=== PATIENT | female | born 1945 | race Caucasian/White ===

== ENCOUNTER → 2017-08-25 11:45 | Outpatient (CLI) | payer MEDICARE, SELFPAY ==
[2017-08-25 12:35] LABS: Absolute Neutrophil Count 2.8 X10^3/uL (2.0-7.7); Basophil# 0.02 X10^3/uL; Basophil% 0.4 % (0-1); Eosinophil# 0.05 X10^3/uL; Eosinophils% 1.1 % (0-5); Hematocrit 34.9 % (37-47); Hemoglobin 11.8 g/dl (12.0-15.0); Lymphocyte % 28.5 % (19-41); Mean Corp Hgb Conc 33.8 g/gl (32-36); Mean Corpuscular Hgb 28.6 pg (27.0-32.0); Mean Corpuscular Volume 84.5 fL (81-99); Mean Platelet Vol. 9.6 fl (6.2-12.0); Monocyte# 0.43 X10^3/uL; Monocyte% 9.4 % (0-10); Neutrophil # 2.75 X10^3/uL (2.7-7.7); Neutrophil % 60.4 % (47-70); Platelet Count 302 K/mm3 (150-450); RBC Distribution Width CV 12.3 % (11.6-14.6); RBC Distribution Width SD 37.3 fl (35.1-43.9); Red Blood Count 4.13 M/mm3 (4.2-5.4); White Blood Count 4.6 K/mm3 (4.4-11.0)
[2017-08-25 12:36] LABS: POSITIVE COUNT NO; POSITIVE DIFFERENTIAL NO; POSITIVE MORPHOLOGY NO
[2017-08-25 12:56] LABS: AST(SGOT) 15 U/L (15-37); Alanine Aminotransfer ALT/SGPT 18 U/L (13-56); Albumin, Serum 3.6 g/dL (3.2-5.0); Alkaline Phosphatase 109 U/L (45-117); Anion Gap 7 (5-15); BUN 15 mg/dL (7-18); BUN/Creat Ratio 21.2 RATIO (10-20); Chloride 100 mmol/L (98-107); Creatinine, Serum 0.71 mg/dL (0.55-1.02); EST Glomerular Filtration Rate 87 mL/min (>60); Est Glom Filt Rate - Afr Amer 105 mL/min (>60); Globulin 3.6 g/dL (2.2-4.2); Glucose 95 mg/dL (74-106); Potassium 4.2 mmol/L (3.5-5.1); Protein, Total 7.2 g/dL (6.4-8.2); Sodium Level 135 mmol/L (136-145)
== END ==
PROVIDERS: Family Provider Nurse Practitioner; PCP Nurse Practitioner; Visit Provider Internal Medicine Rheumatology
DX: M05.70 Rheumatoid arthritis with rheumatoid factor of unspecified site without organ or systems involvement (principal); M65.331 Trigger finger, right middle finger; M65.332 Trigger finger, left middle finger; G40.802 Other epilepsy, not intractable, without status epilepticus; I10 Essential (primary) hypertension; M35.00 Sjogren syndrome, unspecified
CPT/HCPCS: 36415; 80053; 85025

== ENCOUNTER → 2017-09-26 09:19 | Outpatient (CLI) | payer MEDICARE, SELFPAY ==
--- NOTE | 2017-09-26 09:22 | BI_ITS ---
MAMMOGRAPHY - BILATERAL SCREENING 3-D [place] SYNTHESIS REASON FOR EXAM: Female, 71 years old. Bilateral Screening 3-D tomosynthesis PERTINENT HISTORY: Aunt with breast cancer.. TECHNIQUE: 2-D mammograms and 3-D [place] synthesis of the breast (s) were performed. CAD was performed. COMPARISON: 09/21/2016 FINDINGS: The breast composition is composed of scattered fibroglandular density. Scattered benign calcifications are seen. No dense spiculated masses or suspicious microcalcifications are identified. No architectural distortion is identified. There is no skin thickening or retraction. There has been no significant change since the prior study. BI/SCREENING MAMM (CAD), BILAT IMPRESSION: No mammographic signs of malignancy. Routine yearly mammograms recommended. ASSESSMENT CATEGORY: BIRADS Category 2: Benign. A letter regarding these results will be sent to the patient by the facility within 30 days. FOLLOW UP RECOMMENDATION: Yearly follow up mammogram recommended. (A) Approximately 10% of breast cancers are not detected by mammography. A normal mammogram should not delay biopsy of a clinically suspicious abnormality. Electronically Signed: Jordan Gutierrez MD at 8:53 EDT , Service support ,
--- NOTE | 2017-09-26 09:27 | BD_ITS ---
STUDY: DUAL ENERGY X-RAY ABSORPTIOMETRY / DXA REASON FOR EXAM: Female, 71 years old. Postmenopausal screening TECHNIQUE: Bone Mineral Density (BMD) measurements of lumbar spine and bilateral hips were obtained. COMPARISON: 2014 FINDINGS: Lumbar Spine (L1-L4): g/cm2 (0.973) / T-score (-1.6) / Z-score (0.1) Findings are suggestive of osteopenia with a moderate fracture risk. Left Femur Total: g/cm2 (0.952) / T-score (-0.4) / Z-score (1.1) Left Femoral Neck: g/cm2 (0.949) / T-score (-0.6) / Z-score (1.1) Right Femur Total: g/cm2 (0.881) / T-score (-1.0) / Z-score (0.6) Right Femoral Neck: g/cm2 (0.923) / T-score (-0.8) / Z-score (0.9) The T-Scores on the most recent prior examination were: Lumbar Spine (L1-L4): There has been no significant change of bone density since the previous examination. BD/Dexa Bone Density Study IMPRESSION: The patient is considered osteopenic as outlined below according to World Connor Organization (WHO) criteria with a moderate fracture risk. There has been no significant change of bone density since the previous examination. Reference Information: The T-score is the number of standard deviations above or below the standard which is normal for young adults at their peak bone mineral density. The World Health Organization (WHO) interprets the T-scores as follows: Above -1 Normal bone density Between -1 and -2.5 Osteopenia Equal to / or below -2.5 Osteoporosis As a practical clinical guideline, osteopenia may be graded as follows: Mild -1 through -1.5 Moderate -1.6 through -2.0 Severe -2.1 through -2.4 The Z-score is the number of standard deviations above or below age-matched controls. A Z-score of less than -1.5 would be considered abnormal. References: 1. NIH Osteoporosis and Related Bone Diseases http://www.osteo.org 2. International Society for Clinical Densitometry http://www.iscd.org 3. National Osteoporosis Foundation http://www.nof.org Electronically Signed: Jordan Gutierrez MD at 12:30 EDT , Service support ,
== END ==
PROVIDERS: Family Provider Nurse Practitioner; PCP Nurse Practitioner; Visit Provider Nurse Practitioner
DX: Z12.31 Encounter for screening mammogram for malignant neoplasm of breast (principal); Z78.0 Asymptomatic menopausal state; M85.80 Other specified disorders of bone density and structure, unspecified site
CPT/HCPCS: 77063; 77067; 77080

== ENCOUNTER 2017-11-01 22:53 | Observation (INO) | payer MEDICARE, SELFPAY ==
[2017-11-01 22:53] VITALS: BP 178/85; PULSE 68; RESP 18; TEMP 36.4; O2SAT 99; BMI 31.7
--- NOTE | 2017-11-01 23:09 | ED.VISSUMM ---
- ER Visit Summary Date of Service: 11/01/17 Chief Complaint: [] Chest ache History of Present Illness: The patient is a 72 F left-sided chest ache for last 2 days at rest gradual onset lasting several hours of the time. Most of today she has felt it. It was intermittent yesterday but more constant today. To achiness. Current severity is mild. Worsened or relieved by nothing. No injury. No associated symptoms. She takes a baby aspirin. She has never had a stress test or heart cath. Cardiovascular risk factors are hypertension and hypercholesterolemia only. No PE or dissection risk factors. She does have rheumatoid arthritis. Not significantly movement related. No injury Physical Examination: [] Vital signs reviewed General: Well-nourished well-developed Head: Normocephalic atraumatic Eyes: Pupils equal round and reactive to light extraocular movements intact ENT: TMs clear no hemotympanum no trauma Neck: Nontender full range of motion Cardiovascular: Regular rate rhythm no murmurs normal S1-S2 Respiratory: No distress clear to auscultation bilaterally chest nontender Abdomen: Soft nontender nondistended normal bowel sounds no masses Back: Nontender no CVA tenderness Extremities: Nontender active range of motion ?4 extremities no trauma Skin: Normal color no trauma Neuro alert oriented cranial nerves II through XII intact normal strength sensation reflexes Test Results: [] Emergency Department Course and Treatment: [] EKG shows sinus rhythm with a primary heart block. No ischemic findings. No STEMI. T-wave flattening inferior lead III only rate is 62. Lab work unremarkable including troponin. Hemoglobin slightly low at 10.8 which is chronic for the patient. Chronically low white blood cell count as well. Chest x-ray negative. On reevaluation the patient's resting comfortably. No significant discomfort. At this time her heart score is a 5 moderate risk. She will be admitted for further cardiac rule out. I have a low suspicion for PE or dissection Treatment Plan: [] Disposition: [] Impression: [] Left-sided chest pain This note was generated with [employer] dictation software. It may contain incorrect words, spelling, and punctuation that were not noted in review of the chart prior to signing ED Disposition - Plan for ED Patient: Chief Complaint: Chest Pain Referrals: Estrellita Cortez [Primary Care Provider] -
[2017-11-01 23:12] VITALS: O2SAT 98
[2017-11-01] MEDS: Aspirin 81 MG TAB.CHEW 324 MG PO (23:14)
[2017-11-01 23:40] LABS: Absolute Lymphocyte Count 1.27 X10^3/ul (0.83-4.51); Basophil# 0.02 X10^3/uL; Basophil% 0.5 % (0-1); Eosinophil# 0.04 X10^3/uL; Eosinophils% 1.1 % (0-5); Hematocrit 30.8 % (37-47); Hemoglobin 10.8 g/dl (12.0-15.0); Lymphocyte # 1.27 X10^3/ul (4.0); Lymphocyte % 34.1 % (19-41); Mean Corp Hgb Conc 35.1 g/gl (32-36); Mean Corpuscular Hgb 29.3 pg (27.0-32.0); Mean Corpuscular Volume 83.7 fL (81-99); Mean Platelet Vol. 9.1 fl (6.2-12.0); Monocyte# 0.36 X10^3/uL; Monocyte% 9.7 % (0-10); Neutrophil # 2.02 X10^3/uL (2.7-7.7); Neutrophil % 54.3 % (47-70); POSITIVE COUNT NO; POSITIVE DIFFERENTIAL NO; POSITIVE MORPHOLOGY NO; Platelet Count 225 K/mm3 (150-450); RBC Distribution Width CV 12.2 % (11.6-14.6); RBC Distribution Width SD 36.3 fl (35.1-43.9); Red Blood Count 3.68 M/mm3 (4.2-5.4); White Blood Count 3.7 K/mm3 (4.4-11.0)
[2017-11-01 23:49] LABS: Anion Gap 9 (5-15); BUN 16 mg/dL (7-18); BUN/Creat Ratio 19.1 RATIO (10-20); Calcium,Total 8.4 mg/dL (8.5-10.1); Chloride 98 mmol/L (98-107); Creatinine, Serum 0.84 mg/dL (0.55-1.02); EST Glomerular Filtration Rate 71 mL/min (>60); Est Glom Filt Rate - Afr Amer 86 mL/min (>60); Estimated Creatinine Clearance 61.07 ml/min; Glucose 96 mg/dL (74-106); Potassium 3.8 mmol/L (3.5-5.1); Sodium Level 136 mmol/L (136-145)
[2017-11-02 00:29] VITALS: BP 139/73; PULSE 81; RESP 16; O2SAT 96
--- NOTE | 2017-11-02 00:32 | PCM.HP.STD ---
Problem List (1) Chest pain Status: Acute Qualifiers: Chest pain type: unspecified Qualified Code(s): R07.9 - Chest pain, unspecified (2) Leukopenia Status: Chronic Qualifiers: Leukopenia type: neutropenia Neutropenia type: unspecified Qualified Code(s): D70.9 - Neutropenia, unspecified (3) Anemia Status: Chronic Qualifiers: Anemia type: unspecified type Qualified Code(s): D64.9 - Anemia, unspecified (4) Rheumatoid arthritis Status: Chronic Qualifiers: Rheumatoid arthritis location: unspecified site Rheumatoid factor presence: unspecified presence Qualified Code(s): M06.9 - Rheumatoid arthritis, unspecified (5) Epilepsy Status: Chronic Qualifiers: Epilepsy type: unspecified Intractability: not intractable Status epilepticus: without status epilepticus Qualified Code(s): G40.909 - Epilepsy, unspecified, not intractable, without status epilepticus (6) Hyperlipidemia Status: Chronic Qualifiers: Hyperlipidemia type: pure hypercholesterolemia Qualified Code(s): E78.00 - Pure hypercholesterolemia, unspecified; E78.0 - Pure hypercholesterolemia (7) Hypertension Status: Chronic Qualifiers: Hypertension type: essential hypertension Qualified Code(s): I10 - Essential (primary) hypertension History of Present Illness Date of Admission: 11/02/17 Chief Complaint: Chest pain The patient is a 72 y/o F w/ PMHx: Chronic Leukopenia, Chronic Normocytic Anemia, Epilepsy, Rheumatoid Arthritis, HTN, HLD, Obesity who presents to the [facility] ED on 11/02/17 with history of onset of left sided chest aching starting the day prior, intermittent, rated 4/10 when present with no associated symptoms including nausea, emesis, diaphoresis or dyspnea, but noted to be worse with certain activities, i.e. bending over. Upon evaluation upon admission the patient noted currently resolution of chest pain. In the ED work-up included T 97.6, HR 68, BP 178/85-->139/73, RR 18, 99% on RA, CBC w/ WBC 3.7, Hgb 10.8, Plts 225 without shift, unremarkable BMP, trop < 0.015, CXR without acute process, EKG w/ chronic inferior lead III T wave flattening w/ 1AVB otherwise unremarkable. In the ED patient administered ASA. Past Medical History Past Medical History (Chronic Problems): Chronic Problems Leukopenia (Chronic) Anemia (Chronic) Pancytopenia (Chronic) Rheumatoid arthritis (Chronic) Epilepsy (Chronic) Hyperlipidemia (Chronic) Hypertension (Chronic) Allergies No Known Allergies Allergy (Verified 11/01/17 22:56) Home Medications: Ambulatory Orders Medication Instructions Recorded Aspirin [Aspirin, Baby] 81 mg PO DAILY@0800 03/25/13 Citalopram [Celexa] 20 mg PO DAILY 03/25/13 Hydroxychloroquine [Plaquenil] 200 mg PO DAILYCM 03/25/13 Losartan/Hydrochlorothiazide 1 tab PO DAILY 03/25/13 [Hyzaar 50-12.5 Tablet] Triamcinolone Acetonide [Nasacort 1 spray NASAL DAILY PRN 03/25/13 Aq Nasal [place]] Tegretol Xr 400 mg PO BID 03/26/13 Cholecalciferol (Vitamin D3) 1,000 unit PO DAILY 11/01/17 [Vitamin D3] Surgical History: - - C-sestion x 3, Cholecystectomy, Mastoid surgery, Ear Tubes, T+A. Psychiatric History: Depression BALLISTICIAN History: No pertinent BALLISTICIAN history Lives: Spouse/ Significant Other Smoking Status: Never smoker Tobacco Use: Non-smoker Alcohol: None Drugs: None - *Family History Maternal History Items: Cancer, Heart Disease Paternal History Items: Cancer Review of Systems Constitutional: Reports: Fatigue. Denies: Chills, Fever, Weight Change HEENT: Denies: Head Aches, Sinus Congestion, Sinus Drainage Cardiovascular: Reports: Chest Pain. Denies: Chest Pressure, Chest Tightness, Light Headedness, Orthopnea, Palpitations, Syncope Respiratory: Denies: Cough, Shortness of Breath, Shortness of breath at rest, Shortness of breath upon exertion, Sputum production Gastrointestinal: Denies: Abdominal Pain, Nausea, Vomiting Genitourinary: Denies: Dysuria Musculoskeletal: Reports: Joint stiffness. Denies: Joint Pain, Joint Tenderness Skin: Denies: Rash, Wounds Neurological: Denies: Numbness, Tingling, Focal weakness Psychiatric: Denies: Anxiety, Depression, Homicidal Ideations, Suicidal Ideations Hematologic/ Lymphatic: Reports: Anemia. Denies: Easy Bruising, Easy Bleeding VTE Information - Inpt Only VTE Present on Admission: No VTE Mechan Device Prophylaxis: SCD's VTE Pharm Prophylaxis ordered?: Yes Patient Problems: Active and Suspected Problems Chest pain (Acute) Subjective: Seated upright in the bed, NAD, notes currently chest pain resolved. Objective: Physical Examination: General: awake, alert, oriented x 3 and cooperative, seated upright in bed in no apparent distress. Skin: normal color, turgor, no icterus, cyanosis. HEENT: AT/NC, EOMI, PERRLA, MMM, no carotid bruits or JVD noted. Lungs: CTA bilaterally, moderate effort, mild decrease BL bases, no rales, ronchi or wheezing. Heart: Regular rate and rhythm; no gallop, rub audible. Abdomen: soft, obese, NTTP, ND, normal BS, no HSM. Extremities: no cyanosis, clubbing, or edema. Neurological: patient awake, alert, oriented x 3; cognitive function intact; pupils equally reactive to light and accomodation; cranial nerves II-XII grossly normal, moving all 4 extremities, no focal deficits, strength preserved. Psychiatric: affect appears normal, no acute evidence of depressive or anxiety feelings. - Physical Exam Vital Signs Temp Pulse Resp BP Pulse Ox 97.6 F L 81 16 139/73 H 96 11/01/17 22:53 11/02/17 00:29 11/02/17 00:29 11/02/17 00:29 11/02/17 00:29 Oxygen Flow Rate (L/min) 2 Oxygen Delivery Method Room Air Weight: 208 lb 12.444 oz Body Mass Index (BMI) 31.7 Laboratory Tests Past 24 Hrs 11/01/17 11/01/17 23:05 23:05 WBC 3.7 L RBC 3.68 L Hgb 10.8 L Hct 30.8 L MCV 83.7 MCH 29.3 MCHC 35.1 RDW 12.2 RDW Differential 36.3 Plt Count 225 MPV 9.1 Immature Gran % (Auto) 0.300 Neut % (Auto) 54.3 Lymph % (Auto) 34.1 [place] % (Auto) 9.7 Eos % (Auto) 1.1 Baso % (Auto) 0.5 Absolute Neuts (auto) 2.0 Absolute Lymphs (auto) 1.27 Total Counted Not Reportable Sodium 136 Potassium 3.8 Chloride 98 Carbon Dioxide 29.0 Anion Gap 9 BUN 16 Creatinine 0.84 Estim Creat Clear Calc 61.07 Est GFR (MDRD) Af Amer 86 Est GFR (MDRD) Non-Af 71 BUN/Creatinine Ratio 19.1 Glucose 96 Calcium 8.4 L Troponin I < 0.015 Assessment/Plan All Active Problems Chest pain (Acute) Flu-like symptoms (Acute) Neutropenic fever (Acute) The patient is a 72 y/o F w/ PMHx: Chronic Leukopenia, Chronic Normocytic Anemia, Epilepsy, Rheumatoid Arthritis, HTN, HLD, Obesity who presents to the [facility] ED on 11/02/17 with history of onset of left sided chest aching starting the day prior, intermittent, rated 4/10 when present with no associated symptoms including nausea, emesis, diaphoresis or dyspnea, but noted to be worse with certain activities, i.e. bending over. (1) Chest Pain: In the ED work-up included T 97.6, HR 68, BP 178/85-->139/73, RR 18, 99% on RA, CBC w/ WBC 3.7, Hgb 10.8, Plts 225 without shift, unremarkable BMP, trop < 0.015, CXR without acute process, EKG w/ chronic inferior lead III T wave flattening w/ 1AVB otherwise unremarkable. In the ED patient administered ASA. Will admit to PCU, place on a monitored bed to assure no acute myocardial infarction with serial cardiac enzymes and EKGs. Given patient age and underlying history of RA suspect limited exercise ability thus will proceed with AM nuclear stress testing. ASA, NG, morphine. FLP in AM. Mag pending. (2) Chronic Normocytic Anemia, Leukopenia: Admission CBC w/ WBC 3.7, Hgb 10.8, Plts 225 without shift, stable compared to baseline, previously also had thrombocytopenia. Unclear specific etiology but suspect likely to her chronic usage of AED specifically tegretol. (3) Rheumatoid Arthritis: Maintain on home plaquenil regimen. (4) Seizure Disorder: Continue home tegretol regimen. (5) Hypertension: Will maintain on losartan/HCTZ, PRN hydralazine. (6) Hyperlipidemia: Not on regimen, obtain FLP in AM. (7) Obesity: Weight loss and lifestyle changes encouraged. (8) DVT Prophylaxis: SCDs, lovenox. Code Visit OBSV E&M: 03473 Initial observation care L3
--- NOTE | 2017-11-02 00:40 | NURSING ---
Er litigation attorney aware pt ok for floor at this time.
[2017-11-02 01:17] VITALS: BP 151/68; PULSE 56; PULSE 58; RESP 16; TEMP 36.6; O2SAT 99
[2017-11-02 01:19] VITALS: BMI 31.6
[2017-11-02 01:32] VITALS: BMI 31.6
[2017-11-02] MEDS: 0.9% Normal Saline 1,000 ML 100 ML IV (01:48)
[2017-11-02 03:03] VITALS: PULSE 58
[2017-11-02 03:18] LABS: Hematocrit 28.5 % (37-47); Hemoglobin 10.2 g/dl (12.0-15.0); Mean Corp Hgb Conc 35.8 g/gl (32-36); Mean Corpuscular Hgb 29.7 pg (27.0-32.0); Mean Corpuscular Volume 82.8 fL (81-99); Mean Platelet Vol. 9.1 fl (6.2-12.0); Platelet Count 211 K/mm3 (150-450); RBC Distribution Width CV 12.1 % (11.6-14.6); RBC Distribution Width SD 35.6 fl (35.1-43.9); Red Blood Count 3.44 M/mm3 (4.2-5.4); White Blood Count 3.8 K/mm3 (4.4-11.0)
[2017-11-02 03:32] LABS: AST(SGOT) 16 U/L (15-37); Alanine Aminotransfer ALT/SGPT 15 U/L (13-56); Albumin, Serum 3.1 g/dL (3.2-5.0); Alkaline Phosphatase 93 U/L (45-117); Anion Gap 10 (5-15); BUN 15 mg/dL (7-18); BUN/Creat Ratio 21.8 RATIO (10-20); Calcium,Total 8.1 mg/dL (8.5-10.1); Chloride 99 mmol/L (98-107); Cholesterol 159 mg/dL (200); Creatinine, Serum 0.69 mg/dL (0.55-1.02); EST Glomerular Filtration Rate 89 mL/min (>60); Est Glom Filt Rate - Afr Amer 108 mL/min (>60); Globulin 3.2 g/dL (2.2-4.2); Glucose 98 mg/dL (74-106); High Density Lipoprotein 65 mg/dL; Potassium 4.1 mmol/L (3.5-5.1); Protein, Total 6.3 g/dL (6.4-8.2); Sodium Level 135 mmol/L (136-145); Triglycerides 98 mg/dL; Very Low Density Lipoprotein 20 mg/dL (5-40)
[2017-11-02 03:50] LABS: Scan Indicated on CBC? Y/N NO
[2017-11-02 05:28] LABS: International Normalized Ratio 1.1; Prothrombin Time (Protime)PT. 13.8 SECONDS (11.7-14.9)
[2017-11-02 05:29] LABS: Partial Thromboplast Time 28.8 Seconds (24.1-36.2)
[2017-11-02 05:38] VITALS: O2SAT 95
[2017-11-02 06:04] VITALS: BP 163/70; PULSE 61; RESP 16; TEMP 36.9; O2SAT 95
[2017-11-02] MEDS: Aspirin 81 MG TAB.CHEW PO (06:07)
[2017-11-02 08:30] VITALS: PULSE 56
[2017-11-02] MEDS: Hydroxychloroquine 200 MG Tablet PO (09:09)
[2017-11-02] MEDS: HYDROCHLOROTHIAZIDE 12.5 MG CAPSULE PO (09:10)
[2017-11-02] MEDS: Losartan Potassium 50 MG Tablet PO (09:10)
[2017-11-02] MEDS: Citalopram 20 MG Tablet PO (09:10)
[2017-11-02] MEDS: Famotidine 20 MG Tablet PO (09:11)
--- NOTE | 2017-11-02 09:51 | STRESSREP ---
Stress Test Report Date: 11/02/2017 Procedure: Exercise tolerance test/imaging study Indications: Chest pain Consent: Per the patient Procedure: The patient exercised on a Osman protocol for 4 minutes completing Stage I and 1 minute of Stage II achieving a peak heart rate of 127 bpm (85 % predicted maximal heart rate) with a peak blood pressure 172/60 mmHg and a peak MET capacity of 5 METs. The baseline ECG demonstrated sinus bradycardia. The peak exercise ECG demonstrated somatic/motion artifact with no obvious ECG changes. There were no cardiac dysrhythmias pretest, during exercise, or recovery. The functional capacity was considered average. There was no complaint of chest discomfort during exercise or recovery. The examination was discontinued secondary to dyspnea. Impression: 1. Technically adequate (percent predicted maximal heart rate greater than 85%) exercise tolerance test 2. Peak exercise ECG demonstrated somatic/motion artifact with no obvious ECG changes 3. There were no cardiac dysrhythmias pretest, during exercise, or recovery. 4. Nuclear images pending Myocardial perfusion imaging study: Technique: The patient was injected with 11.9 mCi of technetium 99m Cardiolite and subsequently rest SPECT Cardiolite nuclear imaging was obtained in the horizontal long, vertical long, and short axis views. The patient exercised on a Osman protocol for 4 minutes completing Stage I and 1 minute of Stage II achieving a peak heart rate of 127 bpm (85 % predicted maximal heart rate) with a peak blood pressure 172/60 mmHg and a peak MET capacity of 5 METs. The patient was injected with 33.6 mCi of technetium 99m Cardiolite and subsequently stress SPECT Cardiolite nuclear imaging was obtained in the horizontal long, vertical long, and short axis views. A gated Cardiolite study at peak stress was obtained. Interpretation: Rest and stress SPECT Cardiolite nuclear imaging status post realignment, normalization, and attenuation correction, demonstrates the appearance of relative uniform tracer uptake and myocardial perfusion appearing within normal limits. There is end systolic thickening and brightening. The gated Cardiolite study demonstrates myocardial thickening and inward wall motion. The reported LVEF is 74 %. Impression: 1. Rest and stress SPECT Cardiolite nuclear imaging demonstrate relative uniform tracer uptake and myocardial perfusion appearing within normal limits. 2. The gated Cardiolite study reports an LVEF of 74 %. This note was generated with [employer] software. It may contain incorrect words, spelling, and punctuation that were not noted in checking the note before signing.
--- NOTE | 2017-11-02 10:07 | PCM.DC ---
- Discharge Diagnoses Current Active Problems: Current Active and Chronic Problems Leukopenia (Chronic) Anemia (Chronic) Chest pain (Acute) You will use the following diet at home:: Cardiac Discharge Activity: Return to Normal Activity Call your doctor if you observe: Shortness of breath, Dizziness, Fainting spells, Chest pain Additional Instructions: Your blood pressure was above goal during admission. Recommned checking your blood pressure twice daily and documenting findings to report to primary care provider. You may need to increase your losartan/HCTZ regimen to twice daily if blood pressure remains elevated. Allergies/Adverse Reactions: Allergies No Known Allergies Allergy (Verified 11/01/17 22:56) Medications to take at Discharge Aspirin [Aspirin, Baby] 81 mg PO DAILY@0800 03/25/13 Citalopram [Celexa] 20 mg PO DAILY 03/25/13 Hydroxychloroquine [Plaquenil] 200 mg PO DAILYCM 03/25/13 Losartan/Hydrochlorothiazide [Hyzaar 50-12.5 Tablet] 1 tab PO DAILY 03/25/13 Triamcinolone Acetonide [Nasacort Aq Nasal [place]] 1 spray NASAL DAILY PRN 03/25/13 Tegretol Xr 400 mg PO BID 03/26/13 Cholecalciferol (Vitamin D3) [Vitamin D3] 1,000 unit PO DAILY 11/01/17 Primary Care Physician: Estrellita Cortez [Primary Care Provider] - Please follow up with your Primary Care Physician in: 1 Week Test Results: Test results from this visit will be discussed in further detail at your follow-up appointment, if applicable. Proposed Discharge Date: 11/02/17
--- NOTE | 2017-11-02 10:11 | PCM.DC.SUM ---
<Chely Carrera - Last Filed: 11/02/17 10:23> Discharge Date and Diagnosis Date of Admission: 11/02/17 Date of Discharge: 11/02/17 - Primary Discharge Diagnosis Active and Suspected Problems 1. Noncardiac chest pain - Secondary Discharge Diagnosis Chronic Problems Leukopenia (Chronic) Anemia (Chronic) Pancytopenia (Chronic) Rheumatoid arthritis (Chronic) Epilepsy (Chronic) Hyperlipidemia (Chronic) Hypertension (Chronic) Hospital Course and Treatment Imaging Results: Operations: None Procedures: Stress test Summary of Care Provided: The patient is a 72 year old F admitted 11/02/2017 due to chest pain. She has a past medical history of chronic leukopenia, chronic normocytic anemia, epilepsy, rheumatoid arthritis, hypertension, hyperlipidemia, obesity. Patient denies further chest pain during admission. Troponin negative. Chest x-ray without acute process. EKG with chronic inferior lead III T-wave flattening. Patient underwent nuclear stress test which was negative for ischemia. Blood pressure mildly elevated during admission. Patient notes she checks her blood pressure at home and is typically 130s systolically. Recommend patient check blood pressure twice daily at home and document findings to report to primary care physician. If her blood pressure remains above goal, recommend increasing losartan/HCT regimen to twice daily. Follow-up with primary care physician in 1 week. Other chronic medical conditions as noted above are stable at this time. Patient seen exam prior to discharge. Alert, oriented, no acute distress. Lungs clear. Heart rate regular rate and rhythm, no murmur. Abdomen soft, nontender. No edema. Neuro grossly intact. Normal affect. Patient seen exam prior to discharge. Physical assessment as noted above. Patient is stable for discharge home with a follow-up recommendations as noted above. This patient was seen by DEJAH Mcneill under the supervision of Dr. Mitchell. Discharge Diet: Low fat/ Low Cholesterol Discharge Activity: Return to Normal Activity Call your doctor if you observe: Shortness of breath, Dizziness, Fainting spells, Chest pain Home Medications: Medications to take at Discharge Aspirin [Aspirin, Baby] 81 mg PO DAILY@0800 03/25/13 Citalopram [Celexa] 20 mg PO DAILY 03/25/13 Hydroxychloroquine [Plaquenil] 200 mg PO DAILYCM 03/25/13 Losartan/Hydrochlorothiazide [Hyzaar 50-12.5 Tablet] 1 tab PO DAILY 03/25/13 Triamcinolone Acetonide [Nasacort Aq Nasal [place]] 1 spray NASAL DAILY PRN 03/25/13 Tegretol Xr 400 mg PO BID 03/26/13 Cholecalciferol (Vitamin D3) [Vitamin D3] 1,000 unit PO DAILY 11/01/17 Primary Care Physician: Estrellita Cortez [Primary Care Provider] - Please follow up with your Primary Care Physician in: 1 Week Additional Instructions: Your blood pressure was above goal during admission. Recommned checking your blood pressure twice daily and documenting findings to report to primary care provider. You may need to increase your losartan/HCTZ regimen to twice daily if blood pressure remains elevated. Disposition: Home Minutes spent on discharge:: 35 Patient Condition:: Stable Medical Necessity - Tobacco Use Smoking Status: Never smoker Tobacco Use: Non-smoker Meaningful Use Info Meaningful Use Diagnoses (Choose all that apply): None applicable <StephenVeronica Mariya - Last Filed: 11/02/17 11:50> Discharge Date and Diagnosis - Secondary Discharge Diagnosis Chronic Problems Leukopenia (Chronic) Anemia (Chronic) Pancytopenia (Chronic) Rheumatoid arthritis (Chronic) Epilepsy (Chronic) Hyperlipidemia (Chronic) Hypertension (Chronic) Hospital Course and Treatment Imaging Results: 11/02/17 05:55 Nuclear Stress Test - Treadmil [NM] Routine Summary of Care Provided: Patient seen by Chely POND under my supervision. The patient is a 72 year old F with past medical history as documented above. She was admitted on 11/02/2017 with a complaint of left-sided chest aching of one day duration which was intermittent and rated about 4/10. She had no associated nausea, lightheadedness, dizziness, nausea or vomiting. Troponins were negative chest x-ray showed no acute cardiopulmonary process and EKG showed no acute ST changes. Chest pain had resolved at time of review and didnt recur. She was admitted and managed for chest pain, to rule out ACS. She had a stress test on 11/02/17 which was negative. Seen and examined. Agree with above assessment and plan by Chely POND. Blood pressure was noted to be mildly elevated during admission being in the 150s and 160s systolic. However according to patient blood pressure at home is usually in the 130s systolic. Patient was discharged to continue her home medications and check her blood pressure at home and documented. She is present a log of her blood pressure to her primary care doctor. [] Code Visit Inpatient E&M: 22163 Disch Hosp
== END 2017-11-02 10:08 | disposition home or self-care (01) ==
LOC: ED 23:30 → PCU 11-02 00:38
PROVIDERS: Admitting Provider Family Medicine; Emergency Provider Emergency Medicine; Family Provider Nurse Practitioner; PCP Nurse Practitioner; Visit Provider Student in an Organized Health Care Education/Training Program
DX: R07.89 Other chest pain (principal); I10 Essential (primary) hypertension; M06.9 Rheumatoid arthritis, unspecified; Z79.82 Long term (current) use of aspirin; E78.5 Hyperlipidemia, unspecified; G40.909 Epilepsy, unspecified, not intractable, without status epilepticus; D64.9 Anemia, unspecified; E66.9 Obesity, unspecified; Z68.31 Body mass index [BMI] 31.0-31.9, adult; Z71.3 Dietary counseling and surveillance; Z79.899 Other long term (current) drug therapy
CPT/HCPCS: 36415; 71046; 78452; 80048; 80053; 80061; 83735; 84484; 85025; 85027; 85610; 85730; 93005; 93017; 96360; 96361; 99218; 99283; A9500; J7030; A4216; G0378; J2785

== ENCOUNTER → 2018-02-07 09:31 | Outpatient (CLI) | payer MEDICARE, SELFPAY ==
[2018-02-07 10:13] LABS: Absolute Lymphocyte Count 0.84 X10^3/ul (0.83-4.51); Basophil# 0.01 X10^3/uL; Basophil% 0.3 % (0-1); Eosinophil# 0.05 X10^3/uL; Eosinophils% 1.6 % (0-5); Hematocrit 31.8 % (37-47); Hemoglobin 10.8 g/dl (12.0-15.0); Lymphocyte # 0.84 X10^3/ul (4.0); Lymphocyte % 27.3 % (19-41); Mean Corpuscular Hgb 28.6 pg (27.0-32.0); Mean Corpuscular Volume 84.4 fL (81-99); Mean Platelet Vol. 9.1 fl (6.2-12.0); Monocyte# 0.22 X10^3/uL; Monocyte% 7.1 % (0-10); Neutrophil # 1.95 X10^3/uL (2.7-7.7); Neutrophil % 63.4 % (47-70); Platelet Count 256 K/mm3 (150-450); RBC Distribution Width CV 12.4 % (11.6-14.6); RBC Distribution Width SD 37.2 fl (35.1-43.9); Red Blood Count 3.77 M/mm3 (4.2-5.4); White Blood Count 3.1 K/mm3 (4.4-11.0)
[2018-02-07 10:15] LABS: Color, Urine Yellow (Yellow); Glucose, Dipstick Normal (Normal); Ketone-Dipstick Negative (Negative); Leukocyte Esterase-Dipstick 100 /ul (Negative); Nitrite-Dipstick Negative (Negative); Occult Blood-Urine Negative /ul (Negative); Protein-Dipstick 15 mg/dl (Negative); Urine Bilirubin Dipstick Negative (Negative); Urine Clarity Clear (Clear); Urine Urobilinogen Normal (Normal)
[2018-02-07 10:18] LABS: POSITIVE COUNT NO; POSITIVE DIFFERENTIAL NO; POSITIVE MORPHOLOGY NO
[2018-02-07 10:33] LABS: Microalbumin,Random Urine 8.1 mg/L (NO RANGE EST.); Microalbumin:Creatinine Ratio 6.8 mg/g CRE (<30 mg/g CRE)
[2018-02-07 10:46] LABS: Carbamazepine (Tegretol) 8.4 ug/mL (4.0-12.0)
[2018-02-07 10:47] LABS: Vitamin B12 951 pg/mL (211-911); Vitamin D,25 Hydroxy 53.8 ng/mL (29.95-100.01)
[2018-02-07 10:52] LABS: ALB/GLOB Ratio 0.9 RATIO (0.9-2.4); AST(SGOT) 17 U/L (15-37); Alanine Aminotransfer ALT/SGPT 19 U/L (13-56); Albumin, Serum 3.3 g/dL (3.2-5.0); Alkaline Phosphatase 109 U/L (45-117); Anion Gap 9 (5-15); BUN 15 mg/dL (7-18); BUN/Creat Ratio 21.5 RATIO (10-20); Calcium,Total 8.8 mg/dL (8.5-10.1); Chloride 101 mmol/L (98-107); Cholesterol 189 mg/dL (200); EST Glomerular Filtration Rate 88 mL/min (>60); Est Glom Filt Rate - Afr Amer 106 mL/min (>60); Globulin 3.7 g/dL (2.2-4.2); Glucose 83 mg/dL (74-106); High Density Lipoprotein 67 mg/dL; Potassium 4.3 mmol/L (3.5-5.1); Sodium Level 139 mmol/L (136-145); Triglycerides 118 mg/dL; Very Low Density Lipoprotein 24 mg/dL (5-40)
== END ==
PROVIDERS: Family Provider Nurse Practitioner; PCP Nurse Practitioner; Referring Provider Nurse Practitioner; Visit Provider Nurse Practitioner
DX: I10 Essential (primary) hypertension (principal); R56.9 Unspecified convulsions; D72.819 Decreased white blood cell count, unspecified; E53.8 Deficiency of other specified B group vitamins; E55.9 Vitamin D deficiency, unspecified
CPT/HCPCS: 36415; 80053; 80061; 80156; 81002; 82043; 82306; 82570; 82607; 82746; 85025

== ENCOUNTER → 2018-05-25 07:34 | Outpatient (CLI) | payer MEDICARE, SELFPAY ==
--- NOTE | 2018-05-25 07:37 | ECHOD_ITS ---
Reason For Study: Murmur Procedure This was a 2D Doppler, Color Flow transthoracic echocardiogram. Exam performed in department. Left Ventricle Normal LV size. The estimated ejection fraction is 60 %. Left ventricular systolic function is normal. Stage 2 diastolic dysfunction. No regional wall motion abnormalities noted. Right Ventricle Normal RV size. Normal systolic function. Atria The left atrium is mildly enlarged. Normal right atrium. Mitral Valve Normal mitral valve. Mild (1+) mitral valve insufficiency. Tricuspid Valve Normal tricuspid valve. Mild (1+) tricuspid valve insufficiency. Pulmonary artery systolic pressure is 30 mmHg. Aortic Valve Trisinus/trileaflet aortic valve. Mild focal aortic valve calcification. Pulmonic Valve Normal pulmonic valve. Great Vessels Normal aortic root. The pulmonary artery is normal size. Normal inferior vena cava. Pericardium/Pleural No pericardial effusion. MMode/2D Measurements & Calculations LVIDd: 4.5 cm IVSd: 1.2 cm Ao root diam: 3.2 cm LVIDs: 2.7 cm LVPWd: 1.1 cm LA dimension: 3.6 cm RVDd: 3.6 cm FS: 39.4 % LAV(MOD-sp4): 71.1 ml LA A4 area: 23.1 cm2 RA A4 area: 14.2 cm2 Time Measurements MV dec time: 0.28 sec Doppler Measurements & Calculations MV E max nayan: 89.5 cm/sec Lat Peak E' Nayan: 5.9 cm/sec Med Peak E' Nayan: 5.7 cm/sec MV A max nayan: 118.6 cm/sec E/E' lat: 15.2 E/E' med: 15.6 MV E/A: 0.75 MV V2 max: 128.1 cm/sec MV P1/2t max nayan: 103.0 cm/sec Ao V2 max: 161.3 cm/sec MV max P.6 mmHg MV P1/2t: 115.0 msec Ao max P.4 mmHg MV V2 mean: 70.6 cm/sec MV dec slope: 262.5 cm/sec2 Ao V2 mean: 104.0 cm/sec MV mean P.3 mmHg MVA(P1/2t): 1.9 cm2 Ao mean P.9 mmHg MV V2 VTI: 40.9 cm Ao V2 VTI: 36.8 cm LV V1 max: 114.2 cm/sec PA V2 max: 111.7 cm/sec PI end-d nayan: 105.9 cm/sec LV V1 max P.2 mmHg LV V1 mean P.1 mmHg LV V1 mean: 65.2 cm/sec LV V1 VTI: 25.3 cm TR max nayan: 250.8 cm/sec TR max P.2 mmHg Interpretation Summary Normal LV size. The estimated ejection fraction is 60 %. Left ventricular systolic function is normal. Stage 2 diastolic dysfunction. The left atrium is mildly enlarged. Ordering Physician: Estrellita Cortez Referring Physician: Estrellita Cortez Performed By: Dominic Greene RCS
== END ==
PROVIDERS: Family Provider Nurse Practitioner; PCP Nurse Practitioner; Referring Provider Nurse Practitioner; Visit Provider Nurse Practitioner
DX: R01.1 Cardiac murmur, unspecified (principal)
CPT/HCPCS: 93306

== ENCOUNTER → 2018-08-07 11:08 | Outpatient (CLI) | payer MEDICARE, SELFPAY ==
[2018-08-07 11:39] LABS: Absolute Lymphocyte Count 0.97 X10^3/ul (0.83-4.51); Absolute Neutrophil Count 1.9 X10^3/uL (2.0-7.7); Eosinophil# 0.05 X10^3/uL; Eosinophils% 1.5 % (0-5); Hematocrit 29.6 % (37-47); Lymphocyte # 0.97 X10^3/ul (4.0); Lymphocyte % 29.8 % (19-41); Mean Corp Hgb Conc 33.8 g/gl (32-36); Mean Corpuscular Volume 82.9 fL (81-99); Monocyte% 9.2 % (0-10); Neutrophil # 1.92 X10^3/uL (2.7-7.7); Neutrophil % 58.9 % (47-70); POSITIVE COUNT NO; POSITIVE DIFFERENTIAL NO; POSITIVE MORPHOLOGY NO; Platelet Count 249 K/mm3 (150-450); RBC Distribution Width CV 12.2 % (11.6-14.6); RBC Distribution Width SD 36.1 fl (35.1-43.9); Red Blood Count 3.57 M/mm3 (4.2-5.4); White Blood Count 3.3 K/mm3 (4.4-11.0)
[2018-08-07 12:05] LABS: ALB/GLOB Ratio 0.9 RATIO (0.9-2.4); AST(SGOT) 14 U/L (15-37); Alanine Aminotransfer ALT/SGPT 15 U/L (13-56); Albumin, Serum 3.1 g/dL (3.2-5.0); Alkaline Phosphatase 106 U/L (45-117); Anion Gap 8 (5-15); BUN 13 mg/dL (7-18); BUN/Creat Ratio 18.4 RATIO (10-20); Calcium,Total 8.3 mg/dL (8.5-10.1); Chloride 99 mmol/L (98-107); Creatinine, Serum 0.71 mg/dL (0.55-1.02); EST Glomerular Filtration Rate 86 mL/min (>60); Est Glom Filt Rate - Afr Amer 105 mL/min (>60); Globulin 3.4 g/dL (2.2-4.2); Glucose 90 mg/dL (74-106); Potassium 3.9 mmol/L (3.5-5.1); Protein, Total 6.5 g/dL (6.4-8.2); Sodium Level 134 mmol/L (136-145)
== END ==
PROVIDERS: Family Provider Nurse Practitioner; PCP Nurse Practitioner; Referring Provider Internal Medicine Rheumatology; Visit Provider Internal Medicine Rheumatology
DX: M05.70 Rheumatoid arthritis with rheumatoid factor of unspecified site without organ or systems involvement (principal); M35.00 Sjogren syndrome, unspecified; M65.331 Trigger finger, right middle finger; M65.332 Trigger finger, left middle finger; I10 Essential (primary) hypertension; G40.802 Other epilepsy, not intractable, without status epilepticus
CPT/HCPCS: 36415; 80053; 85025

== ENCOUNTER → 2018-09-28 10:48 | Outpatient (CLI) | payer MEDICARE, SELFPAY ==
--- NOTE | 2018-09-28 10:49 | BI_ITS ---
MAMMOGRAPHY - BILATERAL SCREENING 3-D TOMOSYNTHESIS REASON FOR EXAM: Female, 72 years old. Bilateral Screening 3-D tomosynthesis PERTINENT HISTORY: Aunt with breast cancer.. TECHNIQUE: 2-D mammograms and 3-D Tomosynthesis of the breast (s) were performed. CAD was performed. COMPARISON: None. FINDINGS: The breast composition is composed of scattered fibroglandular density. Scattered benign calcifications are seen. No dense spiculated masses or suspicious microcalcifications are identified. No architectural distortion is identified. There is no skin thickening or retraction. There has been no significant change since the prior study. BI/SCREEN MAMM (CAD) W/CHINO BILAT IMPRESSION: No mammographic signs of malignancy. Routine yearly mammograms recommended. ASSESSMENT CATEGORY: BIRADS Category 1: Negative. A letter regarding these results will be sent to the patient by the facility within 30 days. FOLLOW UP RECOMMENDATION: Yearly follow up mammogram recommended. (A) Approximately 10% of breast cancers are not detected by mammography. A normal mammogram should not delay biopsy of a clinically suspicious abnormality. Electronically Signed: Jordan Gutierrez MD at 13:04 EDT , Service support ,
== END ==
PROVIDERS: Family Provider Nurse Practitioner; PCP Nurse Practitioner; Referring Provider Nurse Practitioner; Visit Provider Nurse Practitioner
DX: Z12.31 Encounter for screening mammogram for malignant neoplasm of breast (principal)
CPT/HCPCS: 77063; 77067

== ENCOUNTER 2018-10-23 21:40 | Emergency (ER) | payer MEDICARE, SELFPAY ==
[2018-10-23 21:42] VITALS: BP 160/75; PULSE 70; RESP 16; TEMP 35.8; O2SAT 97; BMI 30.2
--- NOTE | 2018-10-23 21:53 | EKG12_ITS ---
Test Reason : HTN Blood Pressure : / mmHG Vent. Rate : 063 BPM Atrial Rate : 063 BPM P-R Int : 218 ms QRS Dur : 110 ms QT Int : 436 ms P-R-T Axes : 077 -09 049 degrees QTc Int : 446 ms Sinus rhythm with 1st degree A-V block Minimal voltage criteria for LVH, may be normal variant Borderline ECG Confirmed by DEMARIO GREENE ([id number]), videotape editor VIRIDIANA COREA ([id number]) on 10/29/2018 2:15:55 PM Referred By: SEVEN Confirmed By:DEMARIO GREENE
--- NOTE | 2018-10-23 21:53 | CT_ITS ---
HISTORY:CEPHALGIA, HTN CEPHALGIA, HTN TECHNIQUE: Multiple axial images were obtained of the brain without intravenous contrast. A radiation dose optimization technique was used for this scan. IV Contrast dosage and agent: None. COMPARISON: None FINDINGS: # of images incl. paperwork: 247 INFARCT: None HEMORRHAGE: None PARENCHYMAL ATTENUATION:Normal for age MASS: None MIDLINE SHIFT: None BASAL CISTERNS: Patent VENTRICLES: Normal in size and configuration for age PARANASAL SINUSES:Mucous retention cystin the bilateral maxillary sinuses MASTOID AIR CELLS: Clear ORBITS:No acute pathology CALVARIUM: No acute pathology OTHER TISSUES: No acute pathology ASPECTS Score for Acute Strokes: 10 CT/Brain/Head without Contrast IMPRESSION: No acute intracranial pathology. If symptoms persist consider mri for further evaluation if clinically indicated. Individualized dose optimization techniques were used for this CT. at 2239 Reported and signed by: Alycia Zapata DO Electronically Signed: Alycia Zapata DO at 22:38 EDT Tel , Service support ,
--- NOTE | 2018-10-23 21:54 | ED.DCSUM_ITS ---
History of Present Illness Chief Complaint: Hypertension Detail of Chief Complaint: Headache and cold sensation across chest Informant: Patient, Family Onset: Today Current Severity: Mild Maximum Severity: Moderate Narrative: Patient presents stating that she just did not feel well all day and felt tired. 45 minutes prior to arrival she had sharp pain in the left scalp region. She then had a cold sensation down her chest into her legs. The bottoms of her feet but they were tingling. She had a second episode that was less severe. She did take baby aspirin this morning and took 1 extra tab this evening. Patient does have a history of hypertension. Within the last 1 to 4 weeks she has had 2 medication adjustments to try to better control her blood pressure. Past Medical History - Allergies and Home Meds Allergies/Adverse Reactions: Allergies No Known Allergies Allergy (Verified 11/01/17 22:56) Primary Care Physician: Estrellita Cortez NP-C [Primary Care Provider] - Prior records reviewed: Yes Past Medical History: - - Reviewed Surgical History: - - C-sestion x 3, Cholecystectomy, Mastoid surgery, Ear Tubes, T+A. Lives: Spouse/ Significant Other Smoking Status: Never smoker - Family History Maternal Family History: Reports: Cancer, Heart Disease Paternal Family History: Reports: Cancer Review of Systems General: Denies: Chills, Fever Eyes: Reports: - - Brief vision change in left eye, now resolved ENT: Denies: Bilateral ear pain Cardiovascular: Reports: - - Cold chill across the chest.. Denies: Chest pain Respiratory: Denies: Dyspnea, Cough Gastrointestinal: Denies: Abdominal pain, Nausea, Vomiting Neurological: Reports: Headache - Sharp pain around left scalp., Parasthesia. Denies: Weakness Endocrine: Denies: Polyuria, Polydipsia Hematologic: Denies: Easy bruising Allergy: Denies: Uticaria Physical Exam Vital Signs/Narrative: Vital Signs Temp Pulse Resp BP Pulse Ox 10/23/18 21:42 96.5 F L 70 16 160/75 H 97 Inital Vital Signs reviewed: Yes General: Well nourished, Well developed Head: Normocephalic Eyes: Perrl, EOMI ENT: Moist mucous membranes, Dry mucous membranes Neck: Supple, - - No C-spine tenderness. Cardiovascular: Regular rate, Regular rhythm Respiratory: No distress, CTA bilaterally Abdomen: Soft, Nontender Extremities: Nontender Skin: Normal color, No rash Neurological: Alert, Oriented x3, Normal Strength Psychological: Normal affect Diagnostic/Tx/Re-eval Impressions Brain CT 10/23/18 21:53 IMPRESSION: No acute intracranial pathology. If symptoms persist consider mri for further evaluation if clinically indicated. Individualized dose optimization techniques were used for this CT. at 2239 Reported and signed by: Alycia Zapata DO Electronically Signed: Alycia Zapata DO at 22:38 EDT Tel , Service support , Chest X-Ray 10/23/18 21:55 IMPRESSION: No radiographic evidence of acute cardiopulmonary disease. at 2206 Reported and signed by: Alycia Zapata DO Electronically Signed: Alycia Zapata DO at 22:05 EDT Tel , Service support , 10/23/18 21:53 Brain/Head without Contrast [CT] Stat 10/23/18 21:55 Chest 1 View (Portable) [RAD] Stat Laboratory Results 10/23/18 10/23/18 22:05 22:05 WBC 4.1 L RBC 3.63 L Hgb 10.6 L Hct 30.1 L MCV 82.9 MCH 29.2 MCHC 35.2 RDW Std Deviation 37.1 RDW Coeff of Pennie 12.1 Plt Count 230 MPV 8.8 Immature Gran % (Auto) 0.200 Neut % (Auto) 62.7 Lymph % (Auto) 24.9 [place] % (Auto) 10.7 H Eos % (Auto) 1.0 Baso % (Auto) 0.5 Absolute Neuts (auto) 2.6 Absolute Lymphs (auto) 1.03 Nucleated RBC % 0 Sodium 129 L Potassium 3.4 L Chloride 95 L Carbon Dioxide 30.0 Anion Gap 4 L BUN 13 Creatinine 0.93 Estim Creat Clear Calc 54.35 Est GFR (MDRD) Af Amer 76 Est GFR (MDRD) Non-Af 63 BUN/Creatinine Ratio 14.0 Glucose 97 Calcium 8.6 Troponin I < 0.015 - EKG Initial EKG Interpretation: Sinus Rhythm - Sinus at 63 with first-degree AV block. No acute ST change. - Medical Decision Making Patient presents with atypical symptoms. CT head is unremarkable. Blood work reveals mild hyponatremia and hypokalemia, likely secondary to recent increase in her hydrochlorothiazide component of losartan. Patient be given a 500 cc fluid bolus and given potassium replacement. She has had no further symptoms here. Blood pressure is currently 125/65. Patient will follow up with PCP for repeat labs. ED Disposition - Plan for ED Patient: Disposition: Home or Assisted Living Diagnosis: Cephalgia, Hyponatremia, Hypokalemia Instructions: Potassium, Hyponatremia Prescriptions: Potassium Chloride [K-Dur] 20 meq PO BID #6 tablet Referrals: Estrellita Cortez, KEYANA-C [Primary Care Provider] - 5-7 Days
--- NOTE | 2018-10-23 21:55 | RAD_ITS ---
HISTORY:C/O HURT, HYPERTENSION WITH CHANGES IN MEDICATION OVER TWO WEEKS, COLD SENSATION DOWN CHEST, TINGLING IN FEET C/O HURT, HYPERTENSION WITH CHANGES IN MEDICATION OVER TWO WEEKS, COLD SENSATION DOWN CHEST, TINGLING IN FEET EXAM: XR Chest 1 View: COMPARISON: November 01, 2017 FINDINGS: # of images incl. paperwork: 1 LINES/DEVICES: None. LUNGS: Radiographically clear. No consolidation, edema or effusion. No pneumothorax. MEDIASTINUM AND CARDIOVASCULAR STRUCTURES: Cardiac silhouette not enlarged. BONES AND SOFT TISSUES: Unremarkable. RAD/Chest 1 View (Portable) IMPRESSION: No radiographic evidence of acute cardiopulmonary disease. at 2206 Reported and signed by: Alycia Zapata DO Electronically Signed: Alycia Zapata DO at 22:05 EDT Tel , Service support ,
[2018-10-23 22:09] VITALS: BP 146/78; PULSE 62; RESP 13; O2SAT 97
[2018-10-23 22:17] LABS: Absolute Lymphocyte Count 1.03 X10^3/uL (0.83-4.51); Absolute Neutrophil Count 2.6 X10^3/uL (2.0-7.7); Basophil# 0.02 X10^3/uL; Basophil% 0.5 % (0-1); Eosinophil# 0.04 X10^3/uL; Hematocrit 30.1 % (37-47); Hemoglobin 10.6 g/dL (12.0-15.0); Lymphocyte # 1.03 X10^3/ul (4.0); Lymphocyte % 24.9 % (19-41); Mean Corp Hgb Conc 35.2 g/dL (32-36); Mean Corpuscular Hgb 29.2 pg (27.0-32.0); Mean Corpuscular Volume 82.9 fL (81-99); Mean Platelet Vol. 8.8 fl (6.2-12.0); Monocyte# 0.44 X10^3/uL; Monocyte% 10.7 % (0-10); NRBC Flagged by Analyzer 0 % (0-5); Neutrophil # 2.59 X10^3/uL (2.7-7.7); Neutrophil % 62.7 % (47-70); Platelet Count 230 K/mm3 (150-450); RBC Distribution Width CV 12.1 % (11.6-14.6); RBC Distribution Width SD 37.1 fl (35.1-43.9); Red Blood Count 3.63 M/mm3 (4.2-5.4); White Blood Count 4.1 K/mm3 (4.4-11.0)
[2018-10-23 22:36] LABS: Anion Gap 4 (5-15); BUN 13 mg/dL (7-18); Calcium,Total 8.6 mg/dL (8.5-10.1); Chloride 95 mmol/L (98-107); Creatinine, Serum 0.93 mg/dL (0.55-1.02); EST Glomerular Filtration Rate 63 mL/min (>60); Est Glom Filt Rate - Afr Amer 76 mL/min (>60); Estimated Creatinine Clearance 54.35 ml/min; Glucose 97 mg/dL (74-106); Potassium 3.4 mmol/L (3.5-5.1); Sodium Level 129 mmol/L (136-145)
[2018-10-23 22:43] VITALS: BP 125/65; PULSE 60; RESP 12; O2SAT 95
[2018-10-23 23:38] VITALS: BP 151/72; PULSE 56; RESP 16; O2SAT 96
== END 2018-10-23 23:38 | disposition home or self-care (01) ==
PROVIDERS: Emergency Provider Emergency Medicine; Family Provider Nurse Practitioner; PCP Nurse Practitioner
DX: R51 Headache (principal); E87.1 Hypo-osmolality and hyponatremia; E87.6 Hypokalemia; R20.2 Paresthesia of skin; I10 Essential (primary) hypertension; I44.0 Atrioventricular block, first degree; Z79.82 Long term (current) use of aspirin; Z79.899 Other long term (current) drug therapy
CPT/HCPCS: 70450; 71045; 80048; 84484; 85025; 93005; 96360; 99285; J7040; A4216

== ENCOUNTER → 2018-10-29 16:17 | Outpatient (CLI) | payer MEDICARE, SELFPAY ==
[2018-10-23 21:42] VITALS: BMI 30.2
[2018-10-29 17:09] LABS: ALB/GLOB Ratio 0.9 RATIO (0.9-2.4); AST(SGOT) 21 U/L (15-37); Alanine Aminotransfer ALT/SGPT 19 U/L (13-56); Albumin, Serum 3.5 g/dL (3.2-5.0); Alkaline Phosphatase 124 U/L (45-117); Anion Gap 9 (5-15); BUN 10 mg/dL (7-18); BUN/Creat Ratio 13.7 RATIO (10-20); Calcium,Total 9.2 mg/dL (8.5-10.1); Chloride 93 mmol/L (98-107); Creatinine, Serum 0.73 mg/dL (0.55-1.02); EST Glomerular Filtration Rate 83 mL/min (>60); Est Glom Filt Rate - Afr Amer 101 mL/min (>60); Globulin 3.9 g/dL (2.2-4.2); Glucose 100 mg/dL (74-106); Potassium 3.7 mmol/L (3.5-5.1); Protein, Total 7.4 g/dL (6.4-8.2); Sodium Level 131 mmol/L (136-145)
== END ==
PROVIDERS: Family Provider Nurse Practitioner; PCP Nurse Practitioner; Referring Provider Nurse Practitioner; Visit Provider Nurse Practitioner
DX: I10 Essential (primary) hypertension (principal); R56.9 Unspecified convulsions
CPT/HCPCS: 36415; 80053; 80156

== ENCOUNTER → 2019-02-07 07:43 | Outpatient (CLI) | payer MEDICARE, SELFPAY ==
[2019-02-07 08:11] LABS: Absolute Lymphocyte Count 0.96 X10^3/uL (0.83-4.51); Absolute Neutrophil Count 2.5 X10^3/uL (2.0-7.7); Basophil# 0.01 X10^3/uL; Basophil% 0.3 % (0-1); Eosinophil# 0.04 X10^3/uL; Hematocrit 31.7 % (37-47); Hemoglobin 10.4 g/dL (12.0-15.0); Lymphocyte # 0.96 X10^3/ul (4.0); Lymphocyte % 24.8 % (19-41); Mean Corp Hgb Conc 32.8 g/dL (32-36); Mean Corpuscular Volume 85.2 fL (81-99); Mean Platelet Vol. 9.1 fl (6.2-12.0); Monocyte# 0.34 X10^3/uL; Monocyte% 8.8 % (0-10); NRBC Flagged by Analyzer 0 % (0-5); Neutrophil # 2.51 X10^3/uL (2.7-7.7); Neutrophil % 64.8 % (47-70); Platelet Count 238 K/mm3 (150-450); RBC Distribution Width CV 12.3 % (11.6-14.6); Red Blood Count 3.72 M/mm3 (4.2-5.4); White Blood Count 3.9 K/mm3 (4.4-11.0)
[2019-02-07 08:43] LABS: ALB/GLOB Ratio 0.9 RATIO (0.9-2.4); AST(SGOT) 14 U/L (15-37); Alanine Aminotransfer ALT/SGPT 14 U/L (13-56); Albumin, Serum 3.1 g/dL (3.2-5.0); Alkaline Phosphatase 113 U/L (45-117); Anion Gap 2 (5-15); BUN 15 mg/dL (7-18); BUN/Creat Ratio 22.8 RATIO (10-20); Calcium,Total 8.7 mg/dL (8.5-10.1); Chloride 104 mmol/L (98-107); Creatinine, Serum 0.66 mg/dL (0.55-1.02); EST Glomerular Filtration Rate 94 mL/min (>60); Est Glom Filt Rate - Afr Amer 113 mL/min (>60); Globulin 3.5 g/dL (2.2-4.2); Glucose 75 mg/dL (74-106); Potassium 3.9 mmol/L (3.5-5.1); Protein, Total 6.6 g/dL (6.4-8.2); Sodium Level 136 mmol/L (136-145)
== END ==
PROVIDERS: Family Provider Nurse Practitioner; PCP Nurse Practitioner; Referring Provider Internal Medicine Rheumatology; Visit Provider Internal Medicine Rheumatology
DX: M05.70 Rheumatoid arthritis with rheumatoid factor of unspecified site without organ or systems involvement (principal); M35.00 Sjogren syndrome, unspecified; M65.331 Trigger finger, right middle finger; M65.332 Trigger finger, left middle finger; I10 Essential (primary) hypertension; G40.802 Other epilepsy, not intractable, without status epilepticus
CPT/HCPCS: 36415; 80053; 85025

== ENCOUNTER 2019-03-23 19:48 | Observation (INO) | payer MEDICARE, SELFPAY ==
[2019-03-23 19:49] VITALS: BP 155/91; BP 178/58; PULSE 60; PULSE 70; RESP 15; RESP 16; TEMP 36.6; O2SAT 98; O2SAT 99; BMI 30.8
[2019-03-23 20:27] VITALS: BP 171/52; BP 178/58; BP 201/74; PULSE 60; PULSE 62; PULSE 71
--- NOTE | 2019-03-23 20:27 | EKG12_ITS ---
Test Reason : HTN Blood Pressure : / mmHG Vent. Rate : 061 BPM Atrial Rate : 061 BPM P-R Int : 218 ms QRS Dur : 104 ms QT Int : 446 ms P-R-T Axes : 073 -02 009 degrees QTc Int : 448 ms Sinus rhythm with 1st degree A-V block Otherwise normal ECG Confirmed by YOGESH NGUYEN, VITALY ([id number]), editor greeting card VIRIDIANA COREA ([id number]) on 03/26/2019 11:21:34 AM Referred By: ROSETTA Confirmed By:VITALY ZUÑIGA MD
--- NOTE | 2019-03-23 20:27 | CT_ITS ---
STUDY: CT BRAIN WITHOUT CONTRAST REASON FOR EXAM: Female, 73 years old. Dizziness, elevated BP -- HX:HTN,SEIZURES-ON Meds, prior MASTOID SURGERY RADIATION DOSAGE (If Supplied By Facility): CTDIvol = ( 44.99 ) mGy, DLP = ( 863.60 ) mGycm TECHNIQUE: Transaxial CT imaging of the brain was performed without administration of intravenous contrast material. Individualized dose optimization techniques were used for this CT. COMPARISON: 10/23/2018. FINDINGS: Normal soft tissue structures. Normal calvarium. Normal size ventricles and extra-axial spaces for the patient''s age. There are areas of decreased attenuation within the white matter tracts of the supratentorial brain, consistent with microvascular disease changes. There is no intracranial hemorrhage. There are no findings of an acute ischemic infarction. Moderate mucosal thickening in the maxillary sinuses bilaterally. Status post left mastoidectomy. Mastoidectomy site contains soft tissue density. No change from the prior study. CT/Brain/Head without Contrast IMPRESSION: 1. No acute intracranial abnormality. 2. Mild microvascular ischemic changes. 3. Chronic sinusitis. Electronically Signed: Kathie Chamberlain MD at 22:30 EST Tel , Service support ,
[2019-03-23] MEDS: 0.9% Normal Saline 1,000 ML 150 ML IV (21:14)
[2019-03-23] MEDS: Meclizine HCl 25 MG Tablet PO (21:14)
[2019-03-23 21:48] LABS: Absolute Lymphocyte Count 0.96 X10^3/uL (0.83-4.51); Absolute Neutrophil Count 4.2 X10^3/uL (2.0-7.7); Anion Gap 5 (5-15); BUN 17 mg/dL (7-18); BUN/Creat Ratio 23.8 RATIO (10-20); Basophil# 0.03 X10^3/uL; Basophil% 0.5 % (0-1); Chloride 105 mmol/L (98-107); Creatinine, Serum 0.71 mg/dL (0.55-1.02); EST Glomerular Filtration Rate 85 mL/min (>60); Eosinophil# 0.05 X10^3/uL; Eosinophils% 0.9 % (0-5); Est Glom Filt Rate - Afr Amer 103 mL/min (>60); Estimated Creatinine Clearance 48.72 ml/min; Glucose 99 mg/dL (74-106); Hematocrit 33.2 % (37-47); Hemoglobin 10.7 g/dL (12.0-15.0); Lymphocyte # 0.96 X10^3/ul (4.0); Lymphocyte % 17.1 % (19-41); Mean Corp Hgb Conc 32.2 g/dL (32-36); Mean Corpuscular Volume 83.8 fL (81-99); Mean Platelet Vol. 9.4 fl (6.2-12.0); Monocyte# 0.38 X10^3/uL; Monocyte% 6.8 % (0-10); NRBC Flagged by Analyzer 0 % (0-5); Neutrophil # 4.17 X10^3/uL (2.7-7.7); Neutrophil % 74.3 % (47-70); Platelet Count 225 K/mm3 (150-450); Potassium 3.7 mmol/L (3.5-5.1); RBC Distribution Width CV 12.7 % (11.6-14.6); RBC Distribution Width SD 38.6 fl (35.1-43.9); Red Blood Count 3.96 M/mm3 (4.2-5.4); Sodium Level 138 mmol/L (136-145); White Blood Count 5.6 K/mm3 (4.4-11.0)
--- NOTE | 2019-03-23 22:09 | ED.VISSUMM ---
- ER Visit Summary Date of Service: 03/23/19 Chief Complaint: [Dizziness and hypertension] History of Present Illness: The patient is a 73 F [to the emergency department complaining of feeling dizzy today that started around 5 PM. Patient states that she felt very lightheaded with turning of her head and felt off balance. Patient states that she try to walk and started stumbling. Patient then began feeling hot and nauseated. Patient checked her blood pressure and it was 200/100. Patient denies any headache. She denies any falls or head injuries. She denies recent illness. Patient has had vertigo in the past initially felt like this might be different. Patient has a history of hypertension, high cholesterol, rheumatoid arthritis, and epilepsy.] Physical Examination: [HEENT-PERRLA, EOMI. Cranial nerves II through XII grossly intact. TMs clear. Mucous membranes moist. No adenopathy. Cardiovascular-regular rate and rhythm without murmur or ectopy Lungs-clear to auscultation, chest wall stable without crepitus or subcu emphysema Abdomen-normoactive bowel sounds, soft, nontender, no rebound or rigidity, no peritoneal signs. Neuro dehw-blwwua-dwag and heel curiel testing within normal limits, negative Romberg, negative , Fundi benign. Chambers Bacon maneuver performed and I was not able to elicit any nystagmus and patient was not really symptomatic. Extremities-intact ?4, normal range of motion, normal pulses, atraumatic] Test Results: [EKG obtained arrival shows sinus rhythm with a ventricular rate of 61 bpm with first-degree AV block. CBC with differential showing a 5.6, hemoglobin 10.7, hematocrit 33, placed 223. Chemistries unremarkable. Troponin is less than 0.015. Orthostatic vital signs were negative.] Urinalysis was unremarkable. CT scan of the brain without contrast showed mild microvascular ischemic changes. Emergency Department Course and Treatment: [Patient had an IV line established. She was placed on senior regulatory affairs specialist. Patient was medicated with Antivert 25 mg IV. She continued complaint of dizziness with standing she was given Ativan 0.5 mg IV. Patient still feels off balance] Treatment Plan: [Admit] Disposition: [Admit] Impression: [Dizziness-suspect benign positional vertigo] This note was generated with [employer] software. It may contain incorrect words, spelling, and punctuation that were not noted in review of the chart prior to signing ED Disposition - Plan for ED Patient: Referrals: Estrellita Cortez, EXECUTIVE TEAM LEADER-C [Primary Care Provider] -
[2019-03-23 22:19] LABS: Bacteria 0 SEEN /hpf (None Seen); Mucous, Urine 0 SEEN /hpf (<or=2+); Red Blood Cells-Urine 0 SEEN /hpf (0-5)
[2019-03-23 22:21] LABS: Color, Urine Yellow (Yellow); Glucose, Dipstick Normal (Normal); Ketone-Dipstick Negative (Negative); Leukocyte Esterase-Dipstick 100 /ul (Negative); Nitrite-Dipstick Negative (Negative); Occult Blood-Urine Negative /ul (Negative); Protein-Dipstick Negative (Negative); Specific Gravity, Urine 1.015 (1.002-1.030); Urine Bilirubin Dipstick Negative (Negative); Urine Clarity Sl. Cloudy (Clear); Urine Urobilinogen Normal (Normal)
[2019-03-23 22:28] LABS: Squamous Epithelial Cells - UA 0-5 SEEN /hpf (5-10); White Blood Cells 5-10 SEEN /hpf (0-5)
--- NOTE | 2019-03-23 23:04 | HP.PCM_ITS ---
Problem List (1) Vertigo Status: Acute (2) Anemia Status: Chronic Qualifiers: Anemia type: unspecified type Qualified Code(s): D64.9 - Anemia, unspecified (3) Rheumatoid arthritis Status: Chronic Qualifiers: Rheumatoid arthritis location: unspecified site Rheumatoid factor presence: unspecified presence Qualified Code(s): M06.9 - Rheumatoid arthritis, unspecified (4) Epilepsy Status: Chronic Qualifiers: Epilepsy type: unspecified Intractability: not intractable Status epilepticus: without status epilepticus Qualified Code(s): G40.909 - Epilepsy, unspecified, not intractable, without status epilepticus (5) Hyperlipidemia Status: Chronic Qualifiers: Hyperlipidemia type: pure hypercholesterolemia Qualified Code(s): E78.00 - Pure hypercholesterolemia, unspecified; E78.0 - Pure hypercholesterolemia (6) Hypertension Status: Chronic Qualifiers: Hypertension type: essential hypertension Qualified Code(s): I10 - Essential (primary) hypertension History of Present Illness Date of Admission: 03/23/19 Chief Complaint: Dizziness The patient is a 73 y/o F w/ PMHx: Chronic normocytic anemia, Anxiety and Depression, Seizure disorder, HTN, HLD, Rheumatoid Arthritis, Obesity who presents to the [facility] ED on 03/23/19 with history of onset at ~ 5 pm, turned her head and had sudden onset dizziness, notes felt off balance, notes different than her prior vertigo, worse with attempted walking, nauseated without emesis with SBP 200 upon home evaluation of BP. In the ED no nystagmus reproduced on DHM attempts. Patient noted ongoing dizziness w/ meclizine and valium but improved since initial presentation. Work-up in the ED included T 97.9, heart rate 70, BP 155/91 with negative orthostatics however patient did have notable change from laying to sitting, respiratory rate 16, 99% on room air, CBC with WBC 5.6, hemoglobin 10.7, platelet 225 without market shift, BMP unremarkable, troponin less than 0.015, urinalysis with cloudy appearance, specific gravity mildly elevated 1.015, negative nitrite, 100 leukocyte esterase, WBC 5-10, no urine bacteria identified, pending carbamazepine level, CT head with no acute intracranial findings, mild microvascular ischemic changes as well as chronic sinusitis, EKG was sinus rhythm with first-degree AV block with no acute evidence of ischemia. Past Medical History Past Medical History (Chronic Problems): Chronic Problems Leukopenia (Chronic) Anemia (Chronic) Pancytopenia (Chronic) Rheumatoid arthritis (Chronic) Epilepsy (Chronic) Hyperlipidemia (Chronic) Hypertension (Chronic) Allergies No Known Allergies Allergy (Verified 03/23/19 19:49) Home Medications: Ambulatory Orders Medication Instructions Recorded Aspirin [Aspirin, Baby] 81 mg PO DAILY@0800 03/25/13 Citalopram [Celexa] 20 mg PO DAILY 03/25/13 Hydroxychloroquine [Plaquenil] 200 mg PO BID 03/25/13 Triamcinolone Acetonide [Nasacort 1 spray NASAL DAILY PRN 03/25/13 Aq Nasal [place]] Tegretol Xr 400 mg PO BID 03/26/13 Amlodipine Besylate 10 mg PO DAILY 10/23/18 Losartan/Hydrochlorothiazide 100 mg PO DAILY 10/23/18 [Losartan-Hctz 100-25 mg Tab] Surgical History: - - C-sestion x 3, Cholecystectomy, Mastoid surgery, Ear Tubes, T+A. Psychiatric History: Depression INFECTION CONTROL RN History: No pertinent INFECTION CONTROL RN history Lives: Spouse/ Significant Other Smoking Status: Never smoker Tobacco Use: Non-smoker Alcohol: None Drugs: None - *Family History Maternal History Items: Cancer, Heart Disease Paternal History Items: Cancer Review of Systems Constitutional: Reports: Malaise, Weakness, Fatigue. Denies: Anorexia, Chills, Fever, Weight Change HEENT: Denies: Head Aches, Sinus Congestion, Sinus Drainage Cardiovascular: Denies: Chest Pain, Palpitations Respiratory: Denies: Cough, Shortness of breath at rest, Sputum production Gastrointestinal: Reports: Nausea. Denies: Abdominal Pain, Vomiting Genitourinary: Denies: Dysuria Musculoskeletal: Denies: Joint Pain, Joint Tenderness Skin: Denies: Rash, Wounds Neurological: Reports: - - Vertiginous symptoms.. Denies: Focal weakness, Numbness, Tingling Psychiatric: Reports: Anxiety, Depression. Denies: Homicidal Ideations, Suicidal Ideations Hematologic/ Lymphatic: Reports: Anemia. Denies: Easy Bruising, Easy Bleeding VTE Information - Inpt Only VTE Present on Admission: No VTE Mechan Device Prophylaxis: SCD's VTE Pharm Prophylaxis ordered?: Yes Patient Problems: Active and Suspected Problems Vertigo (Acute) Subjective: Seated upright in ED bed, fatigued appearance, notes feeling improved since ED regimen. Objective: Physical Examination: General: awake, alert, oriented x 3 and cooperative, seated upright in the ED bed, improved appearance, fatigued. Skin: normal color, turgor, no icterus, cyanosis. HEENT: AT/NC, EOMI, PERRLA, mildly dry MM, no carotid bruits or JVD noted. Lungs: CTA bilaterally, moderate effort, mild decrease BL bases, no rales, ronchi or wheezing. Heart: Regular rate and rhythm; no gallop, rub audible. Abdomen: soft, obese, NTTP, ND, normal BS, no HSM. Extremities: no cyanosis, clubbing, or edema. Neurological: patient awake, alert, oriented x 3; cognitive function intact; pupils equally reactive to light and accomodation; cranial nerves II-XII grossly normal, moving all 4 extremities, no focal deficits, strength moderately global decrease secondary to acute presentation, no market nystagmus but able to track now with no recurrent onset vertiginous symptoms, notes more pronounced when she attempts to get up. Psychiatric: affect appears fatigued, no acute evidence of depressive or anxiety feelings. - Physical Exam Vitals/I&O's: Vital Signs Temp Pulse Resp BP Pulse Ox 97.9 F 62 15 171/52 H 98 03/23/19 19:49 03/23/19 20:27 03/23/19 19:49 03/23/19 20:27 03/23/19 19:49 Oxygen Delivery Method Room Air Weight: 197 lb Body Mass Index (BMI) 30.8 Laboratory Results 03/23/19 21:05: WBC 5.6, RBC 3.96 L, Hgb 10.7 L, Hct 33.2 L, MCV 83.8, MCH 27.0, MCHC 32.2, RDW Std Deviation 38.6, RDW Coeff of Pennie 12.7, Plt Count 225, MPV 9.4, Immature Gran % (Auto) 0.400, Neut % (Auto) 74.3 H, Lymph % (Auto) 17.1 L, [place] % (Auto) 6.8, Eos % (Auto) 0.9, Baso % (Auto) 0.5, Absolute Neuts (auto) 4.2, Absolute Lymphs (auto) 0.96, Nucleated RBC % 0 03/23/19 21:05: Sodium 138, Potassium 3.7, Chloride 105, Carbon Dioxide 28.0, An ion Gap 5, BUN 17, Creatinine 0.71, Estim Creat Clear Calc 48.72, Est GFR (MDRD) Af Amer 103, Est GFR (MDRD) Non-Af 85, BUN/Creatinine Ratio 23.8 H, Glucose 99, Calcium 9.0, Troponin I < 0.015 03/23/19 22:13: Urine Color Yellow, Urine Clarity Sl. Cloudy, Urine pH 6.0, Ur Specific [place] 1.015, Urine Protein Negative, Urine Glucose (UA) Normal, Urine Ketones Negative, Urine Occult Blood Negative, Urine Nitrite Negative, Urine Bilirubin Negative, Urine Urobilinogen Normal, Ur Leukocyte Esterase 100 H, Urine RBC 0 SEEN, Urine WBC 5-10 SEEN, Ur Squamous Epith Cells 0-5 SEEN, Urine Bacteria 0 SEEN, Urine Mucus 0 SEEN 03/23/19 22:48: Carbamazepine Pending Current Medications Sodium Chloride () 1,000 mls @ 150 mls/hr IV .Q6H40M [facility] Last Admin: 03/23/19 21:14 Dose: 150 mls/hr Documented by: Assessment/Plan All Active Problems Vertigo (Acute) Chest pain (Acute) Flu-like symptoms (Acute) Neutropenic fever (Acute) The patient is a 73 y/o F w/ PMHx: Chronic normocytic anemia, Anxiety and Depression, Seizure disorder, HTN, HLD, Rheumatoid Arthritis, Obesity who presents to the [facility] ED on 03/23/19 with history of onset at ~ 5 pm, turned her head and had sudden onset dizziness, notes felt off balance, notes different than her prior vertigo, worse with attempted walking, nauseated without emesis with SBP 200 upon home evaluation of BP. 1. Lightheadedness, dizziness, unclear etiology, ? BPPV w/ Hx prior: EKG in ED w/ sinus rhythm without evidence of acute ischemia, CT not marked, initial trop normal. Will admit to [facility] given more suspicious for BPPV, maintain on fall precautions, continue treatment with scheduled meclizine, PRN zofran, IVFs, PT/OT consultation to ascertain stability and discharge needs. If ongoing vertiginous symptoms may need to consider in AM MRI Brain if improvement does not continue. Concurrently, may also consider carotid ultrasound. As noted carbamazepine level pending, if supratherapeutic may be contributing and will alter or hold regimen as needed. 2. Anxiety and depression: We will continue patient home citalopram regimen. 3. Hypertension: She notes that previously had been well controlled however over the last month it has been labile as she had been having issues with electrolytes and her primary care physician had discontinued hydrochlorothiazide but upon repeat BP check she had elevated blood pressure with recent now addition of Norvasc. Continue home regimen including losartan, Norvasc, PRN hydralazine. 4. Hyperlipidemia: Not on agent per current list, clarifying, will defer to outpatient. 5. Seizure disorder: We will continue patient home Tegretol once level obtained. 6. Rheumatoid arthritis: We will continue patient home Plaquenil regimen. 7. Chronic normocytic anemia: Admission hemoglobin 10.7, baseline appears 10- 11, stable, trend. 8. DVT prophylaxis: DVT, Lovenox. Code Visit OBSV E&M: 08664 Initial observation care L3
[2019-03-23 23:10] VITALS: PULSE 60; RESP 15; O2SAT 98
[2019-03-23] MEDS: LORazepam 2 MG/ML Syringe 0.5 MG IV (23:25)
[2019-03-23 23:27] VITALS: BP 166/48; PULSE 60; RESP 18; O2SAT 94
[2019-03-23 23:36] LABS: Carbamazepine (Tegretol) 12.5 ug/mL (4.0-12.0)
[2019-03-24 00:20] VITALS: BMI 31.0
[2019-03-24 00:21] VITALS: BP 159/55; PULSE 54; RESP 14; TEMP 36.4; O2SAT 98
[2019-03-24 00:28] VITALS: BMI 31.0
[2019-03-24 00:48] LABS: Magnesium 2.3 mg/dL (1.6-2.6)
[2019-03-24] MEDS: 0.9% Normal Saline 1,000 ML 100 ML IV ×2 (04:25→15:20)
[2019-03-24] MEDS: Meclizine 12.5 MG Tablet PO (05:45)
[2019-03-24 05:47] VITALS: BP 130/60; PULSE 56; RESP 16; TEMP 36.6; O2SAT 96
[2019-03-24 06:03] VITALS: RESP 18; O2SAT 96
[2019-03-24 07:01] LABS: Absolute Lymphocyte Count 0.87 X10^3/uL (0.83-4.51); Absolute Neutrophil Count 1.6 X10^3/uL (2.0-7.7); Basophil# 0.01 X10^3/uL; Basophil% 0.4 % (0-1); Eosinophil# 0.04 X10^3/uL; Eosinophils% 1.5 % (0-5); Hematocrit 26.3 % (37-47); Hemoglobin 8.5 g/dL (12.0-15.0); Lymphocyte # 0.87 X10^3/ul (4.0); Lymphocyte % 31.6 % (19-41); Mean Corp Hgb Conc 32.3 g/dL (32-36); Mean Corpuscular Hgb 26.8 pg (27.0-32.0); Mean Platelet Vol. 9.5 fl (6.2-12.0); Monocyte# 0.27 X10^3/uL; Monocyte% 9.8 % (0-10); NRBC Flagged by Analyzer 0 % (0-5); Neutrophil # 1.55 X10^3/uL (2.7-7.7); Neutrophil % 56.3 % (47-70); Platelet Count 198 K/mm3 (150-450); RBC Distribution Width CV 12.8 % (11.6-14.6); RBC Distribution Width SD 39.1 fl (35.1-43.9); Red Blood Count 3.17 M/mm3 (4.2-5.4); White Blood Count 2.8 K/mm3 (4.4-11.0)
[2019-03-24 07:13] LABS: Anion Gap 5 (5-15); BUN 14 mg/dL (7-18); BUN/Creat Ratio 25.2 RATIO (10-20); Calcium,Total 8.5 mg/dL (8.5-10.1); Chloride 110 mmol/L (98-107); Creatinine, Serum 0.56 mg/dL (0.55-1.02); EST Glomerular Filtration Rate 114 mL/min (>60); Est Glom Filt Rate - Afr Amer 138 mL/min (>60); Estimated Creatinine Clearance 48.72 ml/min; Glucose 86 mg/dL (74-106); Potassium 3.7 mmol/L (3.5-5.1); Sodium Level 142 mmol/L (136-145)
[2019-03-24 07:30] VITALS: O2SAT 95
[2019-03-24 09:50] VITALS: BP 148/62; PULSE 58; RESP 14; TEMP 36.4; O2SAT 95
[2019-03-24] MEDS: amLODIPine 10 MG Tablet PO (09:54)
[2019-03-24] MEDS: Losartan Potassium 100 MG Tablet PO (09:54)
[2019-03-24] MEDS: Aspirin 81 MG TAB.CHEW PO (09:55)
[2019-03-24] MEDS: Hydroxychloroquine 200 MG Tablet PO (09:55)
[2019-03-24] MEDS: Enoxaparin 40 MG/0.4 ML Syringe SC (09:55)
[2019-03-24] MEDS: Famotidine 20 MG Tablet PO (09:55)
[2019-03-24] MEDS: Citalopram 20 MG Tablet PO (09:55)
[2019-03-24 12:58] LABS: Ferritin 17 ng/mL (8-252); Iron 43 ug/dL (50-170); Iron Binding Capacity,Total 227 ug/dL (250-450); PERCENT IRON SATURATION 18.9 % (15.0-55.0)
--- NOTE | 2019-03-24 13:01 | MRI_ITS ---
STUDY: MRI BRAIN WITHOUT CONTRAST REASON FOR EXAM: Female, 73 years old. vertigo, lightheadedness since Monday. Hx of mastoid surgery TECHNIQUE: Standardized multiplanar fat and water weighted pulse sequences were obtained. COMPARISON: CT brain March 23, 2019 FINDINGS: There is mild cerebral atrophy with widening of the extra-axial spaces and ventricular dilatation. Normal white matter tracts of the supratentorial brain. There is no evidence for recent intracranial ischemia or other cause of cytotoxic edema on diffusion weighted imaging (DWI). There are prominent perivascular spaces (PVS) involving the basal ganglia. Normal thalami. There is no extra-axial fluid accumulation. Normal flow voids within the major intracranial circulation suggesting patency by spin echo criteria. Normal sella turcica, pituitary gland, infundibular stalk, optic chiasm and hypothalamus. Normal tectal plate and pineal gland. Normal midbrain, chato and medulla. Normal cerebellum. Normal basal cisterns. There is moderate chronic otomastoiditis of the bilateral temporal bones. Normal bilateral internal auditory canals. No demonstrated orbital abnormality, within the constraints of a routine brain study. There is mucoperiosteal inflammatory disease of the paranasal sinuses consistent with moderate chronic sinusitis. Normal calvarium and skull base. Normal visualized soft tissue structures. Normal visualized upper cervical spine. MRI/Brain without Contrast IMPRESSION: No acute disease. Bilateral sinus disease and mastoid effusions. Electronically Signed: Jaden Sanders MD at 16:29 EST , Service support ,
--- NOTE | 2019-03-24 13:52 | NURSING ---
pt transported off unit for MRI at this time via wheelchair
[2019-03-24 15:15] VITALS: BP 151/72; PULSE 55; RESP 16; TEMP 36.4; O2SAT 98
[2019-03-24] MEDS: 0.9% Saline Lock 10 ML Syringe IV (15:21)
--- NOTE | 2019-03-24 16:45 | PCM.DC ---
- Discharge Diagnoses Current Active Problems: Current Active and Chronic Problems Vertigo (Acute) You will use the following diet at home:: No restrictions Your food should be the consistency of: Regular Your liquids should be the consistency of: Regular/Thin Discharge Activity: Return to Normal Activity Weight Bearing Status: Full weight bearing Additional Instructions: Take ferrous sulfate 325 mg twice daily Allergies/Adverse Reactions: Allergies No Known Allergies Allergy (Verified 03/24/19 00:35) Medications to take at Discharge Citalopram [Celexa] 20 mg PO DAILY 03/25/13 Hydroxychloroquine [Plaquenil] 200 mg PO BID 03/25/13 Triamcinolone Acetonide [Nasacort Aq Nasal [place]] 1 spray NASAL DAILY PRN 03/25/13 Tegretol Xr 400 mg PO BID 03/26/13 Amlodipine Besylate 10 mg PO DAILY 10/23/18 Losartan Potassium [Cozaar] 100 mg PO DAILY tablet 03/24/19 Primary Care Physician: Estrellita Cortez NP-C [Primary Care Provider] - Please follow up with your Primary Care Physician in: Monday-get lab rechecked-cbc and tegretol level Test Results: Test results from this visit will be discussed in further detail at your follow-up appointment, if applicable.
--- NOTE | 2019-03-24 18:24 | DS.PCM_ITS ---
Discharge Date and Diagnosis Date of Admission: 03/23/19 Date of Discharge: 03/24/19 - Primary Discharge Diagnosis #1 lightheadedness-etiology unclear #2 iron deficiency anemia-chronic #3 seizure disorder #4 rheumatoid arthritis #5 essential hypertension - Secondary Discharge Diagnosis Chronic Problems Leukopenia (Chronic) Anemia (Chronic) Pancytopenia (Chronic) Rheumatoid arthritis (Chronic) Epilepsy (Chronic) Hyperlipidemia (Chronic) Hypertension (Chronic) Hospital Course and Treatment Imaging Results: 03/24/19 13:01 MRI Brain [Brain without Contrast] [MRI] Stat Operations: None Procedures: None Summary of Care Provided: The patient is a 73 year old F who was seen in the emergency room at [facility] with complaints of lightheadedness and feeling off balance. Patient stated that she had a difficult time walking and was stumbling. Patient also complained of feeling nauseated. Work-up in the emergency room included an EKG which showed a normal sinus rhythm 61 with a first-degree AV block, hemoglobin was 10.7, chemistries are unremarkable, orthostatic vital signs were unremarkable, urinalysis was unremarkable. CT of the brain without contrast showed no acute process. Patient was given IV Antivert but continues to complain of dizziness, she was also given IV Ativan but complained of feeling off balance, she was then placed into observation status on MedSurg 3, patient's symptoms improved, MRI of the brain was performed which showed no evidence of acute stroke. Patient's Tegretol level was slightly elevated-this examiner did not feel that the elevation was enough to explain the patient's feeling of lightheadedness. Patient's hemoglobin dropped during her hospitalization, I felt this was due in part to fluid administration, patient had a serum iron level performed which was low. On 03/24/2019, patient was seen and examined: On examination she appeared in good health and spirits. Vital signs as documented. Skin warm and dry and without overt rashes. Neck without JVD. Lungs clear. Heart exam notable for regular rhythm, normal sounds and absence of murmurs, rubs or gallops. Abdomen unremarkable and without evidence of organomegaly, masses, or abdominal aortic enlargement. Extremities nonedematous. Neuro: Cranial nerves II through XII are grossly intact, no focal motor deficits were noted, sensation to light touch and pinprick is intact. Psych: Patient is alert and oriented x3, she does not appear anxious or depressed Patient was instructed to follow-up with her physician in the next 48 hours to get a repeat CBC and Tegretol level, patient did not want to lower her dose of Tegretol as she had been at that same dose for quite a while. Patient was ins tructed to stop her aspirin usage which she was using for primary prevention of stroke. Patient appeared stable for discharge on 03/24/2019 and was discharged to home in stable condition. - Physical Exam Vitals/I&O's: Vital Signs Temp Pulse Resp BP Pulse Ox 97.6 F L 55 L 16 151/72 H 98 03/24/19 15:15 03/24/19 15:15 03/24/19 15:15 03/24/19 15:15 03/24/19 15:15 Oxygen Delivery Method Room Air Weight: 89.9 kg Body Mass Index (BMI) 31.0 Intake and Output for Last 24 Hours 03/22/19 03/23/19 03/24/19 23:59 23:59 23:59 Intake Total 2375 / 2375 Balance 2375 / 2375 Laboratory Results 03/23/19 21:05: WBC 5.6, RBC 3.96 L, Hgb 10.7 L, Hct 33.2 L, MCV 83.8, MCH 27.0, MCHC 32.2, RDW Std Deviation 38.6, RDW Coeff of [place]ie 12.7, Plt Count 225, MPV 9.4, Immature Gran % (Auto) 0.400, Neut % (Auto) 74.3 H, Lymph % (Auto) 17.1 L, [place] % (Auto) 6.8, Eos % (Auto) 0.9, Baso % (Auto) 0.5, Absolute Neuts (auto) 4.2, Absolute Lymphs (auto) 0.96, Nucleated RBC % 0 03/23/19 21:05: Sodium 138, Potassium 3.7, Chloride 105, Carbon Dioxide 28.0, Anion Gap 5, BUN 17, Creatinine 0.71, Estim Creat Clear Calc 48.72, Est GFR (MDRD) Af Amer 103, Est GFR (MDRD) Non-Af 85, BUN/Creatinine Ratio 23.8 H, Glucose 99, Calcium 9.0, Troponin I < 0.015 03/23/19 21:05: Magnesium 2.3 03/23/19 22:13: Urine Color Yellow, Urine Clarity Sl. Cloudy, Urine pH 6.0, Ur Specific [place] 1.015, Urine Protein Negative, Urine Glucose (UA) Normal, Urine Ketones Negative, Urine Occult Blood Negative, Urine Nitrite Negative, Urine Bilirubin Negative, Urine Urobilinogen Normal, Ur Leukocyte Esterase 100 H, Urine RBC 0 SEEN, Urine WBC 5-10 SEEN, Ur Squamous Epith Cells 0-5 SEEN, Urine Bacteria 0 SEEN, Urine Mucus 0 SEEN 03/23/19 22:48: Carbamazepine 12.5 H 03/24/19 05:25: WBC 2.8 L, RBC 3.17 L, Hgb 8.5 L, Hct 26.3 L, MCV 83.0, MCH 26.8 L, MCHC 32.3, RDW Std Deviation 39.1, RDW Coeff of [place] 12.8, Plt Count 198, MPV 9.5, Immature Gran % (Auto) 0.400, Neut % (Auto) 56.3, Lymph % (Auto) 31.6, [place] % (Auto) 9.8, Eos % (Auto) 1.5, Baso % (Auto) 0.4, Absolute Neuts (auto) 1.6 L, Absolute Lymphs (auto) 0.87, Nucleated RBC % 0 03/24/19 05:25: Sodium 142, Potassium 3.7, Chloride 110 H, Carbon Dioxide 27.0, Anion Gap 5, BUN 14, Creatinine 0.56, Estim Creat Clear Calc 48.72, Est GFR (MDRD) Af Amer 138, Est GFR (MDRD) Non-Af 114, BUN/Creatinine Ratio 25.2 H, Glucose 86, Calcium 8.5 03/24/19 05:25: Iron 43 L, TIBC 227 L, Iron Saturation 18.9, Ferritin 17 Discharge Activity: Return to Normal Activity Weight Bearing Status: Full weight bearing Home Medications: Medications to take at Discharge Citalopram [Celexa] 20 mg PO DAILY 03/25/13 Hydroxychloroquine [Plaquenil] 200 mg PO BID 03/25/13 Triamcinolone Acetonide [Nasacort Aq Nasal [place]] 1 spray NASAL DAILY PRN 03/25/13 Tegretol Xr 400 mg PO BID 03/26/13 Amlodipine Besylate 10 mg PO DAILY 10/23/18 Losartan Potassium [Cozaar] 100 mg PO DAILY tab 03/24/19 Primary Care Physician: Estrellita Cortez NP-C [Primary Care Provider] - Please follow up with your Primary Care Physician in: Monday-get lab rechecked- cbc and tegretol level Disposition: Home Minutes spent on discharge:: 30 Patient Condition:: Stable Medical Necessity - Tobacco Use Smoking Status: Never smoker Tobacco Use: Non-smoker Meaningful Use Info Meaningful Use Diagnoses (Choose all that apply): None applicable Code Visit OBSV E&M: 21861 Observation care discharge
== END 2019-03-24 17:16 | disposition home or self-care (01) ==
LOC: ED 20:16 → MS3 23:35
PROVIDERS: Admitting Provider Family Medicine; Emergency Provider Emergency Medicine; PCP Nurse Practitioner; Visit Provider Internal Medicine
DX: R42 Dizziness and giddiness (principal); D50.9 Iron deficiency anemia, unspecified; I10 Essential (primary) hypertension; M06.9 Rheumatoid arthritis, unspecified; G40.909 Epilepsy, unspecified, not intractable, without status epilepticus; E78.5 Hyperlipidemia, unspecified; E66.9 Obesity, unspecified; F32.9 Major depressive disorder, single episode, unspecified; F41.9 Anxiety disorder, unspecified; Z71.3 Dietary counseling and surveillance; Z68.30 Body mass index [BMI] 30.0-30.9, adult; Z79.899 Other long term (current) drug therapy; Z79.82 Long term (current) use of aspirin
CPT/HCPCS: 36415; 70450; 70551; 80048; 80156; 81001; 82728; 83540; 83550; 83735; 84484; 85025; 93005; 96361; 96372; 96374; 97162; 97166; 99218; 99251; 99285; J7030; A4216; G0378; G0463

== ENCOUNTER → 2019-08-14 08:51 | Outpatient (CLI) | payer MEDICARE, SELFPAY ==
--- NOTE | 2019-08-14 09:02 | ECHOD_ITS ---
Reason For Study: HTN Procedure This was a 2D Doppler, Color Flow transthoracic echocardiogram. Exam performed in department. Left Ventricle Normal size and thickness. The estimated ejection fraction is 65 %. Stage 1 diastolic dysfunction. No regional wall motion abnormalities noted. Right Ventricle Normal size and thickness. Normal systolic function. Atria Normal left atrium. Normal right atrium. Normal atrial septum. Mitral Valve Mild diffuse mitral valve thickening. Moderate mitral annular calcification extending into the posterior leaflet. Tricuspid Valve Normal tricuspid valve. Trivial tricuspid valve insufficiency. Right ventricular systolic pressure estimated to be 28 mmHg. Aortic Valve Trisinus/trileaflet aortic valve. Moderate diffuse aortic valve thickening. Mild focal aortic valve thickening. Mild restriction of the aortic valve. Fixed, immobile noncoronary cusp. Mild aortic stenosis. Peak aortic valve gradient 15 mmHg. Mean aortic valve gradient 7 mmHg. Pulmonic Valve Normal pulmonic valve. Trivial pulmonic valve insufficiency. Great Vessels Normal aortic root. Mild atherosclerosis of the aortic arch. Normal inferior vena cava. Inferior vena cava collapse with sniff. Pericardium/Pleural No pericardial effusion. MMode/2D Measurements & Calculations LVIDd: 4.5 cm IVSd: 1.0 cm LVOT diam: 2.1 cm LVIDs: 2.6 cm LVPWd: 0.90 cm LVOT area: 3.5 cm2 RVDd: 3.4 cm FS: 42.4 % Ao root diam: 3.4 cm LAV(MOD-bp): 29.5 ml LVAd ap4: 23.5 cm2 LAV(MOD-bp) Indexed: 14.7 ml/m2 EDV(MOD-sp4): 63.0 ml LAV(MOD-sp2): 33.3 ml EDV(sp4-el): 65.8 ml LAV(MOD-sp4): 24.8 ml LVAs ap4: 14.6 cm2 ESV(MOD-sp4): 29.3 ml ESV(sp4-el): 29.6 ml EF(MOD-sp4): 53.5 % EF(sp4-el): 55.0 % SV(MOD-sp4): 33.7 ml SV(sp4-el): 36.2 ml LA A4 area: 12.6 cm2 LA dimension(2D): 2.8 cm RA A4 area: 12.5 cm2 Doppler Measurements & Calculations MV E max nayan: 69.7 cm/sec Lat Peak E' Nayan: 5.8 cm/sec Med Peak E' Nayan: 7.4 cm/sec MV A max nayan: 98.2 cm/sec E/E' lat: 12.1 E/E' med: 9.4 MV E/A: 0.71 Ao V2 max: 194.5 cm/sec LV V1 max: 128.0 cm/sec SV(LVOT): 94.0 ml Ao max P.1 mmHg LV V1 max P.5 mmHg Ao V2 mean: 126.4 cm/sec LV V1 mean P.4 mmHg Ao mean P.2 mmHg LV V1 mean: 84.9 cm/sec Ao V2 VTI: 38.6 cm LV V1 VTI: 27.1 cm RASHID(I,D): 2.4 cm2 RASHID(V,D): 2.3 cm2 PA V2 max: 107.7 cm/sec TR max nayan: 233.5 cm/sec TR max P.9 mmHg Interpretation Summary The estimated ejection fraction is 65 %. Stage 1 diastolic dysfunction. Trivial tricuspid valve insufficiency. Right ventricular systolic pressure estimated to be 28 mmHg. Fixed, immobile noncoronary cusp. Mild aortic stenosis. Compared to echo report dated 05/25/2018, LV function and degree of aortic stenosis has remained about the same. Ordering Physician: Estrellita Cortez Referring Physician: Estrellita Cortez Performed By: Ana Cristina Nolan RDCS
== END ==
PROVIDERS: PCP Nurse Practitioner; Referring Provider Nurse Practitioner; Visit Provider Nurse Practitioner
DX: I51.89 Other ill-defined heart diseases (principal); I10 Essential (primary) hypertension
CPT/HCPCS: 93306

== ENCOUNTER → 2019-09-30 12:32 | Outpatient (CLI) | payer MEDICARE, SELFPAY ==
--- NOTE | 2019-09-30 12:34 | BI_ITS ---
MAMMOGRAPHY - BILATERAL SCREENING REASON FOR EXAM: Female, 73 years old. Routine annual screening examination. PERTINENT HISTORY: Aunt with breast cancer. TECHNIQUE: Digital bilateral breast [place]ino (3D mammographic acquisition) in the CC and MLO projections. 2-D mediolateral oblique (MLO) and craniocaudad (CC) views of both breasts were obtained. CAD: Full Field Digital Mammography with Computer Added Detection was performed. COMPARISON: Comparison is made with prior examination dated 09-28-18 and 09-26-17. FINDINGS: Breast Composition: There are scattered areas of fibroglandular density. There are no dominant masses or suspicious calcifications. Stable small bilateral benign-appearing axillary lymph nodes. No other significant abnormalities are identified. There has been no significant change since the prior study. BI/SCREEN MAMM (CAD) W/CHINO BILAT IMPRESSION: Stable bilateral screening mammogram. Yearly follow-up mammogram recommended. (A) ASSESSMENT CATEGORY: BIRADS Category 2: Benign. A letter regarding these results will be sent to the patient by the facility within 30 days. Approximately 10% of breast cancers are not detected by mammography. A normal mammogram should not delay biopsy of a clinically suspicious abnormality. [id number] Electronically Signed: Gabriel Linton, at 13:26 EDT , Service support ,
== END ==
PROVIDERS: PCP Nurse Practitioner; Referring Provider Nurse Practitioner; Visit Provider Nurse Practitioner
DX: Z12.31 Encounter for screening mammogram for malignant neoplasm of breast (principal)
CPT/HCPCS: 77063; 77067

== ENCOUNTER → 2019-11-06 14:28 | Outpatient (CLI) | payer MEDICARE, SELFPAY ==
[2019-11-06 14:56] LABS: Absolute Lymphocyte Count 1.24 X10^3/uL (0.83-4.51); Absolute Neutrophil Count 2.8 X10^3/uL (2.0-7.7); Basophil# 0.02 X10^3/uL; Basophil% 0.4 % (0-1); Eosinophil# 0.03 X10^3/uL; Eosinophils% 0.7 % (0-5); Hematocrit 29.6 % (37-47); Hemoglobin 10.3 g/dL (12.0-15.0); Lymphocyte # 1.24 X10^3/ul (4.0); Lymphocyte % 27.3 % (19-41); Mean Corp Hgb Conc 34.8 g/dL (32-36); Mean Corpuscular Hgb 28.9 pg (27.0-32.0); Mean Corpuscular Volume 82.9 fL (81-99); Mean Platelet Vol. 8.7 fl (6.2-12.0); Monocyte# 0.42 X10^3/uL; Monocyte% 9.2 % (0-10); NRBC Flagged by Analyzer 0 % (0-5); Neutrophil # 2.83 X10^3/uL (2.7-7.7); Neutrophil % 62.2 % (47-70); Platelet Count 288 K/mm3 (150-450); RBC Distribution Width CV 12.1 % (11.6-14.6); RBC Distribution Width SD 36.8 fl (35.1-43.9); Red Blood Count 3.57 M/mm3 (4.2-5.4); White Blood Count 4.6 K/mm3 (4.4-11.0)
[2019-11-06 15:51] LABS: AST(SGOT) 17 U/L (15-37); Alanine Aminotransfer ALT/SGPT 12 U/L (13-56); Albumin, Serum 3.2 g/dL (3.2-5.0); Alkaline Phosphatase 107 U/L (45-117); Anion Gap 7 (5-15); BUN 12 mg/dL (7-18); BUN/Creat Ratio 17.7 RATIO (10-20); Bilirubin, Direct 0.08 mg/dL (0.00-0.30); Calcium,Total 8.7 mg/dL (8.5-10.1); Chloride 97 mmol/L (98-107); Creatinine, Serum 0.68 mg/dL (0.55-1.02); EST Glomerular Filtration Rate 90 mL/min (>60); Est Glom Filt Rate - Afr Amer 109 mL/min (>60); Globulin 3.5 g/dL (2.2-4.2); Glucose 88 mg/dL (74-106); LDH 127 U/L (84-246); Potassium 3.5 mmol/L (3.5-5.1); Protein, Total 6.7 g/dL (6.4-8.2); Sodium Level 131 mmol/L (136-145)
== END ==
PROVIDERS: PCP Nurse Practitioner; Referring Provider Nurse Practitioner; Visit Provider Nurse Practitioner
DX: E87.1 Hypo-osmolality and hyponatremia (principal)
CPT/HCPCS: 36415; 80048; 80076; 83615; 85025

== ENCOUNTER → 2019-11-14 10:00 | Outpatient (CLI) | payer MEDICARE, SELFPAY | PROVIDERS: PCP Nurse Practitioner; Visit Provider Nurse Practitioner | DX: R42 Dizziness and giddiness (principal) | CPT/HCPCS: 94762 ==

== ENCOUNTER → 2020-01-08 16:20 | Outpatient (CLI) | payer MEDICARE, SELFPAY ==
[2020-01-08 17:07] LABS: Absolute Lymphocyte Count 2.06 X10^3/uL (0.83-4.51); Basophil# 0.02 X10^3/uL; Basophil% 0.4 % (0-1); Eosinophil# 0.06 X10^3/uL; Eosinophils% 1.1 % (0-5); Hematocrit 33.9 % (37-47); Hemoglobin 11.4 g/dL (12.0-15.0); Lymphocyte # 2.06 X10^3/ul (4.0); Lymphocyte % 36.7 % (19-41); Mean Corp Hgb Conc 33.6 g/dL (32-36); Mean Corpuscular Hgb 30.2 pg (27.0-32.0); Mean Corpuscular Volume 89.9 fL (81-99); Mean Platelet Vol. 9.5 fl (6.2-12.0); Monocyte# 0.48 X10^3/uL; Monocyte% 8.5 % (0-10); NRBC Flagged by Analyzer 0 % (0-5); Neutrophil # 2.98 X10^3/uL (2.7-7.7); Neutrophil % 52.9 % (47-70); Platelet Count 297 K/mm3 (150-450); Red Blood Count 3.77 M/mm3 (4.2-5.4); White Blood Count 5.6 K/mm3 (4.4-11.0)
[2020-01-08 17:41] LABS: ALB/GLOB Ratio 0.9 RATIO (0.9-2.4); AST(SGOT) 22 U/L (15-37); Alanine Aminotransfer ALT/SGPT 23 U/L (13-56); Albumin, Serum 3.4 g/dL (3.2-5.0); Alkaline Phosphatase 120 U/L (45-117); Anion Gap 9 (5-15); BUN 17 mg/dL (7-18); BUN/Creat Ratio 25.3 RATIO (10-20); Chloride 100 mmol/L (98-107); Creatinine, Serum 0.67 mg/dL (0.55-1.02); EST Glomerular Filtration Rate 91 mL/min (>60); Est Glom Filt Rate - Afr Amer 110 mL/min (>60); Globulin 3.8 g/dL (2.2-4.2); Glucose 87 mg/dL (74-106); Potassium 3.4 mmol/L (3.5-5.1); Protein, Total 7.2 g/dL (6.4-8.2); Sodium Level 137 mmol/L (136-145)
== END ==
PROVIDERS: PCP Nurse Practitioner; Visit Provider Internal Medicine Rheumatology
DX: M05.70 Rheumatoid arthritis with rheumatoid factor of unspecified site without organ or systems involvement (principal); M35.00 Sjogren syndrome, unspecified; M65.331 Trigger finger, right middle finger; M65.332 Trigger finger, left middle finger; I10 Essential (primary) hypertension; G40.802 Other epilepsy, not intractable, without status epilepticus
CPT/HCPCS: 36415; 80053; 85025

== ENCOUNTER 2020-04-29 14:45 | Outpatient (RCR) | payer MEDICARE, SELFPAY | END 2020-04-29 23:59 | LOC: IMMUN 14:45 | PROVIDERS: PCP Nurse Practitioner; Referring Provider Family Medicine; Visit Provider Family Medicine | DX: Z23 Encounter for immunization (principal) | CPT/HCPCS: 0011A; 0012A; 91301 ==

== ENCOUNTER → 2020-07-07 09:47 | Outpatient (CLI) | payer MEDICARE, SELFPAY ==
[2020-07-07 10:58] LABS: Absolute Lymphocyte Count 1.32 X10^3/uL (0.83-4.51); Absolute Neutrophil Count 3.1 X10^3/uL (2.0-7.7); Basophil# 0.03 X10^3/uL; Basophil% 0.6 % (0-1); Eosinophil# 0.09 X10^3/uL; Eosinophils% 1.8 % (0-5); Hematocrit 33.6 % (37-47); Hemoglobin 10.9 g/dL (12.0-15.0); Lymphocyte # 1.32 X10^3/ul (0.83-4.51); Lymphocyte % 26.3 % (19-41); Mean Corp Hgb Conc 32.4 g/dL (32-36); Mean Corpuscular Hgb 29.3 pg (27.0-32.0); Mean Corpuscular Volume 90.3 fL (81-99); Mean Platelet Vol. 9.3 fl (6.2-12.0); Monocyte# 0.49 X10^3/uL; Monocyte% 9.8 % (0-10); NRBC Flagged by Analyzer 0 % (0-5); Neutrophil # 3.08 X10^3/uL (2.7-7.7); Neutrophil % 61.3 % (47-70); Platelet Count 315 K/mm3 (150-450); RBC Distribution Width CV 12.2 % (11.6-14.6); RBC Distribution Width SD 39.9 fl (35.1-43.9); Red Blood Count 3.72 M/mm3 (4.2-5.4)
[2020-07-07 11:55] LABS: ALB/GLOB Ratio 0.8 RATIO (0.9-2.4); AST(SGOT) 19 U/L (15-37); Alanine Aminotransfer ALT/SGPT 21 U/L (13-56); Albumin, Serum 3.1 g/dL (3.2-5.0); Alkaline Phosphatase 139 U/L (45-117); Anion Gap 6 (5-15); BUN 12 mg/dL (7-18); BUN/Creat Ratio 20.2 RATIO (10-20); Calcium,Total 8.5 mg/dL (8.5-10.1); Chloride 100 mmol/L (98-107); EST Glomerular Filtration Rate 105 mL/min (>60); Est Glom Filt Rate - Afr Amer 127 mL/min (>60); Globulin 3.8 g/dL (2.2-4.2); Glucose 69 mg/dL (74-106); Potassium 3.6 mmol/L (3.5-5.1); Protein, Total 6.9 g/dL (6.4-8.2); Sodium Level 135 mmol/L (136-145)
== END ==
PROVIDERS: PCP Nurse Practitioner; Referring Provider Internal Medicine Rheumatology; Visit Provider Internal Medicine Rheumatology
DX: M05.70 Rheumatoid arthritis with rheumatoid factor of unspecified site without organ or systems involvement (principal); M35.00 Sjogren syndrome, unspecified; M65.331 Trigger finger, right middle finger; M65.332 Trigger finger, left middle finger; I10 Essential (primary) hypertension; G40.802 Other epilepsy, not intractable, without status epilepticus; M47.897 Other spondylosis, lumbosacral region
CPT/HCPCS: 36415; 80053; 85025

== ENCOUNTER → 2020-07-21 11:07 | Outpatient (CLI) | payer MEDICARE, SELFPAY ==
--- NOTE | 2020-07-21 11:09 | CT_ITS ---
STUDY: CT ABDOMEN AND PELVIS WITH CONTRAST REASON FOR EXAM: Female, 74 years old. ABD PAIN RADIATION DOSAGE (If Supplied By Facility): CTDIvol = ( 14.91 ) mGy, DLP = ( 1021.01 ) mGycm TECHNIQUE: Transaxial images were obtained from the dome of the diaphragm to the symphysis pubis without oral contrast. Oral and amp; IV Gastrografin and amp; 100mL Isovue-300 was administered. Sagittal and coronal images were reconstructed. Individualized dose optimization techniques were used for this CT. COMPARISON: None. FINDINGS: The visualized lung bases are unremarkable. The visualized portions of the heart are within normal limits. Normal liver. There is non-visualization of the gallbladder, which may be secondary to either contraction or a prior cholecystectomy. Normal spleen. Normal pancreas. Normal bilateral adrenal glands. No obstructive uropathy, there are simple left renal cysts. Normal visualized stomach. Normal small intestine. Normal colon. The appendix is visualized and appears normal. Appendix seen on coronal recon image 65 Normal abdominal aorta. Normal inferior vena cava. Normal retroperitoneum. Normal urinary bladder. Uterus is still present, the endometrium cannot be accurately evaluated with CT. No suspicious cystic mass or free fluid There is a oval nonspecific soft tissue density projecting between the gluteal fold and the left ischial tuberosity of uncertain etiology or significance Normal abdominal wall. There are diffuse degenerative changes of the visualized lumbar spine, and pelvis. CT/Abdomen/Pelvis WITH Contrast IMPRESSION: No suspicious solid organ abnormality, simple left renal cysts, no specific follow-up needed No free intraperitoneal fluid, air, or suspicious adenopathy Normal appendix visualized Uterus is still present, the endometrium cannot be accurately evaluated with CT. Electronically Signed: Jordan Gutierrez MD at 11:43 EDT , Service support ,
== END ==
PROVIDERS: PCP Nurse Practitioner; Referring Provider Nurse Practitioner; Visit Provider Nurse Practitioner
DX: R10.9 Unspecified abdominal pain (principal)
CPT/HCPCS: 74177; Q9967

== ENCOUNTER → 2020-10-15 08:53 | Outpatient (CLI) | payer MEDICARE, SELFPAY ==
--- NOTE | 2020-10-15 09:25 | BI_ITS ---
MAMMOGRAPHY - BILATERAL SCREENING REASON FOR EXAM: Female, 75 years old. Routine annual screening examination. PERTINENT HISTORY: Aunt with breast cancer. TECHNIQUE: Digital bilateral breast chino (3D mammographic acquisition) in the CC and MLO projections. 2-D mediolateral oblique (MLO) and craniocaudad (CC) views of both breasts were obtained. CAD: Full Field Digital Mammography with Computer Added Detection was performed. COMPARISON: Comparison is made with prior study dated 09/30/2019 and 09/28/2018. FINDINGS: Breast Composition: There are scattered areas of fibroglandular density. There are no dominant masses or suspicious calcifications. Stable stable small benign-appearing bilateral axillary lymph. No other significant abnormalities are identified. There has been no significant change since the prior study. BI/SCRN MAMM (CAD)W/CHINO BILAT IMPRESSION: Stable bilateral screening mammogram. Yearly follow-up mammogram recommended. (A) ASSESSMENT CATEGORY: BIRADS Category 2: Benign. A letter regarding these results will be sent to the patient by the facility within 30 days. Approximately 10% of breast cancers are not detected by mammography. A normal mammogram should not delay biopsy of a clinically suspicious abnormality. [id number] Electronically Signed: Gabriel Linton MD at 11:56 EDT , Service support ,
--- NOTE | 2020-10-15 09:28 | BD_ITS ---
STUDY: DUAL ENERGY X-RAY ABSORPTIOMETRY / DXA REASON FOR EXAM: Female, 75 years old. 627.8Menopausal postmenopausal BONE DENSITY REASON FOR EXAM TECHNIQUE: Bone Mineral Density (BMD) measurements of lumbar spine and bilateral hips were obtained. COMPARISON: Comparison is made with prior study dated 09/26/2017. FINDINGS: Lumbar Spine (L1-L4): g/cm2 (0.826) / T-score (-1.4) / Z-score (0.9) Findings are suggestive of osteopenia with a moderate fracture risk. Left Femur Total: g/cm2 (0.789) / T-score (-1.3) / Z-score (0.5) Left Femoral Neck: g/cm2 (0.816) / T-score (-0.3) / Z-score (1.8) Right Femur Total: g/cm2 (0.736) / T-score (-1.7) / Z-score (0.1) Right Femoral Neck: g/cm2 (0.710) / T-score (-1.2) / Z-score (0.8) The T-Scores on the most recent prior examination were: Lumbar Spine (L1-L4): There has been worsening of bone density since the previous examination. Left Femur Total: which represents a worsening of 11.1%. Right Femur Total: which represents a worsening of 10.1%. BD/Dexa Bone Density Study IMPRESSION: The patient is considered osteopenic as outlined below according to World Connor Organization (WHO) criteria with a moderate fracture risk. There has been worsening of bone density since the previous examination. Reference Information: The T-score is the number of standard deviations above or below the standard which is normal for young adults at their peak bone mineral density. The World Health Organization (WHO) interprets the T-scores as follows: Above -1 Normal bone density Between -1 and -2.5 Osteopenia Equal to / or below -2.5 Osteoporosis As a practical clinical guideline, osteopenia may be graded as follows: Mild -1 through -1.5 Moderate -1.6 through -2.0 Severe -2.1 through -2.4 The Z-score is the number of standard deviations above or below age-matched controls. A Z-score of less than -1.5 would be considered abnormal. References: 1. NIH Osteoporosis and Related Bone Diseases www osteo.org 2. International Society for Clinical Densitometry www iscd.org 3. National Osteoporosis Foundation www nof.org Electronically Signed: Gabriel Linton MD at 12:26 EDT , Service support ,
== END ==
PROVIDERS: PCP Nurse Practitioner; Referring Provider Nurse Practitioner; Visit Provider Nurse Practitioner
DX: Z12.31 Encounter for screening mammogram for malignant neoplasm of breast (principal); M85.80 Other specified disorders of bone density and structure, unspecified site; Z78.0 Asymptomatic menopausal state; Z80.3 Family history of malignant neoplasm of breast
CPT/HCPCS: 77063; 77067; 77080

== ENCOUNTER → 2020-12-31 09:47 | Outpatient (CLI) | payer MEDICARE, SELFPAY ==
[2020-12-31 10:28] LABS: Absolute Lymphocyte Count 1.08 X10^3/uL (0.83-4.51); Absolute Neutrophil Count 2.7 X10^3/uL (2.0-7.7); Basophil# 0.02 X10^3/uL; Basophil% 0.5 % (0-1); Eosinophil# 0.03 X10^3/uL; Eosinophils% 0.7 % (0-5); Hematocrit 31.6 % (37-47); Lymphocyte # 1.08 X10^3/ul (0.83-4.51); Lymphocyte % 25.5 % (19-41); Mean Corp Hgb Conc 34.8 g/dL (32-36); Mean Corpuscular Hgb 29.9 pg (27.0-32.0); Mean Corpuscular Volume 85.9 fL (81-99); Monocyte# 0.37 X10^3/uL; Monocyte% 8.7 % (0-10); NRBC Flagged by Analyzer 0 % (0-5); Neutrophil # 2.71 X10^3/uL (2.7-7.7); Neutrophil % 64.1 % (47-70); Platelet Count 288 K/mm3 (150-450); RBC Distribution Width CV 12.2 % (11.6-14.6); RBC Distribution Width SD 38.5 fl (35.1-43.9); Red Blood Count 3.68 M/mm3 (4.2-5.4); White Blood Count 4.2 K/mm3 (4.4-11.0)
[2020-12-31 11:12] LABS: ALB/GLOB Ratio 0.7 RATIO (0.9-2.4); AST(SGOT) 16 U/L (15-37); Alanine Aminotransfer ALT/SGPT 20 U/L (13-56); Albumin, Serum 3.1 g/dL (3.2-5.0); Alkaline Phosphatase 120 U/L (45-117); Anion Gap 8 (5-15); BUN 13 mg/dL (7-18); BUN/Creat Ratio 21.2 RATIO (10-20); Calcium,Total 8.9 mg/dL (8.5-10.1); Chloride 98 mmol/L (98-107); Creatinine, Serum 0.61 mg/dL (0.55-1.02); EST Glomerular Filtration Rate 101 mL/min (>60); Est Glom Filt Rate - Afr Amer 122 mL/min (>60); Globulin 4.2 g/dL (2.2-4.2); Glucose 92 mg/dL (74-106); Potassium 4.1 mmol/L (3.5-5.1); Protein, Total 7.3 g/dL (6.4-8.2); Sodium Level 134 mmol/L (136-145)
== END ==
PROVIDERS: PCP Nurse Practitioner; Referring Provider Internal Medicine Rheumatology; Visit Provider Internal Medicine Rheumatology
DX: M05.70 Rheumatoid arthritis with rheumatoid factor of unspecified site without organ or systems involvement (principal); M35.00 Sjogren syndrome, unspecified; M65.331 Trigger finger, right middle finger; M65.332 Trigger finger, left middle finger; I10 Essential (primary) hypertension; G40.802 Other epilepsy, not intractable, without status epilepticus; M47.897 Other spondylosis, lumbosacral region
CPT/HCPCS: 36415; 80053; 85025

== ENCOUNTER → 2021-06-28 | Outpatient (CLI) | payer MEDICARE, SELFPAY ==
[2021-06-28 09:34] LABS: Absolute Neutrophil Count 2.7 X10^3/uL (2.0-7.7); Basophil# 0.03 X10^3/uL; Basophil% 0.6 % (0-1); Eosinophil# 0.04 X10^3/uL; Eosinophils% 0.9 % (0-5); Hematocrit 29.3 % (37-47); Lymphocyte % 30.1 % (19-41); Mean Corp Hgb Conc 34.1 g/dL (32-36); Mean Platelet Vol. 9.4 fl (6.2-12.0); Monocyte# 0.44 X10^3/uL; Monocyte% 9.5 % (0-10); NRBC Flagged by Analyzer 0 % (0-5); Neutrophil # 2.71 X10^3/uL (2.7-7.7); Neutrophil % 58.3 % (47-70); Platelet Count 263 K/mm3 (150-450); RBC Distribution Width CV 12.1 % (11.6-14.6); RBC Distribution Width SD 39.4 fl (35.1-43.9); Red Blood Count 3.33 M/mm3 (4.2-5.4); White Blood Count 4.7 K/mm3 (4.4-11.0)
[2021-06-28 09:50] LABS: ALB/GLOB Ratio 0.9 RATIO (0.9-2.4); AST(SGOT) 18 U/L (15-37); Alanine Aminotransfer ALT/SGPT 22 U/L (13-56); Albumin, Serum 3.2 g/dL (3.2-5.0); Alkaline Phosphatase 107 U/L (45-117); Anion Gap 6 (5-15); BUN 14 mg/dL (7-18); BUN/Creat Ratio 23.6 RATIO (10-20); Calcium,Total 8.6 mg/dL (8.5-10.1); Chloride 98 mmol/L (98-107); Creatinine, Serum 0.59 mg/dL (0.55-1.02); EST Glomerular Filtration Rate 105 mL/min (>60); Est Glom Filt Rate - Afr Amer 127 mL/min (>60); Globulin 3.5 g/dL (2.2-4.2); Glucose 97 mg/dL (74-106); Potassium 4.1 mmol/L (3.5-5.1); Protein, Total 6.7 g/dL (6.4-8.2); Sodium Level 133 mmol/L (136-145)
== END | disposition home or self-care (01) ==
LOC: LAB 08:37
PROVIDERS: PCP Nurse Practitioner; Referring Provider Internal Medicine Rheumatology; Visit Provider Internal Medicine Rheumatology
DX: M05.70 Rheumatoid arthritis with rheumatoid factor of unspecified site without organ or systems involvement (principal); M35.00 Sjogren syndrome, unspecified; G40.802 Other epilepsy, not intractable, without status epilepticus; M65.331 Trigger finger, right middle finger; M65.332 Trigger finger, left middle finger; I10 Essential (primary) hypertension; M47.897 Other spondylosis, lumbosacral region
CPT/HCPCS: 36415; 80053; 85025

== ENCOUNTER → 2021-10-18 | Outpatient (CLI) | payer MEDICARE, SELFPAY ==
--- NOTE | 2021-10-18 11:51 | BI_ITS ---
MAMMOGRAPHY - BILATERAL SCREENING REASON FOR EXAM: Female, 76 years old. Routine annual screening examination. PERTINENT HISTORY: Aunt with breast cancer. TECHNIQUE: Digital bilateral breast chino (3D mammographic acquisition) in the CC and MLO projections. 2-D mediolateral oblique (MLO) and craniocaudad (CC) views of both breasts were obtained. CAD: Full Field Digital Mammography with Computer Added Detection was performed. COMPARISON: Comparison mammogram from 10/15/2020, 09/30/2019. FINDINGS: Breast Composition: There are scattered areas of fibroglandular density. There are no dominant masses or suspicious calcifications. No other significant abnormalities are identified. There has been no significant change since the prior study. BI/SCRN MAMM (CAD)W/CHINO BILAT IMPRESSION: Stable bilateral screening mammogram. Yearly follow-up mammogram recommended. (A) ASSESSMENT CATEGORY: BIRADS Category 1: Negative. A letter regarding these results will be sent to the patient by the facility within 30 days. Approximately 10% of breast cancers are not detected by mammography. A normal mammogram should not delay biopsy of a clinically suspicious abnormality. Electronically Signed: Kai Mcclain, at 16:28 EDT ,
== END | disposition home or self-care (01) ==
LOC: OPBI 11:49
PROVIDERS: PCP Nurse Practitioner; Visit Provider Nurse Practitioner Family
DX: Z12.31 Encounter for screening mammogram for malignant neoplasm of breast (principal); Z80.3 Family history of malignant neoplasm of breast
CPT/HCPCS: 77063; 77067

== ENCOUNTER 2021-10-28 09:30 | Observation (INO) | payer MEDICARE, SELFPAY ==
[2021-10-28] VITALS (8 sets, daily range): BP systolic 92–144; BP diastolic 52–75; PULSE 62–87; RESP 16–17; TEMP 36.3–37.2; O2SAT 96–99; BMI 30.2; BMI 30.3
[2021-10-28 10:34] LABS: Absolute Lymphocyte Count 0.47 X10^3/uL (0.83-4.51); Absolute Neutrophil Count 4.7 X10^3/uL (2.0-7.7); Basophil# 0.01 X10^3/uL; Basophil% 0.2 % (0-1); Hematocrit 28.3 % (37-47); Hemoglobin 10.5 g/dL (12.0-15.0); Lymphocyte # 0.47 X10^3/ul (0.83-4.51); Lymphocyte % 8.6 % (19-41); Mean Corp Hgb Conc 37.1 g/dL (32-36); Mean Corpuscular Hgb 30.3 pg (27.0-32.0); Mean Corpuscular Volume 81.8 fL (81-99); Mean Platelet Vol. 8.7 fl (6.2-12.0); Monocyte# 0.25 X10^3/uL; Monocyte% 4.6 % (0-10); NRBC Flagged by Analyzer 0 % (0-5); Neutrophil # 4.66 X10^3/uL (2.7-7.7); Neutrophil % 85.3 % (47-70); POSITIVE DIFFERENTIAL YES; Platelet Count 250 K/mm3 (150-450); RBC Distribution Width CV 11.8 % (11.6-14.6); RBC Distribution Width SD 34.7 fl (35.1-43.9); Red Blood Count 3.46 M/mm3 (4.2-5.4); White Blood Count 5.5 K/mm3 (4.4-11.0)
--- NOTE | 2021-10-28 10:45 | EDS_ITS ---
HPI History of Present Illness Chief Complaint: Seizure Detail of Chief Complaint: Seizure at midnight and at 0915 Informant: patient and spouse/S.O. Onset/Context/Timing Onset: Today (Midnight and 0915) Context: Sudden Onset Timing: Intermittent (Generalized tonic-clonic at midnight lasting 5 to 10 minutes and small seizure 0915) Quality: Generalized tonic-clonic Location: Bed Current Severity: Mild (Post ictal) Maximum Severity: Severe Worsened by: GI prep for colonoscopy possibly Relieved by: Nothing Associated Symptoms Associated Symptoms: Postictal state Narrative Narrative: Patient is a 76-year-old woman with history of seizure disorder. She is on Tegretol. She states she has not missed any doses. She did do a bowel prep for colonoscopy. She is uncertain why she had a colonoscopy. As previously documented she is postictal. She does not know her age or the month. Furthermore she does not know the present year. She denies headache, visual, ocular auditory symptoms. Denies ringing in ears decreased hearing. Denies trouble with speech or swallowing. Denies cardiac respiratory symptoms. There was no vomiting or diarrhea per . She denies urologic symptoms. According to last seizure was 5 years ago. There is no history of trauma. Prior similar symptoms: Yes Recent Illness/Hospitalization: No [facility] Medical History Epilepsy Hyperlipidemia Hypertension Seizures Vertigo Home Medications citalopram 20 mg tablet 20 mg PO DAILY depression 03/25/13 [History Last Taken 03/23/19 12:00] hydroxychloroquine 200 mg tablet 200 mg PO BID RA 03/25/13 [History Last Taken 03/23/19 18:00] triamcinolone acetonide 55 mcg nasal spray aerosol (Nasal Allergy) 1 spray DAILY PRN Congestion 03/25/13 [History Last Taken 03/21/19] amlodipine 5 mg tablet 10 mg PO DAILY blood pressure 10/23/18 [History Last Taken 03/23/19 12:00] losartan 100 mg tablet 100 mg PO DAILY 03/24/19 [Rx Last Taken Unknown] carbamazepine 400 mg tablet,extended release,12 hr (Tegretol XR) 400 mg PO BID 10/28/21 [History Last Taken Unknown] Allergy/AdvReac Type Severity Reaction Status Date / Time No Known Allergies Allergy Verified 10/28/21 09:32 Surgical History History of tonsillectomy Social History (Updated 10/28/21 @ 10:[address] Greg Burgess MD) household members: spouse Smoking Status: Never smoker substance use type: does not use ROS ROS ED Review of Systems ROS Unobtainable: due to mental status and other Details: Responses are to present symptoms. Patient does not recall either seizure. Constitutional Constitutional ED: Denies chills or fever(s) Eyes Eyes: Denies blurry vision, change in vision or diplopia ENT ENT ED: Reports other Details: Patient states she did not bite her tongue. ; Denies ear pain, rhinorrhea or sore throat Cardiovascular Cardiovascular: Denies chest pain, orthopnea or palpitations Respiratory/Chest Respiratory/Chest: Denies cough, dyspnea or orthopnea Gastrointestinal Gastrointestinal: Denies abdominal pain, constipation, diarrhea, nausea or vomiting Genitourinary Genitourinary ED: Reports other Details: There was no incontinence of urine or stool. ; Denies dysuria, hematuria or urinary frequency Musculoskeletal Musculoskeletal: Denies arthralgias, back pain, myalgias or neck pain Neurologic Neurologic: Denies headache(s), paresthesias or weakness Psychiatric Psychiatric: Denies anxiety or depression Hematologic/Lymphatic Hematologic/Lymphatic: Denies anemia, easy bleeding or easy bruising Allergic/Immunologic Allergic/Immunologic ED: Denies mouth swelling, tongue swelling or urticaria EXAM Physical Exam Const Vital Signs: 10/28/21 09:34 Temperature 97.3 F L Temperature Source Temporal Pulse Rate 87 Respiratory Rate 17 Blood Pressure 92/75 Blood Pressure Mean 80 Pulse Ox 96 Oxygen Delivery Method Room Air Positive well nourished and well developed; Negative for unkempt General Appearance ED: well developed; Negative for unkempt, cyanotic, diaphoretic or NAD HEENT Reports moist mucous membranes HEENT Narrative: Head is atraumatic normocephalic. Nares patent. No drainage. Uvula midline. No deviation of tongue with protrusion. There is no erythema or exudate. Eyes PERRL and EOMs intact bilaterally General Eye ED: Negative for pale conjunctiva or scleral icterus Neck no lymphadenopathy, supple and no JVD Neck Narrative: There is no carotid bruit. Chest Wall palpation of chest normal Resp normal respiratory effort and clear to auscultation bilaterally Cardio regular rate, regular rhythm, S1 normal heart sound, S2 normal heart sound and no murmurs GI normal to inspection, nondistended, normoactive bowel sounds, non-tender, non- distended and no masses; Negative for hepatosplenomegaly Back/Spine no CVA tenderness Thoracic Spine / Upper Back: Negative for thoracic spinal tenderness Lumbar Spine / Lower Back: Negative for lumbar spinal tenderness Extremity normal to inspection General Extremety ED: Negative for edema or tenderness General Extremity: Negative for edema Neuro No oriented x3, CN's II-XII intact bilaterally and no sensory deficits noted Sensorium / Orientation: orientation impaired; Negative for alert Motor Exam: strength 5/5 throughout Psych mental status grossly normal Appearance: Negative for unkempt Attitude: No agitated Mood & Affect: Negative for depressed, anxious or tearful Skin no rashes or lesions noted, no wounds and skin turgor normal MDM MDM MDM Narrative Medical decision making narrative: With patient scheduled for colonoscopy suspect Tegretol level is subtherapeutic. Also need to rule out infectious electrolyte issues. She does appear pale so will obtain CBC to rule out anemia. With her completing a bowel prep rule out electrolyte abnormality and specifically hyponatremia. Lab Data Attestation: I reviewed the patient's lab results. Lab results narrative: Patient has chronic anemia and unchanged from baseline. Patient had a significant drop in sodium and suspect that her 2 seizures are related to her hyponatremia. She was reassessed at 1125. She is now alert and oriented. With her having 2 seizures and not having a seizure in 5 years suspect the hyponatremia has contributed. Her Tegretol level is therapeutic. Hospitalist has been paged for admission. Treatment is fluid restriction and since she is back to baseline normal saline. Labs: Laboratory Results - last 24 hr 10/28/21 10/28/21 10/28/21 10:15 10:15 10:15 WBC 5.5 RBC 3.46 L Hgb 10.5 L Hct 28.3 L MCV 81.8 MCH 30.3 MCHC 37.1 H RDW Std Deviation 34.7 L RDW Coeff of Pennie 11.8 Plt Count 250 MPV 8.7 Immature Gran % (Auto) 1.300 H Neut % (Auto) 85.3 H Lymph % (Auto) 8.6 L Gilchrist % (Auto) 4.6 Eos % (Auto) 0.0 Baso % (Auto) 0.2 Absolute Neuts (auto) 4.7 Absolute Lymphs (auto) 0.47 L Nucleated RBC % 0 Differential Comment SCANNED Hypochromasia 2+ Sodium 123 L Potassium 3.6 Chloride 89 L Carbon Dioxide 26.0 Anion Gap 8 BUN 5 L Creatinine 0.61 Estim Creat Clear Calc 48.28 Est GFR (MDRD) Af Amer 122 Est GFR (MDRD) Non-Af 101 BUN/Creatinine Ratio 8.2 L Glucose 122 H Calcium 8.8 Total Bilirubin 0.40 AST 22 ALT 23 Alkaline Phosphatase 103 Total Protein 6.8 Albumin 3.3 Globulin 3.5 Albumin/Globulin Ratio 0.9 Carbamazepine 8.7 Discharge Plan Dx/Rx/DC Orders Clinical Impression: Acute hyponatremia, Generalized convulsive seizures, Chronic anemia Disposition Disposition: Acute Care [facility]
[2021-10-28 10:48] LABS: Differential Indicated SCAN CRITERIA MET
[2021-10-28 10:50] LABS: ALB/GLOB Ratio 0.9 RATIO (0.9-2.4); AST(SGOT) 22 U/L (15-37); Alanine Aminotransfer ALT/SGPT 23 U/L (13-56); Albumin, Serum 3.3 g/dL (3.2-5.0); Alkaline Phosphatase 103 U/L (45-117); Anion Gap 8 (5-15); BUN 5 mg/dL (7-18); BUN/Creat Ratio 8.2 RATIO (10-20); Calcium,Total 8.8 mg/dL (8.5-10.1); Chloride 89 mmol/L (98-107); Creatinine, Serum 0.61 mg/dL (0.55-1.02); EST Glomerular Filtration Rate 101 mL/min (>60); Est Glom Filt Rate - Afr Amer 122 mL/min (>60); Estimated Creatinine Clearance 48.28 ml/min; Globulin 3.5 g/dL (2.2-4.2); Glucose 122 mg/dL (74-106); Potassium 3.6 mmol/L (3.5-5.1); Protein, Total 6.8 g/dL (6.4-8.2); Sodium Level 123 mmol/L (136-145)
[2021-10-28 11:07] LABS: Carbamazepine (Tegretol) 8.7 ug/mL (4.0-12.0)
[2021-10-28 11:08] LABS: Differential Comment SCANNED; Hypochromasia 2+
--- NOTE | 2021-10-28 11:43 | NURSING ---
DR DE PAZ FOR DR ZHANG
--- NOTE | 2021-10-28 11:47 | NURSING ---
PCU OBS TERELETSKY ACUTE HYPONATREMIA, MULTIPLE SEIZURES
--- NOTE | 2021-10-28 11:56 | CT_ITS ---
STUDY: CT BRAIN WITH AND WITHOUT CONTRAST REASON FOR EXAM: Female, 76 years old. Recurrent seizure RADIATION DOSAGE (If Supplied By Facility): CTDIvol = ( 44.99 ) mGy, DLP = ( 1682.21 ) mGycm TECHNIQUE: Transaxial CT imaging of the brain was performed pre and post contrast administration. The examination was performed with intravenous administration of IV 50mL Isovue-370. Individualized dose optimization techniques were used for this CT. COMPARISON: Comparison is made with prior study dated 03/23/2019. FINDINGS: Normal soft tissue structures. Normal calvarium. Normal size ventricles and extra-axial spaces for the patient''s age. Normal white matter tracts of the cerebral hemispheres. Normal basal ganglia and thalami. Normal brainstem. Normal cerebellum. There is no intracranial hemorrhage. There are no findings of an acute ischemic infarction. Normal visualized paranasal sinuses. CT/Brain/Head W/WO Contrast IMPRESSION: Normal unenhanced and enhanced CT scan of the brain. Electronically Signed: Gabriel Linton MD at 12:28 EDT ,
[2021-10-28] MEDS: 0.9% Normal Saline 1,000 ML 250 ML IV (12:21)
--- NOTE | 2021-10-28 15:27 | CHAPLAIN ---
Type of Pastoral Visit _x__ Initial Visit ___ Follow-up Visit ___ On-call Visit ___ General Patient Visit ___ Spiritual Assessment ___ Family Conference ___ Bereavement ___ Rapid Response ___ Code Blue ___ Other (describe below) Pastoral Care Referral From _x__ Patient ___ Family ___ Nurse ___ Physician ___ Senior C Developer ___ Logging Contractor ___ Other (describe below) Sacrament/Intervention _x__ Active listening ___ Anointing ___ Hoahaoism ___ Bereavement ___ Communion ___ Liliana exploration ___ ___ Life review _x__ Prayer ___ Reconciliation ___ Sacrament of Sick ___ Supportive presence ___ Wedding ___ Other (describe below) Pastoral Comments plans changed for patient after she experienced a seizure; pt asked about how she is coping with this change; pt offered supportive presence and prayer
--- NOTE | 2021-10-28 15:35 | HP.PCM.HOS_ITS ---
Documented by User: Cheyl Carrera NP, ANIMAL FEEDER-C 10/28/21 15:55 HPI - General General Date of Admission: 10/28/21 Date of Service: 10/28/21 Chief Complaint: Breakthrough seizure. HPI Narrative RADHA ROBERTSON, is a 76 F who presents to the emergency room due to breakthrough seizure. Patient states has been witnessed seizure last night around midnight and again this morning around 9 AM. She states her last seizure prior to this was about 5 years ago. She denies any missed doses of medication. She is on Tegretol. Patient states she has been undergoing a 3-day bowel prep and was to have colonoscopy today at [facility] with Dr. Schmid. She reports she had a colonoscopy 5 years ago and was found to have a polyp. For this reason was scheduled for repeat colonoscopy in 5 years. She reports mild lightheadedness upon standing. Reports episode of nausea, vomiting this morning. Denies vision changes or other neurologic symptoms or complaints. Denies episode of syncope. Denies falls at home. She has a past medical history of general tonic-clonic seizures, hypertension, depression, rheumatoid arthritis. [facility] Medical History (Updated 10/28/21 @ 11:[address] Greg Burgess MD) Epilepsy Hyperlipidemia Hypertension Seizures Vertigo Home Medications citalopram 20 mg tablet 20 mg PO DAILY depression 03/25/13 [History Last Taken 03/23/19 12:00] hydroxychloroquine 200 mg tablet 200 mg PO BID RA 03/25/13 [History Last Taken 03/23/19 18:00] triamcinolone acetonide 55 mcg nasal spray aerosol (Nasal Allergy) 1 spray DAILY PRN Congestion 03/25/13 [History Last Taken 03/21/19] amlodipine 5 mg tablet 10 mg PO DAILY blood pressure 10/23/18 [History Last Taken 03/23/19 12:00] losartan 100 mg tablet 100 mg PO DAILY 03/24/19 [Rx Last Taken Unknown] carbamazepine 400 mg tablet,extended release,12 hr (Tegretol XR) 400 mg PO BID seizures 10/28/21 [History Last Taken 10/28/21 08:00] Allergy/AdvReac Type Severity Reaction Status Date / Time No Known Allergies Allergy Verified 10/28/21 09:32 Family History (Updated 10/28/21 @ 15:53 by Chely Carrera NP, ANIMAL FEEDER-C) Mother Cancer Father Cancer Surgical History (Updated 10/28/21 @ 15:53 by Chely Carrera NP, ANIMAL FEEDER-C) History of tonsillectomy S/P cholecystectomy Social History (Updated 10/28/21 @ 15:54 by Chely Carrera NP, ANIMAL FEEDER-C) household members: spouse Smoking Status: Never smoker alcohol intake: never substance use type: does not use ROS Constitutional Constitutional: Reports fatigue and weakness; Denies change in weight, chills or fever(s) Cardiovascular Cardiovascular: Reports lightheadedness; Denies chest pain, edema, palpitations or syncope Respiratory/Chest Respiratory/Chest: Denies cough, dyspnea, productive cough, shortness of breath at rest, shortness of breath with exertion or wheezing Gastrointestinal Gastrointestinal: Denies abdominal pain, constipation, diarrhea, nausea or vomiting Genitourinary Genitourinary: Denies burning urination, difficulty urinating, dysuria, hematuria, urinary frequency, urinary incontinence or urinary urgency Musculoskeletal Musculoskeletal: Denies back pain, joint pain or muscle weakness Integumentary Integumentary: Denies erythema, lesions, rash or wounds Neurologic Neurologic: Reports seizures; Denies abnormal speech, confusion, dizziness, focal weakness, numbness, paresthesias, seizure-like activity or syncope Psychiatric Psychiatric: Denies anxiety or depression Hematologic/Lymphatic Hematologic/Lymphatic: Denies anemia, easy bleeding or easy bruising Allergic/Immunologic Allergic/Immunologic: Denies hives or asthma Vital Signs Vital Signs Vital Signs: 10/28/21 09:34 10/28/21 12:03 10/28/21 12:48 Temperature 97.3 F L 97.6 F L 97.9 F Temperature Source Temporal Temporal Oral Pulse Rate 87 66 63 Respiratory Rate 17 16 16 Blood Pressure 92/75 142/52 H 136/55 H Blood Pressure Mean 80 82 82 Blood Pressure Source Monitor Blood Pressure Position Semi-Fowlers Blood Pressure Location Right Arm Pulse Ox 96 97 99 Oxygen Delivery Method Room Air Room Air Room Air 10/28/21 12:54 Temperature Temperature Source Pulse Rate 62 Respiratory Rate Blood Pressure Blood Pressure Mean Blood Pressure Source Blood Pressure Position Blood Pressure Location Pulse Ox Oxygen Delivery Method Weight Weight: 199 lb 8.293 oz Body Mass Index (BMI) 30.3 Physical Exam Const alert, oriented x3 and no apparent distress Orientation / Consciousness: awake, oriented to person, oriented to place and oriented to time HEENT normocephalic and moist oral mucous membranes Eyes PERRL, EOMs intact bilaterally and conjunctivae normal Neck no lymphadenopathy Resp normal respiratory effort and clear to auscultation bilaterally Cardio regular rate, regular rhythm and no murmurs Peripheral Pulses: pulses 2+ throughout GI normal to inspection, nondistended, normoactive bowel sounds, non-tender and non-distended Extremity normal to inspection Skin no rashes or lesions noted Lesions: no lesions Rashes: no rashes Trauma: no lacerations or abrasions Neuro CN's II-XII intact bilaterally, no focal motor deficits, no sensory deficits noted and deep tendon reflexes 2+ bilaterally Psych mental status grossly normal and affect normal Results Lab / Micro Data Result Diagrams: 10/28/21 10:15 10/28/21 10:15 Labs: Laboratory Results - last 24 hr 10/28/21 10:15: WBC 5.5, RBC 3.46 L, Hgb 10.5 L, Hct 28.3 L, MCV 81.8, MCH 30.3, MCHC 37.1 H, RDW Std Deviation 34.7 L, RDW Coeff of Pennie 11.8, Plt Count 250, MPV 8.7, Immature Gran % (Auto) 1.300 H, Neut % (Auto) 85.3 H, Lymph % (Auto) 8.6 L, [place] % (Auto) 4.6, Eos % (Auto) 0.0, Baso % (Auto) 0.2, Absolute Neuts (auto) 4.7, Absolute Lymphs (auto) 0.47 L, Nucleated RBC % 0, Differential Comment SCANNED, Hypochromasia 2+ 10/28/21 10:15: Sodium 123 L, Potassium 3.6, Chloride 89 L, Carbon Dioxide 26.0, Anion Gap 8, BUN 5 L, Creatinine 0.61, Estim Creat Clear Calc 48.28, Est GFR (MDRD) Af Amer 122, Est GFR (MDRD) Non-Af 101, BUN/Creatinine Ratio 8.2 L, Glucose 122 H, Calcium 8.8, Total Bilirubin 0.40, AST 22, ALT 23, Alkaline Ph osphatase 103, Total Protein 6.8, Albumin 3.3, Globulin 3.5, Albumin/Globulin Ratio 0.9 10/28/21 10:15: Carbamazepine 8.[address] 10/28/21 11:56 IMPRESSION: Normal unenhanced and enhanced CT scan of the brain. Electronically Signed: Gabriel Linton MD at 12:28 EDT , Assessment & Plan Assessment/Plan (1) Acute hyponatremia: (2) Generalized convulsive seizures: PLAN: Plan 1. Breakthrough generalized tonic-clonic seizure-on Tegretol at baseline. No missed doses. Last reported seizure 5 years ago. Suspects breakthrough seizures related to hyponatremia. Seizure precautions. Tegretol level therapeutic. Brain CT normal 2. Acute hyponatremia-likely hypovolemic related to bowel prep. IV fluids. Trend BMP. 3. Hypertension-stable, continue amlodipine, losartan. 4. Depression-continue citalopram. 5. Rheumatoid arthritis-on hydroxychloroquine. DVT prophylaxis- SCDs This patient was seen by DEJAH Mcneill under the supervision of Dr. Vazquez. Time spent examining patient, reviewing data and subsequent management of care: 25 minutes Documented by User: Dr. Bryn De Jesus DO 10/28/21 17:34 HPI - General General Date of Admission: 10/28/21 [facility] Medical History (Updated 10/28/21 @ 11:[address] Greg Burgess MD) Epilepsy Hyperlipidemia Hypertension Seizures Vertigo Home Medications citalopram 20 mg tablet 20 mg PO DAILY depression 03/25/13 [History Last Taken 03/23/19 12:00] hydroxychloroquine 200 mg tablet 200 mg PO BID RA 03/25/13 [History Last Taken 03/23/19 18:00] triamcinolone acetonide 55 mcg nasal spray aerosol (Nasal Allergy) 1 spray DAILY PRN Congestion 03/25/13 [History Last Taken 03/21/19] amlodipine 5 mg tablet 10 mg PO DAILY blood pressure 10/23/18 [History Last Taken 03/23/19 12:00] losartan 100 mg tablet 100 mg PO DAILY 03/24/19 [Rx Last Taken Unknown] carbamazepine 400 mg tablet,extended release,12 hr (Tegretol XR) 400 mg PO BID seizures 10/28/21 [History Last Taken 10/28/21 08:00] Allergy/AdvReac Type Severity Reaction Status Date / Time No Known Allergies Allergy Verified 10/28/21 09:32 Family History (Updated 10/28/21 @ 15:53 by Chely Carrera ANIMAL FEEDER, ANIMAL FEEDER-C) Mother Cancer Father Cancer Surgical History (Updated 10/28/21 @ 15:53 by Chely Carrera ANIMAL FEEDER, ANIMAL FEEDER-C) History of tonsillectomy S/P cholecystectomy Social History (Updated 10/28/21 @ 15:54 by Chely Carrera ANIMAL FEEDER, ANIMAL FEEDER-C) household members: spouse Smoking Status: Never smoker alcohol intake: never substance use type: does not use Results Lab / Micro Data Result Diagrams: 10/28/21 10:15 10/28/21 10:15 Assessment & Plan Assessment/Plan (1) Acute hyponatremia: (2) Generalized convulsive seizures: Charges/Coding Addendum Addendum: Patient was seen and examined independently of Chely Carrera today, he was seen in the emergency room today after having 2 seizures over the last 24 hours- 1 last night, and 1 earlier this morning. Patient has a history of seizure disorder, her last seizure was approximately 5 years ago, she states that her first seizure occurred about 9 years ago. Patient does not see a neurologist on an active basis, she gets her seizure medications from her PCP. Work-up in the emergency room showed her to have a slightly low sodium, patient had received a colonoscopy this week due to surveillance of colon polyps, it is possible the prep may have affected her sodium. On examination she appeared in good health and spirits, she does not appear to be in any distress. Vital signs as documented. Skin warm and dry and without overt rashes. Neck without JVD, thyroid appears normal, trachea is midline, neck is supple. Lungs clear, normal air movement was noted. Heart exam notable for regular rhythm, normal sounds and absence of murmurs, rubs or gallops. Abdomen unremarkable and without evidence of organomegaly, masses, or abdominal aortic enlargement, bowel sounds are present in all 4 quadrants, no abdominal tend erness was noted. Extremities nonedematous, no cyanosis was noted, no clubbing was noted. Neuro: Cranial nerves II through XII are grossly intact, no focal motor deficits were noted, sensation to light touch and pinprick is intact, motor exam 5/5 throughout. Psych: Patient is alert and oriented x3, she does not appear anxious or depressed, she does not appear agitated. Impression: #1 recurrent seizures-possibly secondary to hyponatremia, patient will be placed into observation status on PCU, she will receive IV normal saline, labs will be monitored. I do not think is necessary to add another seizure medication at this time. I ordered a CT of the brain with and without contrast-there is no evidence of metastatic lesions or acute pathology. #2 essential hypertension-patient will remain on her present medications #3 hyperlipidemia-patient will remain on her statin #4 hyponatremia-again patient will be given normal saline and labs will be monitored. #5 chronic anemia-etiology unclear, patient was iron deficient in 2019, I have elected to repeat her iron studies at this time. I have reviewed Chely Carrera's history and physical including her medical assessment and plan of care and with the above additions endorse it. Total clinical time spent by myself addressing the patient's medical issues, reviewing the data, and collaborating with patient's care team: 50-minutes Visit Charges OBSV E&M: 57411 Initial observation care L3
[2021-10-28] MEDS: 0.9% Normal Saline 1,000 ML 125 ML IV (16:27)
[2021-10-28] MEDS: Hydroxychloroquine 200 MG Tablet PO (16:33)
[2021-10-28] MEDS: carBAMazepine 400 MG TAB.SR.12H PO (21:26)
[2021-10-29] MEDS: 0.9% Normal Saline 1,000 ML 125 ML IV ×2 (00:34→08:44)
[2021-10-29 02:58] VITALS: PULSE 60
[2021-10-29 03:02] VITALS: BP 121/88; PULSE 64; RESP 18; TEMP 36.5; O2SAT 98
[2021-10-29 06:04] LABS: Anion Gap 4 (5-15); BUN 4 mg/dL (7-18); Calcium,Total 8.1 mg/dL (8.5-10.1); Chloride 102 mmol/L (98-107); EST Glomerular Filtration Rate 127 mL/min (>60); Est Glom Filt Rate - Afr Amer 154 mL/min (>60); Estimated Creatinine Clearance 48.28 ml/min; Glucose 101 mg/dL (74-106); Sodium Level 134 mmol/L (136-145)
[2021-10-29 06:59] VITALS: PULSE 62
[2021-10-29] MEDS: Hydroxychloroquine 200 MG Tablet PO (08:49)
[2021-10-29] MEDS: Losartan Potassium 100 MG Tablet PO (08:49)
[2021-10-29] MEDS: carBAMazepine 400 MG TAB.SR.12H PO (08:49)
[2021-10-29] MEDS: amLODIPine 10 MG Tablet PO (08:49)
[2021-10-29] MEDS: Potassium Chloride Oral Tablet 20 MEQ PO (08:49)
[2021-10-29] MEDS: Citalopram 20 MG Tablet PO (08:49)
[2021-10-29] MEDS: Potassium Chloride Oral Tablet 20 MEQ 40 MEQ PO (08:49)
[2021-10-29 09:05] VITALS: BP 144/66; PULSE 63; RESP 16; TEMP 36.8; O2SAT 96
--- NOTE | 2021-10-29 10:18 | DCINST_ITS ---
Discharge Instructions Diet Discharge Diet: No restrictions Activity Discharge Activity: Return to Normal Activity Dressing / Incision Call your doctor if you observe: Shortness of breath, Dizziness and Chest pain Follow Up Care Test Results: Test results from this visit will be discussed in further detail at your follow- up appointment, if applicable. Discharge Plan Admission Admit Date/Time: 10/28/21 11:54 Primary Reason for Your Visit: Seizure, low sodium Attending Provider: Bryn De Jesus Primary Care Provider: Estrellita Cortez NP Discharge Orders/Prescriptions Prescriptions: Continued citalopram 20 MG tablet 20 mg PO DAILY Label Comments: mood triamcinolone acetonide [Nasal Allergy] 1 SPRAY aerosol,spray 1 spray NASAL DAILY PRN (Reason: Congestion) Label Comments: allergies hydroxychloroquine 200 MG tablet 200 mg PO BID Label Comments: antiplatelet amlodipine 5 MG tablet 10 mg PO DAILY Label Comments: TAKE 1 TABLET BY MOUTH DAILY losartan 100 MG tablet 100 mg PO DAILY 0RF carbamazepine [Tegretol XR] 400 mg tablet extended release 12 hr 400 mg PO BID Referrals / Follow Up: Estrellita Cortez NP, SAFETY SCIENTIST-C [Primary Care Provider] - In 1 Week Chip Schmid MD [Med Staff - Active Staff] - See Referral Note (Call for follow up) Disposition Disposition (needs filled in before D/C Order can be placed): Home, Self Care
--- NOTE | 2021-10-29 10:27 | PCM.DC.SUM ---
Documented by User: Chely Carrera NP, TRAINS SERVICE CONDUCTOR-C 10/29/21 10:33 Providers Date of Admission: 10/28/21 Date of Discharge: 10/29/21 Primary Care Physician: SHIIRN FaustinC Reason For Visit: ACUTE HYPONATREMIA Diagnosis Discharge Diagnosis (1) Acute hyponatremia: Status: Acute Code(s): E87.1 - Hypo-osmolality and hyponatremia (2) Generalized convulsive seizures: Status: Acute Code(s): R56.9 - Unspecified convulsions Medications at Discharge Home Medications citalopram 20 mg tablet 20 mg PO DAILY depression 03/25/13 hydroxychloroquine 200 mg tablet 200 mg PO BID RA 03/25/13 triamcinolone acetonide 55 mcg nasal spray aerosol (Nasal Allergy) 1 spray DAILY PRN Congestion 03/25/13 amlodipine 5 mg tablet 10 mg PO DAILY blood pressure 10/23/18 losartan 100 mg tablet 100 mg PO DAILY 03/24/19 carbamazepine 400 mg tablet,extended release,12 hr (Tegretol XR) 400 mg PO BID seizures 10/28/21 Hospital Course Operations None Procedures None Summary of Care Provided Hospital Course: Patient is a 76-year-old female admitted 10/28/2021 due to breakthrough seizure. 1.? Breakthrough generalized tonic-clonic seizure-on Tegretol at baseline.? No missed doses.? Last reported seizure 5 years ago.? Suspect breakthrough seizures related to hyponatremia.? Tegretol level therapeutic.? Brain CT normal. No further seizure activity during admission. Sodium corrected. Follow up with PCP in one week. 2.? Acute hyponatremia- hypovolemic related to bowel prep.? Quickly improved with IV fluids. Sodium on admission 123, sodium at discharge 134. 3. Hypertension-stable, continue amlodipine, losartan. 4. Depression-continue citalopram. 5. Rheumatoid arthritis-on hydroxychloroquine. 6. Mild hypokalemia-replaced per protocol. Physical Exam Const alert, oriented x3 and no apparent distress Orientation / Consciousness: awake, oriented to person, oriented to place and oriented to time HEENT normocephalic and moist oral mucous membranes Eyes PERRL, EOMs intact bilaterally and conjunctivae normal Neck no lymphadenopathy Resp normal respiratory effort and clear to auscultation bilaterally Cardio regular rate, regular rhythm and no murmurs Peripheral Pulses: pulses 2+ throughout GI normal to inspection, nondistended, normoactive bowel sounds, non-tender and non-distended Extremity normal to inspection Skin no rashes or lesions noted Lesions: no lesions Rashes: no rashes Trauma: no lacerations or abrasions Neuro CN's II-XII intact bilaterally, no focal motor deficits, no sensory deficits noted and deep tendon reflexes 2+ bilaterally Psych mental status grossly normal and affect normal Patient seen and examined prior to discharge. Physical assessment as noted above. Patient is stable for discharge with follow up recommendations as noted above. This patient was seen by DEJAH Mcneill under the supervision of Dr. De Jesus. Time spent examining patient, reviewing data and subsequent management of care: 20 minutes Weight / BMI Weight Weight: 198 lb 3.129 oz Body Mass Index (BMI) 30.3 ABG / Lab / Microbiology Data Result Diagrams: 10/28/21 10:15 10/29/21 04:48 Laboratory: Laboratory Results - last 24 hr 10/28/21 10:15: WBC 5.5, RBC 3.46 L, Hgb 10.5 L, Hct 28.3 L, MCV 81.8, MCH 30.3, MCHC 37.1 H, RDW Std Deviation 34.7 L, RDW Coeff of Pennie 11.8, Plt Count 250, MPV 8.7, Immature Gran % (Auto) 1.300 H, Neut % (Auto) 85.3 H, Lymph % (Auto) 8.6 L, [place] % (Auto) 4.6, Eos % (Auto) 0.0, Baso % (Auto) 0.2, Absolute Neuts (auto) 4.7, Absolute Lymphs (auto) 0.47 L, Nucleated RBC % 0, Differential Comment SCANNED, Hypochromasia 2+ 10/28/21 10:15: Sodium 123 L, Potassium 3.6, Chloride 89 L, Carbon Dioxide 26.0, Anion Gap 8, BUN 5 L, Creatinine 0.61, Estim Creat Clear Calc 48.28, Est GFR (MDRD) Af Amer 122, Est GFR (MDRD) Non-Af 101, BUN/Creatinine Ratio 8.2 L, Glucose 122 H, Calcium 8.8, Total Bilirubin 0.40, AST 22, ALT 23, Alkaline Phosphatase 103, Total Protein 6.8, Albumin 3.3, Globulin 3.5, Albumin/Globulin Ratio 0.9 10/28/21 10:15: Carbamazepine 8.7 10/29/21 04:48: Sodium 134 L, Potassium 3.0 L, Chloride 102, Carbon Dioxide 28.0, Anion Gap 4 L, BUN 4 L, Creatinine 0.50 L, Estim Creat Clear Calc 48.28, Est GFR (MDRD) Af Amer 154, Est GFR (MDRD) Non-Af 127, BUN/Creatinine Ratio 8.0 L, Glucose 101, Calcium 8.1 L Radiography Diagnostic Testing: Radiology Impression Brain CT 10/28/21 11:56 IMPRESSION: Normal unenhanced and enhanced CT scan of the brain. Electronically Signed: Gabriel Linton MD at 12:28 EDT , D/C Instructions Discharge Diet: No restrictions Call your doctor if you observe: Shortness of breath, Dizziness and Chest pain Meaningful Use Info Meaningful Use Diagnoses (Choose all that apply): None applicable Discharge Plan Admission Admit Date/Time: 10/28/21 11:54 Primary Reason for Your Visit: Seizure, low sodium Attending Provider: Bryn De Jesus Primary Care Provider: Estrellita Cortez NP Discharge Orders/Prescriptions Prescriptions: Continued citalopram 20 MG tablet 20 mg PO DAILY Label Comments: mood triamcinolone acetonide [Nasal Allergy] 1 SPRAY aerosol,spray 1 spray NASAL DAILY PRN (Reason: Congestion) Label Comments: allergies hydroxychloroquine 200 MG tablet 200 mg PO BID Label Comments: antiplatelet amlodipine 5 MG tablet 10 mg PO DAILY Label Comments: TAKE 1 TABLET BY MOUTH DAILY losartan 100 MG tablet 100 mg PO DAILY 0RF carbamazepine [Tegretol XR] 400 mg tablet extended release 12 hr 400 mg PO BID Referrals / Follow Up: Chip Schmid MD [Med Staff - Active Staff] - 11/01/21 2:40 pm (Call for follow up) Estrellita Cortez NP, TRAINS SERVICE CONDUCTOR-C [Primary Care Provider] - In 1 Week Disposition Disposition (needs filled in before D/C Order can be placed): Home, Self Care Documented by User: Dr. Bryn De Jesus DO 10/29/21 16:45 Providers Date of Admission: 10/28/21 Reason For Visit: ACUTE HYPONATREMIA Diagnosis Discharge Diagnosis (1) Acute hyponatremia: Status: Acute Code(s): E87.1 - Hypo-osmolality and hyponatremia (2) Generalized convulsive seizures: Status: Acute Code(s): R56.9 - Unspecified convulsions Medications at Discharge Home Medications citalopram 20 mg tablet 20 mg PO DAILY depression 03/25/13 hydroxychloroquine 200 mg tablet 200 mg PO BID RA 03/25/13 triamcinolone acetonide 55 mcg nasal spray aerosol (Nasal Allergy) 1 spray DAILY PRN Congestion 03/25/13 amlodipine 5 mg tablet 10 mg PO DAILY blood pressure 10/23/18 losartan 100 mg tablet 100 mg PO DAILY 03/24/19 carbamazepine 400 mg tablet,extended release,12 hr (Tegretol XR) 400 mg PO BID seizures 10/28/21 ABG / Lab / Microbiology Data Result Diagrams: 10/28/21 10:15 10/29/21 04:48 Discharge Plan Admission Admit Date/Time: 10/28/21 11:54 Primary Reason for Your Visit: Seizure, low sodium Attending Provider: Bryn De Jesus Primary Care Provider: Estrellita Cortez NP Discharge Orders/Prescriptions Prescriptions: Continued citalopram 20 MG tablet 20 mg PO DAILY Label Comments: mood triamcinolone acetonide [Nasal Allergy] 1 SPRAY aerosol,spray 1 spray NASAL DAILY PRN (Reason: Congestion) Label Comments: allergies hydroxychloroquine 200 MG tablet 200 mg PO BID Label Comments: antiplatelet amlodipine 5 MG tablet 10 mg PO DAILY Label Comments: TAKE 1 TABLET BY MOUTH DAILY losartan 100 MG tablet 100 mg PO DAILY 0RF carbamazepine [Tegretol XR] 400 mg tablet extended release 12 hr 400 mg PO BID Referrals / Follow Up: Chip Schmid MD [Med Staff - Active Staff] - 11/01/21 2:40 pm (Call for follow up) Estrellita Cortez NP, TRAINS SERVICE CONDUCTOR-C [Primary Care Provider] - In 1 Week Disposition Disposition (needs filled in before D/C Order can be placed): Home, Self Care Charges/Coding Addendum Addendum: Patient was seen and examined independently of Chely Carrera today, she has had no seizures since she has been in the hospital, her sodium this morning was 134, potassium was low at 3-I give the patient supplemental potassium today. Talk to her today at the time my examination. On examination she appeared in good health and spirits, she does not appear to be in any distress. Vital signs as documented. Skin warm and dry and without overt rashes. Neck without JVD, thyroid appears normal, trachea is midline, neck is supple. Lungs clear, normal air movement was noted. Heart exam notable for regular rhythm, normal sounds and absence of murmurs, rubs or gallops. Abdomen unremarkable and without evidence of organomegaly, masses, or abdominal aortic enlargement, bowel sounds are present in all 4 quadrants, no abdominal tenderness was noted. Extremities nonedematous, no cyanosis was noted, no clubbing was noted. Neuro: Cranial nerves II through XII are grossly intact, no focal motor deficits were noted, sensation to light touch and pinprick is intact, motor exam 5/5 throughout. Psych: Patient is alert and oriented x3, she does not appear anxious or depressed, she does not appear agitated. #1 recurrent seizure on a backdrop of chronic seizure disorder-this appears stable at this time, patient is stable for discharge home #2 hyponatremia-etiology unclear, possibly due to colon prep for colonoscopy #3 essential hypertension #4 hyperlipidemia #5 chronic anemia-etiology unclear-I did not order a serum iron or TIBC while the patient was hospitalized here, patient will be contacted and instructed to get iron studies done as an outpatient by her PCP. I have reviewed Chely Carrera's discharge summary including her medical assessment and plan of care and endorse it. Total clinical time spent by myself addressing the patient's medical issues, reviewing the medical data, and collaborating with patient's care team: 30 minutes Visit Charges OBSV E&M: 80908 Observation care discharge
== END 2021-10-29 10:19 | disposition home or self-care (01) ==
LOC: ED 11:50 → PCU 12:13
PROVIDERS: Admitting Provider Internal Medicine; Emergency Provider Emergency Medicine; PCP Nurse Practitioner; Visit Provider Internal Medicine
DX: G40.909 Epilepsy, unspecified, not intractable, without status epilepticus (principal); M06.9 Rheumatoid arthritis, unspecified; E87.1 Hypo-osmolality and hyponatremia; I10 Essential (primary) hypertension; E78.5 Hyperlipidemia, unspecified; D64.9 Anemia, unspecified; E87.6 Hypokalemia; F32.A Depression, unspecified; Z79.899 Other long term (current) drug therapy
CPT/HCPCS: 36415; 70470; 80048; 80053; 80156; 85025; 96360; 96361; 99218; 99285; J7030; Q9967; G0378

== ENCOUNTER → 2022-01-04 | Outpatient (CLI) | payer MEDICARE, SELFPAY ==
[2022-01-04 11:52] LABS: Absolute Lymphocyte Count 1.31 X10^3/uL (0.83-4.51); Absolute Neutrophil Count 2.9 X10^3/uL (2.0-7.7); Basophil# 0.03 X10^3/uL; Basophil% 0.6 % (0-1); Eosinophil# 0.11 X10^3/uL; Eosinophils% 2.3 % (0-5); Hematocrit 30.4 % (37-47); Hemoglobin 10.5 g/dL (12.0-15.0); Lymphocyte # 1.31 X10^3/ul (0.83-4.51); Lymphocyte % 27.5 % (19-41); Mean Corp Hgb Conc 34.5 g/dL (32-36); Mean Corpuscular Hgb 29.9 pg (27.0-32.0); Mean Corpuscular Volume 86.6 fL (81-99); Mean Platelet Vol. 9.3 fl (6.2-12.0); Monocyte# 0.42 X10^3/uL; Monocyte% 8.8 % (0-10); NRBC Flagged by Analyzer 0 % (0-5); Neutrophil # 2.86 X10^3/uL (2.7-7.7); Neutrophil % 60.2 % (47-70); Platelet Count 269 K/mm3 (150-450); RBC Distribution Width CV 12.3 % (11.6-14.6); RBC Distribution Width SD 39.3 fl (35.1-43.9); Red Blood Count 3.51 M/mm3 (4.2-5.4); White Blood Count 4.8 K/mm3 (4.4-11.0)
[2022-01-04 12:42] LABS: ALB/GLOB Ratio 0.9 RATIO (0.9-2.4); AST(SGOT) 16 U/L (15-37); Alanine Aminotransfer ALT/SGPT 24 U/L (13-56); Albumin, Serum 3.3 g/dL (3.2-5.0); Alkaline Phosphatase 109 U/L (45-117); Anion Gap 7 (5-15); BUN 11 mg/dL (7-18); BUN/Creat Ratio 19.1 RATIO (10-20); Calcium,Total 8.8 mg/dL (8.5-10.1); Chloride 100 mmol/L (98-107); Creatinine, Serum 0.58 mg/dL (0.55-1.02); EST Glomerular Filtration Rate 108 mL/min (>60); Est Glom Filt Rate - Afr Amer 131 mL/min (>60); Globulin 3.5 g/dL (2.2-4.2); Glucose 92 mg/dL (74-106); Potassium 4.6 mmol/L (3.5-5.1); Protein, Total 6.8 g/dL (6.4-8.2); Sodium Level 136 mmol/L (136-145)
== END | disposition home or self-care (01) ==
PROVIDERS: PCP Nurse Practitioner Family; Referring Provider Internal Medicine Rheumatology; Visit Provider Internal Medicine Rheumatology
DX: M05.70 Rheumatoid arthritis with rheumatoid factor of unspecified site without organ or systems involvement (principal); M35.00 Sjogren syndrome, unspecified; G40.802 Other epilepsy, not intractable, without status epilepticus; M65.331 Trigger finger, right middle finger; M65.332 Trigger finger, left middle finger; I10 Essential (primary) hypertension; M47.897 Other spondylosis, lumbosacral region
CPT/HCPCS: 36415; 80053; 85025

== ENCOUNTER → 2022-05-02 | Outpatient (CLI) | payer MEDICARE, SELFPAY ==
[2022-05-02 12:11] LABS: Absolute Lymphocyte Count 0.72 X10^3/uL (0.83-4.51); Absolute Neutrophil Count 5.3 X10^3/uL (2.0-7.7); Basophil# 0.02 X10^3/uL; Basophil% 0.3 % (0-1); Eosinophil# 0.03 X10^3/uL; Eosinophils% 0.5 % (0-5); Hematocrit 32.2 % (37-47); Hemoglobin 11.1 g/dL (12.0-15.0); Lymphocyte # 0.72 X10^3/ul (0.83-4.51); Lymphocyte % 11.1 % (19-41); Mean Corp Hgb Conc 34.5 g/dL (32-36); Mean Corpuscular Hgb 29.8 pg (27.0-32.0); Mean Corpuscular Volume 86.3 fL (81-99); Mean Platelet Vol. 9.5 fl (6.2-12.0); Monocyte# 0.43 X10^3/uL; Monocyte% 6.6 % (0-10); NRBC Flagged by Analyzer 0 % (0-5); Neutrophil # 5.26 X10^3/uL (2.7-7.7); Neutrophil % 81.2 % (47-70); Platelet Count 241 K/mm3 (150-450); RBC Distribution Width CV 12.5 % (11.6-14.6); RBC Distribution Width SD 39.3 fl (35.1-43.9); Red Blood Count 3.73 M/mm3 (4.2-5.4); White Blood Count 6.5 K/mm3 (4.4-11.0)
== END | disposition home or self-care (01) ==
LOC: LABSPEC 11:52
PROVIDERS: PCP Nurse Practitioner Family; Referring Provider Nurse Practitioner Family; Visit Provider Nurse Practitioner Family
DX: R05.9 Cough, unspecified (principal)
CPT/HCPCS: 85025

== ENCOUNTER → 2022-07-13 | Outpatient (CLI) | payer MEDICARE, SELFPAY ==
[2022-07-13 10:37] LABS: Absolute Lymphocyte Count 1.24 X10^3/uL (0.83-4.51); Basophil# 0.03 X10^3/uL; Basophil% 0.6 % (0-1); Eosinophil# 0.06 X10^3/uL; Eosinophils% 1.3 % (0-5); Hematocrit 32.3 % (37-47); Hemoglobin 10.3 g/dL (12.0-15.0); Lymphocyte # 1.24 X10^3/ul (0.83-4.51); Lymphocyte % 26.1 % (19-41); Mean Corp Hgb Conc 31.9 g/dL (32-36); Mean Corpuscular Hgb 28.8 pg (27.0-32.0); Mean Corpuscular Volume 90.2 fL (81-99); Mean Platelet Vol. 9.6 fl (6.2-12.0); Monocyte# 0.45 X10^3/uL; Monocyte% 9.5 % (0-10); NRBC Flagged by Analyzer 0 % (0-5); Neutrophil # 2.96 X10^3/uL (2.7-7.7); Neutrophil % 62.3 % (47-70); Platelet Count 284 K/mm3 (150-450); RBC Distribution Width CV 12.8 % (11.6-14.6); RBC Distribution Width SD 42.4 fl (35.1-43.9); Red Blood Count 3.58 M/mm3 (4.2-5.4); White Blood Count 4.8 K/mm3 (4.4-11.0)
[2022-07-13 10:47] LABS: ALB/GLOB Ratio 0.8 RATIO (0.9-2.4); AST(SGOT) 18 U/L (15-37); Alanine Aminotransfer ALT/SGPT 20 U/L (13-56); Albumin, Serum 3.2 g/dL (3.2-5.0); Alkaline Phosphatase 98 U/L (45-117); Anion Gap 7 (5-15); BUN 17 mg/dL (7-18); BUN/Creat Ratio 28.6 RATIO (10-20); Calcium,Total 8.9 mg/dL (8.5-10.1); Chloride 103 mmol/L (98-107); EST Glomerular Filtration Rate 104 mL/min (>60); Est Glom Filt Rate - Afr Amer 126 mL/min (>60); Globulin 3.8 g/dL (2.2-4.2); Glucose 95 mg/dL (74-106); Potassium 3.9 mmol/L (3.5-5.1); Sodium Level 139 mmol/L (136-145)
== END | disposition home or self-care (01) ==
LOC: LAB 09:14
PROVIDERS: PCP Nurse Practitioner Family; Referring Provider Internal Medicine Rheumatology; Visit Provider Internal Medicine Rheumatology
DX: M05.70 Rheumatoid arthritis with rheumatoid factor of unspecified site without organ or systems involvement (principal); M35.00 Sjogren syndrome, unspecified; G40.802 Other epilepsy, not intractable, without status epilepticus; M65.331 Trigger finger, right middle finger; M65.332 Trigger finger, left middle finger; I10 Essential (primary) hypertension; M47.897 Other spondylosis, lumbosacral region
CPT/HCPCS: 36415; 80053; 85025

== ENCOUNTER → 2022-10-19 | Outpatient (CLI) | payer MEDICARE, SELFPAY ==
--- NOTE | 2022-10-19 08:33 | BI_ITS ---
MAMMOGRAPHY - BILATERAL SCREENING REASON FOR EXAM: Female, 77 years old. Routine annual screening examination. PERTINENT HISTORY: Aunt with breast cancer. TECHNIQUE: Digital bilateral breast chino (3D mammographic acquisition) in the CC and MLO projections. 2-D mediolateral oblique (MLO) and craniocaudad (CC) views of both breasts were obtained. CAD: Full Field Digital Mammography with Computer Added Detection was performed. COMPARISON: Comparison is made with prior study October 18, 2021 and October 15, 2020. FINDINGS: Breast Composition: There are scattered areas of fibroglandular density. There are no dominant masses or suspicious calcifications. Stable 4.6 mm well-defined nodule in the axillary region of the left breast suggestive of a small lymph node. No other significant abnormalities are identified. There has been no significant change since the prior study. BI/SCRN MAMM (CAD)W/CHINO BILAT IMPRESSION: Stable bilateral screening mammogram. Yearly follow-up mammogram recommended. (A) ASSESSMENT CATEGORY: BIRADS Category 2: Benign. A letter regarding these results will be sent to the patient by the facility within 30 days. Approximately 10% of breast cancers are not detected by mammography. A normal mammogram should not delay biopsy of a clinically suspicious abnormality. [id number] Electronically Signed: Gabriel Linton MD at 9:45 EDT ,
== END | disposition home or self-care (01) ==
LOC: OPBI 08:32
PROVIDERS: PCP Nurse Practitioner Family; Referring Provider Nurse Practitioner Family; Visit Provider Nurse Practitioner Family
DX: Z12.31 Encounter for screening mammogram for malignant neoplasm of breast (principal)
CPT/HCPCS: 77063; 77067

== ENCOUNTER → 2022-10-25 | Outpatient (CLI) | payer MEDICARE, SELFPAY ==
--- NOTE | 2022-10-25 13:10 | RAD_ITS ---
INDICATION: SOB -- -- follow up right upper lobe nodule seen on CXR 04/2022 EXAMINATION/TECHNIQUE: X-RAY - XR Chest 2 Views COMPARISON: Prior studies dated: November 01, 2017, October 23, 2018 and May 02, 2022 FINDINGS: LINES/DEVICES: None. LUNGS: No consolidation, edema or effusion. No pneumothorax. MEDIASTINUM AND CARDIOVASCULAR STRUCTURES: Cardiac silhouette not enlarged. Central airways and mediastinal contour are unremarkable. BONES AND SOFT TISSUES: Unremarkable. RAD/Chest PA and Lateral IMPRESSION: No radiographic evidence of acute cardiopulmonary disease. Electronically Signed: Alexus Padilla MD at 8:34 EDT ,
== END | disposition home or self-care (01) ==
LOC: RAD 13:05
PROVIDERS: PCP Nurse Practitioner Family; Referring Provider Internal Medicine Pulmonary Disease; Visit Provider Internal Medicine Pulmonary Disease
DX: R06.02 Shortness of breath (principal)
CPT/HCPCS: 71046

== ENCOUNTER → 2023-01-05 | Outpatient (CLI) | payer MEDICARE, SELFPAY ==
[2023-01-05 10:56] LABS: Absolute Lymphocyte Count 1.48 X10^3/uL (0.83-4.51); Absolute Neutrophil Count 3.2 X10^3/uL (2.0-7.7); Basophil# 0.03 X10^3/uL; Basophil% 0.6 % (0-1); Eosinophil# 0.07 X10^3/uL; Eosinophils% 1.3 % (0-5); Hematocrit 31.5 % (37-47); Hemoglobin 10.2 g/dL (12.0-15.0); Lymphocyte # 1.48 X10^3/ul (0.83-4.51); Lymphocyte % 28.2 % (19-41); Mean Corp Hgb Conc 32.4 g/dL (32-36); Mean Corpuscular Hgb 28.7 pg (27.0-32.0); Mean Corpuscular Volume 88.5 fL (81-99); Monocyte# 0.46 X10^3/uL; Monocyte% 8.8 % (0-10); NRBC Flagged by Analyzer 0 % (0-5); Neutrophil # 3.18 X10^3/uL (2.7-7.7); Neutrophil % 60.5 % (47-70); Platelet Count 303 K/mm3 (150-450); RBC Distribution Width CV 12.5 % (11.6-14.6); Red Blood Count 3.56 M/mm3 (4.2-5.4); White Blood Count 5.3 K/mm3 (4.4-11.0)
[2023-01-05 11:23] LABS: ALB/GLOB Ratio 0.9 RATIO (0.9-2.4); AST(SGOT) 19 U/L (15-37); Alanine Aminotransfer ALT/SGPT 24 U/L (13-56); Albumin, Serum 3.5 g/dL (3.2-5.0); Alkaline Phosphatase 83 U/L (45-117); Anion Gap 5 (5-15); BUN 12 mg/dL (7-18); BUN/Creat Ratio 16.6 RATIO (10-20); Chloride 101 mmol/L (98-107); Creatinine, Serum 0.72 mg/dL (0.55-1.02); EST Glomerular Filtration Rate 83 mL/min (>60); Est Glom Filt Rate - Afr Amer 100 mL/min (>60); Globulin 3.7 g/dL (2.2-4.2); Glucose 96 mg/dL (74-106); Potassium 4.1 mmol/L (3.5-5.1); Protein, Total 7.2 g/dL (6.4-8.2); Sodium Level 136 mmol/L (136-145)
== END | disposition home or self-care (01) ==
LOC: LAB 10:42
PROVIDERS: PCP Nurse Practitioner Family; Referring Provider Internal Medicine Rheumatology; Visit Provider Internal Medicine Rheumatology
DX: M05.70 Rheumatoid arthritis with rheumatoid factor of unspecified site without organ or systems involvement (principal); Z79.899 Other long term (current) drug therapy
CPT/HCPCS: 36415; 80053; 85025

== ENCOUNTER → 2023-03-07 | Outpatient (CLI) | payer MEDICARE, SELFPAY ==
--- NOTE | 2023-03-07 08:15 | BD_ITS ---
STUDY: DUAL ENERGY X-RAY ABSORPTIOMETRY / DXA REASON FOR EXAM: Female, 77 years old. [id number] TECHNIQUE: Bone Mineral Density (BMD) measurements of lumbar spine and bilateral hips were obtained. COMPARISON: Comparison is made with prior study October 15, 2020. FINDINGS: Lumbar Spine (L1-L4): g/cm2 (0.888) / T-score (-1.2) / Z-score (1.3) Findings are suggestive of osteopenia with a low fracture risk. Left Femur Total: g/cm2 (0.743) / T-score (-1.6) / Z-score (0.3) Left Femoral Neck: g/cm2 (0.722) / T-score (-1.1) / Z-score (1.0) Right Femur Total: g/cm2 (0.707) / T-score (-1.9) / Z-score (0.0) Right Femoral Neck: g/cm2 (0.704) / T-score (-1.3) / Z-score (0.9) The T-Scores on the most recent prior examination were: Lumbar Spine (L1-L4): There has been worsening of bone density since the previous examination. Left Femur Total: which represents a worsening of 5.8%. Right Femur Total: which represents a worsening of 3.9%. BD/Dexa Bone Density Study IMPRESSION: The patient is considered osteopenic as outlined below according to World Connor Organization (WHO) criteria with a moderate fracture risk. There has been worsening of bone density since the previous examination. Reference Information: The T-score is the number of standard deviations above or below the standard which is normal for young adults at their peak bone mineral density. The World Health Organization (WHO) interprets the T-scores as follows: Above -1 Normal bone density Between -1 and -2.5 Osteopenia Equal to / or below -2.5 Osteoporosis As a practical clinical guideline, osteopenia may be graded as follows: Mild -1 through -1.5 Moderate -1.6 through -2.0 Severe -2.1 through -2.4 The Z-score is the number of standard deviations above or below age-matched controls. A Z-score of less than -1.5 would be considered abnormal. References: 1. NIH Osteoporosis and Related Bone Diseases www osteo.org 2. International Society for Clinical Densitometry www iscd.org 3. National Osteoporosis Foundation www nof.org Electronically Signed: Gabriel Linton MD at 10:58 EST ,
== END | disposition home or self-care (01) ==
LOC: OPBD 07:40
PROVIDERS: PCP Nurse Practitioner Family; Referring Provider Nurse Practitioner Family; Visit Provider Nurse Practitioner Family
DX: Z78.0 Asymptomatic menopausal state (principal)
CPT/HCPCS: 77080

== ENCOUNTER → 2023-07-05 | Outpatient (CLI) | payer MEDICARE, SELFPAY ==
[2023-07-05 09:53] LABS: Absolute Lymphocyte Count 1.21 X10^3/uL (0.83-4.51); Absolute Neutrophil Count 2.3 X10^3/uL (2.0-7.7); Basophil# 0.02 X10^3/uL; Basophil% 0.5 % (0-1); Eosinophil# 0.04 X10^3/uL; Hematocrit 30.3 % (37-47); Hemoglobin 10.1 g/dL (12.0-15.0); Lymphocyte # 1.21 X10^3/ul (0.83-4.51); Lymphocyte % 31.2 % (19-41); Mean Corp Hgb Conc 33.3 g/dL (32-36); Mean Corpuscular Hgb 29.8 pg (27.0-32.0); Mean Corpuscular Volume 89.4 fL (81-99); Mean Platelet Vol. 9.1 fl (6.2-12.0); Monocyte# 0.32 X10^3/uL; Monocyte% 8.2 % (0-10); NRBC Flagged by Analyzer 0 % (0-5); Neutrophil # 2.28 X10^3/uL (2.7-7.7); Neutrophil % 58.8 % (47-70); Platelet Count 265 K/mm3 (150-450); RBC Distribution Width CV 12.2 % (11.6-14.6); Red Blood Count 3.39 M/mm3 (4.2-5.4); White Blood Count 3.9 K/mm3 (4.4-11.0)
[2023-07-05 10:31] LABS: ALB/GLOB Ratio 0.8 RATIO (0.9-2.4); AST(SGOT) 19 U/L (15-37); Alanine Aminotransfer ALT/SGPT 18 U/L (13-56); Albumin, Serum 3.2 g/dL (3.2-5.0); Alkaline Phosphatase 102 U/L (45-117); Anion Gap 4 (5-15); BUN 12 mg/dL (7-18); BUN/Creat Ratio 19.5 RATIO (10-20); Calcium,Total 8.7 mg/dL (8.5-10.1); Chloride 99 mmol/L (98-107); Creatinine, Serum 0.62 mg/dL (0.55-1.02); EST Glomerular Filtration Rate 100 mL/min (>60); Est Glom Filt Rate - Afr Amer 121 mL/min (>60); Globulin 3.8 g/dL (2.2-4.2); Glucose 96 mg/dL (74-106); Potassium 4.1 mmol/L (3.5-5.1); Sodium Level 133 mmol/L (136-145)
== END | disposition home or self-care (01) ==
LOC: LAB 09:22
PROVIDERS: PCP Nurse Practitioner Family; Referring Provider Internal Medicine Rheumatology; Visit Provider Internal Medicine Rheumatology
DX: M05.70 Rheumatoid arthritis with rheumatoid factor of unspecified site without organ or systems involvement (principal); Z79.899 Other long term (current) drug therapy
CPT/HCPCS: 36415; 80053; 85025

== ENCOUNTER → 2023-10-23 | Outpatient (CLI) | payer MEDICARE, SELFPAY ==
--- NOTE | 2023-10-23 08:37 | BI_ITS ---
MAMMOGRAPHY - BILATERAL SCREENING REASON FOR EXAM: Female, 78 years old. Routine annual screening examination. PERTINENT HISTORY: Aunt with breast cancer. TECHNIQUE: Digital bilateral breast chino (3D mammographic acquisition) in the CC and MLO projections. 2-D mediolateral oblique (MLO) and craniocaudad (CC) views of both breasts were obtained. CAD: Full Field Digital Mammography with Computer Added Detection was performed. COMPARISON: Comparison is made with prior study October 19, 2022 and October 18, 2021. FINDINGS: Breast Composition: There are scattered areas of fibroglandular density. There are no dominant masses or suspicious calcifications. Stable 4.6 mm well-defined nodule in the axillary region of the left breast suggestive of a small lymph node. No other significant abnormalities are identified. There has been no significant change since the prior study. BI/SCRN MAMM (CAD)W/CHINO BILAT IMPRESSION: Stable bilateral screening mammogram. Yearly follow-up mammogram recommended. (A) ASSESSMENT CATEGORY: BIRADS Category 2: Benign. A letter regarding these results will be sent to the patient by the facility within 30 days. Approximately 10% of breast cancers are not detected by mammography. A normal mammogram should not delay biopsy of a clinically suspicious abnormality. [id number] Electronically Signed: Gabriel Linton MD at 9:31 EDT ,
== END | disposition home or self-care (01) ==
LOC: OPBI 08:37
PROVIDERS: PCP Nurse Practitioner Family; Referring Provider Nurse Practitioner Family; Visit Provider Nurse Practitioner Family
DX: Z12.31 Encounter for screening mammogram for malignant neoplasm of breast (principal)
CPT/HCPCS: 77063; 77067

== ENCOUNTER → 2023-12-25 | Outpatient (CLI) | payer MEDICARE, SELFPAY ==
[2023-12-25 09:33] LABS: Absolute Lymphocyte Count 1.21 X10^3/uL (0.83-4.51); Absolute Neutrophil Count 2.4 X10^3/uL (2.0-7.7); Basophil# 0.02 X10^3/uL; Basophil% 0.5 % (0-1); Eosinophil# 0.03 X10^3/uL; Eosinophils% 0.7 % (0-5); Hemoglobin 10.1 g/dL (12.0-15.0); Lymphocyte # 1.21 X10^3/ul (0.83-4.51); Lymphocyte % 29.2 % (19-41); Mean Corp Hgb Conc 33.7 g/dL (32-36); Mean Corpuscular Hgb 29.6 pg (27.0-32.0); Mean Platelet Vol. 9.1 fl (6.2-12.0); Monocyte# 0.47 X10^3/uL; Monocyte% 11.4 % (0-10); NRBC Flagged by Analyzer 0 % (0-5); Platelet Count 280 K/mm3 (150-450); RBC Distribution Width CV 12.2 % (11.6-14.6); RBC Distribution Width SD 39.5 fl (35.1-43.9); Red Blood Count 3.41 M/mm3 (4.2-5.4); White Blood Count 4.1 K/mm3 (4.4-11.0)
[2023-12-25 10:38] LABS: ALB/GLOB Ratio 0.8 RATIO (0.9-2.4); AST(SGOT) 19 U/L (15-37); Alanine Aminotransfer ALT/SGPT 20 U/L (13-56); Albumin, Serum 3.2 g/dL (3.2-5.0); Alkaline Phosphatase 100 U/L (45-117); Anion Gap 7 (5-15); BUN 14 mg/dL (7-18); BUN/Creat Ratio 22.5 RATIO (10-20); Calcium,Total 9.3 mg/dL (8.5-10.1); Chloride 100 mmol/L (98-107); Creatinine, Serum 0.62 mg/dL (0.55-1.02); EST Glomerular Filtration Rate 98 mL/min (>60); Est Glom Filt Rate - Afr Amer 119 mL/min (>60); Glucose 89 mg/dL (74-106); Potassium 4.1 mmol/L (3.5-5.1); Protein, Total 7.2 g/dL (6.4-8.2); Sodium Level 135 mmol/L (136-145)
== END | disposition home or self-care (01) ==
LOC: LAB 08:48
PROVIDERS: PCP Nurse Practitioner Family; Referring Provider Internal Medicine Rheumatology; Visit Provider Internal Medicine Rheumatology
DX: M05.70 Rheumatoid arthritis with rheumatoid factor of unspecified site without organ or systems involvement (principal); M35.00 Sjogren syndrome, unspecified; Z79.899 Other long term (current) drug therapy
CPT/HCPCS: 36415; 80053; 85025

== ENCOUNTER → 2024-06-17 | Outpatient (CLI) | payer MEDICARE, SELFPAY ==
[2024-06-17 10:13] LABS: Absolute Lymphocyte Count 1.03 X10^3/uL (0.83-4.51); Absolute Neutrophil Count 2.8 X10^3/uL (2.0-7.7); Basophil# 0.02 X10^3/uL; Basophil% 0.5 % (0-1); Eosinophil# 0.05 X10^3/uL; Eosinophils% 1.1 % (0-5); Hematocrit 29.1 % (37-47); Hemoglobin 9.7 g/dL (12.0-15.0); Lymphocyte # 1.03 X10^3/ul (0.83-4.51); Lymphocyte % 23.5 % (19-41); Mean Corp Hgb Conc 33.3 g/dL (32-36); Mean Corpuscular Hgb 29.8 pg (27.0-32.0); Mean Corpuscular Volume 89.5 fL (81-99); Mean Platelet Vol. 9.5 fl (6.2-12.0); Monocyte# 0.43 X10^3/uL; Monocyte% 9.8 % (0-10); NRBC Flagged by Analyzer 0 % (0-5); Neutrophil # 2.83 X10^3/uL (2.7-7.7); Neutrophil % 64.6 % (47-70); Platelet Count 266 K/mm3 (150-450); RBC Distribution Width CV 12.2 % (11.6-14.6); RBC Distribution Width SD 39.8 fl (35.1-43.9); Red Blood Count 3.25 M/mm3 (4.2-5.4); White Blood Count 4.4 K/mm3 (4.4-11.0)
[2024-06-17 11:08] LABS: ALB/GLOB Ratio 1.2 RATIO (0.9-2.4); AST(SGOT) 21 U/L (<=31); Alanine Aminotransfer ALT/SGPT 15 U/L (<=34); Albumin, Serum 3.6 g/dL (3.4-4.8); Alkaline Phosphatase 101 U/L (35-104); Anion Gap 10 (5-15); BUN 14 mg/dL (4-19); BUN/Creat Ratio 22.2 RATIO (10-20); Calcium,Total 9.1 mg/dL (7.6-11.0); Carbon Dioxide 25.9 mmol/L (21.0-32.0); Chloride 99 mmol/L (98-108); Creatinine, Serum 0.61 mg/dL (0.70-1.20); EST Glomerular Filtration Rate 91 (>60); Glucose 92 mg/dL (70-99); Potassium 3.8 mmol/L (3.3-5.1); Protein, Total 6.6 g/dL (5.9-8.4); Sodium Level 134 mmol/L (133-145); Total Bilirubin 0.19 mg/dL (0.00-1.30)
== END | disposition home or self-care (01) ==
LOC: LAB 08:46
PROVIDERS: PCP Nurse Practitioner Family; Referring Provider Internal Medicine Rheumatology; Visit Provider Internal Medicine Rheumatology
DX: M05.70 Rheumatoid arthritis with rheumatoid factor of unspecified site without organ or systems involvement (principal); Z79.899 Other long term (current) drug therapy
CPT/HCPCS: 36415; 80053; 85025

== ENCOUNTER → 2024-08-13 | Outpatient (CLI) | payer MEDICARE, SELFPAY ==
--- NOTE | 2024-08-13 10:42 | SP.MBSS_ITS ---
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 Zamarripa, for cough of unknown origin per patient report. She is unsure if she coughing is from foods/liquids vs. mucous vs. speaking/singing, but when she starts to cough it triggers her asthma and she requires her inhaler. It occurs ~1X/week, sometimes at meals and sometimes unrelated to food/drink. Hx of PNA 2X, once in childhood and once >5 years ago. This MBSS was ordered to rule out concern for aspiration related cough. Medical History: Epilepsy, HLD, HTN, Seizures, Vertigo, Anemia, Hx of Tonsillectomy, See EMR for full PMH. Current Diet Ordered: Regular textures / Thin liquids Dentition: Upper Dentures and Lower Dentures Mental Status: WNL Respiratory Status: Oxygenating on Room Air Penetration-Aspiration Scale Penetration-Aspiration Scale: OBJECTIVE ASSESSMENT OF SWALLOW FUNCTION (QUANTITATIVE ? PER TRIAL): PENETRATION / ASPIRATION SCALE (CANDELARIO): 1 = does not enter airway 2 = enters airway/above vocal folds/ejected 3 = enters airway/above vocal folds/not ejected 4 = enters airway/contacts vocal folds/ejected 5 = enters airway/contacts vocal folds/not ejected 6 = enters airway/below vocal folds/ejected 7 = enters airway/below vocal folds/not ejected despite effort 8 = enters airway/below vocal folds/no effort VIDEOFLOROSCOPIC SCALE SCORE (CANDELARIO): Grade I = aspiration of material that has penetrated into the laryngeal vestibule, intact cough reflex Grade II = aspiration < 10 % of the bolus, intact cough reflex Grade III = aspiration of < 10 % of the bolus, reduced cough reflex or aspiration of > 10 % of the bolus, intact cough reflex Grade IV = aspiration of > 10 % of the bolus, reduced cough reflex Penetration-Aspiration Scale Score Thin Liquid via teaspoon: Result: 1= does not enter airway Thin Liquid via teaspoon Trial 2: Result: 2= enter airway/above vocal folds/ejected Thin Liquid via large single sip: cup: Result: 2= enter airway/above vocal folds/ejected Thin Liquid via sequential sips: cup: Result: 2= enter airway/above vocal folds/ejected Pudding via teaspoon: Result: 1= does not enter airway Comment: Esophageal screen - Very mild retention in the upper esophagus. 1/2 Cookie: Result: 1= does not enter airway Comment: Esophageal screen - Mild retention in the upper esophagus. Thin Liquid via sequential sips:straw: Result: 1= does not enter airway Comment: Esophageal screen - Retention of liquids in the lower esophagus w/ retrograde flow to the middle-upper esophagus w/ eventual clearance through the LES. Cookie retention from previous trial also fully cleared. Oral Phase Labial Seal: No Labial Escape Tongue Control During Bolus Hold: Posterior escape of less than half of bolus (large sips) Bolus Preparation/Mastication: Disorganized chewing/mashing with solid pieces of bolus unchewed (small pieces of cookie appeared un-chewed) Bolus Transport/Lingual Motion: Delayed initiation of tongue motion Oral Residue: Residue collection on oral structures Pharyngeal Phase Initiation of Pharyngeal Swallow: Bolus head at posterior laryngeal surgace of epiglottis Soft Palate Elevation: Trace column of contrast/air between soft palate and pharyngeal wall Laryngeal Elevation: Partial superior movement thyroid cart/partial apprx aryt- epig petiole Anterior Hyoid Excursion: Complete anterior movement Epiglottic Movement: Complete inversion Laryngeal Vestibule Closure at Height of Swallow: Incomplete; narrow column of air/contrast in laryngeal vestibule Pharyngeal Stripping Wave: Present - diminished Pharyngoesophageal Segment Opening: Complete distension and complete duration; no obstruction of flow Tongue Base Retraction: Wide column of contrast between tongue base & post. pharyngeal wall Pharyngeal Residue: Collection of residue within or on pharyngeal structures Diagnosis/Impression Diagnosis: Mild oropharyngeal dysphagia R13.12; Mild esophageal dysphagia R13.14 Impression: The oral phase is primarily marked by... -Mildly decreased bolus control w/ posterior loss of <1/2 of large thin liquid sips to the posterior surface of the epiglottis prior to swallow onset. -Mildly delayed tongue motion for A-P transport -Small pieces of cookie appeared un-chewed. Mild oral residues of cookie. The pharyngeal phase is primarily marked by... -Decreased TB retraction and pharyngeal stripping wave w/ moderate pharyngeal residue of cookie, which mostly cleared w/ independent use of a second swallow. -Decreased laryngeal elevation during the swallow w/ laryngeal penetration of thin liquids that fully ejected after the swallow was complete. No aspiration observed. Pt is possibly sensate to laryngeal penetration of thin liquids; howev er, no cough was elicited during the evaluation. She did note feeling a tickle in her throat on the second trial. The esophageal phase is primarily marked by... -Mild esophageal retention of pudding and cookie in the upper esophagus (more noticeable w/ cookie trial). Liquid wash was effective in clearing residues from the upper esophagus; however, retention of liquids in the lower esophagus w/ re trograde flow to the middle-upper esophagus w/ eventual clearance through the LES. Other findings: Small CP bar at the level of C4, which did not appear to impact bolus clearance through the UES. Recommendations Diet: Regular Textures and Thin Liquids Compensatory Strategies: Small Bites (Chew thoroughly), Small Sips, Slow Rate, Multiple Swallows (Pt independently completed a second swallow as needed.), Alternate bites/solids and sips/liquids, Sitting upright and Remain sitting upright for 30 minutes after PO intake Recommend Repeat Modified Barium Swallow: No Need for Skilled Speech Therapy Services: Yes Comment: -Train the patient in use of strategies to decrease risk for aspiration and reflux aspiration. -Ongoing assessment of diet tolerance of recommended textures. -Train the patient in oropharyngeal exercise program to improve pharyngeal motility, TB retraction, and, laryngeal elevation (Effortful, Katherine, Johana). Recommended Referrals: GI Consult Education Completed: 1. Described result of evaluation., 2. Pt understands evaluation & agrees with goals and treatment plan. and 7. Pt requires further education on strategies & risks. Status Active ST Patient: Active Contact Information [facility] Speech Therapy:: Michelle Ahs M.A. [facility]-ASSOCIATE TRAINER? Speech-Language Pathologist?? [facility] [address] [place] [address]? [email or web address]?? [phone]
== END | disposition home or self-care (01) ==
LOC: RAD 09:44
PROVIDERS: PCP Nurse Practitioner Family; Referring Provider Internal Medicine Pulmonary Disease; Visit Provider Internal Medicine Pulmonary Disease
DX: R05.9 Cough, unspecified (principal)
CPT/HCPCS: 74230; 92611

== ENCOUNTER → 2024-10-24 | Outpatient (CLI) | payer MEDICARE, SELFPAY ==
--- NOTE | 2024-10-24 07:36 | BI_ITS ---
EXAM: SCRN MAMM (CAD)W/CHINO BILAT DATE: 10/24/2024 CLINICAL HISTORY: F, Age 79 y/o , SCRN MAMM (CAD)W/CHINO BILAT Aunt with breast cancer. TECHNIQUE: SCRN MAMM (CAD)W/CHINO BILAT COMPARISON: Prior exam(s) dated October 23, 2023.. FINDINGS: TISSUE DENSITY: There are scattered areas of fibroglandular density. Bilateral Breast Mammographic Findings: No significant masses, calcifications or other abnormalities are identified. Stable 4.6 mm well-defined nodule with a fatty center in the axillary region of the left breast suggestive of a small lymph node. No suspicious masses, areas of developing architectural distortion, or suspicious calcifications. There has been no significant interval change. BI/SCRN MAMM (CAD)W/CHINO BILAT IMPRESSION: Stable examination. OVERALL FINAL ASSESSMENT BI-RADS 2: BENIGN RECOMMENDATION: Routine annual follow-up in 1 Year A letter with findings and recommendations will be mailed to the patient. Reading Location: [facility]
== END | disposition home or self-care (01) ==
LOC: OPBI 07:35
PROVIDERS: PCP Nurse Practitioner Family; Referring Provider Nurse Practitioner Family; Visit Provider Nurse Practitioner Family
DX: Z12.31 Encounter for screening mammogram for malignant neoplasm of breast (principal); Z80.3 Family history of malignant neoplasm of breast
CPT/HCPCS: 77063; 77067

== ENCOUNTER → 2024-12-09 | Outpatient (CLI) | payer MEDICARE, SELFPAY ==
[2024-12-09 10:39] LABS: Hematocrit 32.3 % (37-47); Hemoglobin 10.8 g/dL (12.0-15.0); Immature Granulocytes Count 0.020 X10^3/uL (0.0-0.0); Mean Corp Hgb Conc 33.4 g/dL (32-36); Mean Corpuscular Volume 87.8 fL (81-99); Mean Platelet Vol. 9.1 fl (6.2-12.0); NRBC Flagged by Analyzer 0 % (0-5); Platelet Count 294 K/mm3 (150-450); RBC Distribution Width CV 12.4 % (11.6-14.6); RBC Distribution Width SD 40.0 fl (35.1-43.9); Red Blood Count 3.68 M/mm3 (4.2-5.4); White Blood Count 4.4 K/mm3 (4.4-11.0)
[2024-12-09 11:35] LABS: AST(SGOT) 23 U/L (<=31); Alanine Aminotransfer ALT/SGPT 17 U/L (<=34); Albumin, Serum 3.8 g/dL (3.4-4.8); Alkaline Phosphatase 105 U/L (35-104); Anion Gap 12 (5-15); BUN 11 mg/dL (4-19); BUN/Creat Ratio 18.6 RATIO (10-20); Calcium,Total 9.5 mg/dL (7.6-11.0); Carbon Dioxide 24.7 mmol/L (21.0-32.0); Chloride 98 mmol/L (98-108); Globulin 3.1 g/dL (2.2-4.2); Glucose 96 mg/dL (70-99); Potassium 4.7 mmol/L (3.3-5.1)
== END | disposition home or self-care (01) ==
PROVIDERS: PCP Nurse Practitioner Family; Referring Provider Internal Medicine Rheumatology; Visit Provider Internal Medicine Rheumatology
DX: M05.70 Rheumatoid arthritis with rheumatoid factor of unspecified site without organ or systems involvement (principal); M35.00 Sjogren syndrome, unspecified; Z79.899 Other long term (current) drug therapy
CPT/HCPCS: 36415; 80053; 85025